=== PATIENT | female | born 1945 | race Caucasian/White ===

== ENCOUNTER 2016-10-02 17:36 | Emergency (ER) | payer MEDICARE, OTHER ==
[~2016-10-02] VITALS: Ht 167.6 cm; Wt 98.6 kg
[~2016-10-02 17:36] MED LIST: ASPI81CH7 CHEW; ATOR20TA15 PO; CALTTAB PO; CHOL100025 CHEW; COQ1200C PO; ISOS30TA3 PO; KRIL300C PO; LEVO75TA3 PO; LOSA100T2 PO; METO25TA6 PO; MULT-120 PO; NEXI20CA PO; VERA120T3 PO; ZOFR4TAB PO
[2016-10-02 17:45] VITALS: BP 145/91; PULSE 118; RESP 20; TEMP 98.3; O2SAT 96
[2016-10-02] MEDS ORDERED: ATOR20TA15 PO (18:20)
[2016-10-02] MEDS ORDERED: [UNRECOGNIZED DRUG - CODE] SL (18:20)
[2016-10-02] MEDS ORDERED: SENN8.6T8 PO (18:20)
[2016-10-02] MEDS ORDERED: ASCO1CHW3 PO (18:20)
[2016-10-02] MEDS ORDERED: CHOL100025 CHEW (18:20)
[2016-10-02] MEDS ORDERED: LACTCAP8 PO (18:20)
[2016-10-02] MEDS ORDERED: LOSA100T2 PO (18:20)
[2016-10-02] MEDS ORDERED: VERA1TAB17 PO (18:20)
[2016-10-02] MEDS ORDERED: TEMA15CA PO (18:20)
[2016-10-02] MEDS ORDERED: ONDA1TAB17 PO (18:20)
[2016-10-02] MEDS ORDERED: NEXI20CA PO (18:20)
[2016-10-02] MEDS ORDERED: HYDR-3516 PO (18:20)
--- NOTE | 2016-10-02 19:09 | PD ---
HPI Chief Complaint: Abdominal Pain Time Seen by Provider: 18:35 Travel History International Travel<30 days: No Contact w/Intl Traveler<30days: No Traveled to known affect area: No History of Present Illness HPI This 71-year-old female is complaining of abdominal pain. She has a history of metastatic breast cancer. She was initially diagnosed in 2008. She had a recurrence in 2012 and recently was found to have metastases to her liver and lung area and she sees Dr. Baptiste and started on chemotherapy recently. She is on about her fourth course of chemotherapy. He needed a blood and platelet transfusion last week. She thought she had some fever earlier but on further questioning it was only 99 8. She has a slight dry cough. She was having abdominal pain earlier the pain was across the epigastric area. She has no history of pancreatitis. PFSH Past Medical History Hx Anticoagulant Therapy: Yes (162MG. BABY ASA DAILY) Arthritis: Yes Asthma: No Autoimmune Disease: No Anxiety: No Depression: No Heart Rhythm Problems: Yes Cancer: Yes (BREAST, LYMPH) Cardiovascular Problems: Yes (HTN, CHOL) High Cholesterol: Yes Chemotherapy: Yes (09/30/16) Chest Pain: Yes Congestive Heart Failure: No COPD: No Cerebrovascular Accident: No Diabetes: Yes (PRE) Patient Takes Glucophage: No Diminished Hearing: Yes ([place] E[place]) Endocrine: Yes Gastrointestinal Disorders: Yes GERD: Yes Genitourinary: Yes Headaches: No Hiatal Hernia: No Heparin Induced Thrombocytopen: No Hypertension: Yes Immune Disorder: No Implanted Vascular Access Dvce: Yes Kidney Stones: No Musculoskeletal: Yes Neurologic: Yes Psychiatric: No Reproductive: No Respiratory: No Migraines: No Radiation Therapy: Yes (4 YEARS AGO) Renal Failure: No Seizures: No Sickle Cell Disease: No Sleep Apnea: Yes (C PAP AT NIGHT) Thyroid Disease: Yes Ulcer: No Tetanus Vaccination: < 5 Years Influenza Vaccination: Yes ?: Not Menopausal: Yes : 4 Para: 4 Tubal Ligation: Yes Past Surgical History Abdominal Surgery: No AICD: No Arteriovenous Shunt: No Cardiac Surgery: No Ear Surgery: No Endocrine Surgery: No Eye Surgery: No Genitourinary Surgery: No Hysterectomy: Yes Insulin Pump: No Joint Replacement: No Neurologic Surgery: No Oral Surgery: Yes (TONSILLECTOMY) Pacemaker: No Thoracic Surgery: No Tonsillectomy: Yes Other Surgery: Yes (Deviated septum repair ) Family History Family Hypercholesterolemia: Yes (BROTHER) Social History Alcohol Use: Yes (Rare) Tobacco Use: No Substance Use: No Allergies-Medications (Allergen,Severity, Reaction): Coded Allergies: Doxazosin (Verified Allergy, Severe, Anaphylaxis, 10/02/16) Doxycycline (Verified Allergy, Severe, Anaphylaxis, 10/02/16) Levaquin (Verified Allergy, Severe, Anaphylaxis, 10/02/16) Phenobarbital (Verified Allergy, Severe, Hives, 10/02/16) Silvadene (Verified Allergy, Severe, Rash, 10/02/16) Sulfa (Verified Allergy, Severe, Rash, 10/02/16) Zometa (Verified Allergy, Unknown, 10/02/16) Reported Meds & Prescriptions Reported Meds & Active Scripts Active Reported Hydrocodone-Acetaminophen 5-325 mg Tab 1 Tab PO Q6H PRN Temazepam 15 Mg Cap 15 Mg PO HS PRN Ondansetron (Ondansetron HCl) 8 Mg Tab 8 Mg PO TID PRN Vitamin C Gummies (Ascorbic Acid) 120 Mg Chew 1 Chew PO HS Nexium (Esomeprazole DR) 20 Mg Capdr 20 Mg PO DAILY Probiotic (Lactobacillus Acidophilus) 1 Cap Cap 1 Cap PO DAILY B-12-Sl (Cyanocobalamin) 1,000 Mcg Subl 5,000 Mcg SL DAILY Vitamin D3 (Cholecalciferol) 1,000 Unit Chew 2,000 Units CHEW DAILY Atorvastatin (Atorvastatin Calcium) 20 Mg Tab 20 Mg PO HS Losartan-Hydrochlorothiazide 100-25 Mg Tab 1 Tab PO DAILY Verapamil ER 24 HR (Verapamil HCl) 240 Mg Tab 120 Mg PO DAILY Krill Oil 300 Mg Cap 350 Mg PO DAILY Coq10 (Coenzyme Q10 (Ubidecarenone)) 200 Mg Cap 1 Cap PO DAILY Caltrate 600+D (Calcium Carbonate-Cholecalciferol) 600-800 Mg-Unit Tab 1 Tab PO DAILY Multivitamin Women (Multiple Vitamins W/ Minerals) 1 Tab Tab 1 Tab PO DAILY Aspirin Children's (Aspirin) 81 Mg Chew 162 Mg CHEW DAILY Metoprolol Succinate ER 24 HR (Metoprolol Succinate) 25 Mg Tab 25 Mg PO DAILY Isosorbide Mononitrate ER (Isosorbide Mononitrate) 30 Mg [place]rey 30 Mg PO DAILY Levothyroxine (Levothyroxine Sodium) 75 Mcg Tab 75 Mcg PO DAILY Review of Systems General / Constitutional: No: Fever, Chills Eyes: No: Diploplia HENT: No: Vertigo Cardiovascular: No: Chest Pain or Discomfort Respiratory: No: Cough, Wheezing Gastrointestinal: Positive: Nausea, Abdominal Pain Genitourinary: No: Frequency Musculoskeletal: No: Myalgias, Arthralgias Skin: No Rash Neurologic: No: Weakness Hematologic/Lymphatic: No: Easy Bruising Physical Exam Narrative GENERAL: Well-developed female SKIN: Warm and dry. HEAD: Atraumatic. Normocephalic. EYES: Pupils equal and round. No scleral icterus. No injection or drainage. ENT: No nasal bleeding or discharge. Mucous membranes pink and moist. NECK: Trachea midline. No JVD. CARDIOVASCULAR: Regular rate and rhythm. No murmur appreciated. RESPIRATORY: No accessory muscle use. Clear to auscultation. Breath sounds equal bilaterally. GASTROINTESTINAL: Abdomen soft, no focal tenderness or guarding nondistended. Hepatic and splenic margins not palpable. MUSCULOSKELETAL: No obvious deformities. No clubbing. No cyanosis. No edema. NEUROLOGICAL: Awake and alert. No obvious cranial nerve deficits. Motor grossly within normal limits. Normal speech. PSYCHIATRIC: Appropriate mood and affect; insight and judgment normal. Data Data Last Documented VS Vital Signs Date Time Temp Pulse Resp B/P Pulse Ox O2 Delivery O2 Flow Rate FiO2 10/02/16 19:15 101 18 160/89 98 Room Air 10/02/16 17:45 98.3 Orders Complete Blood Count With Diff (10/02/16 18:55) Comprehensive Metabolic Panel (10/02/16 18:55) Lipase (10/02/16 18:55) Urinalysis - C+S If Indicated (10/02/16 18:55) Ct Abd/Pel W Iv Contrast(Rout) (10/02/16 20:18) Iohexol 350 Inj (Omnipaque 350 Inj) (10/02/16 21:25) Hydromorphone Pf Inj (Dilaudid Pf Inj) (10/02/16 22:00) Ondansetron Inj (Zofran Inj) (10/02/16 22:00) Labs Laboratory Tests Test 10/02/16 19:42 White Blood Count 5.0 TH/MM3 Red Blood Count 3.79 MIL/MM3 Hemoglobin 10.6 GM/DL Hematocrit 32.5 % Mean Corpuscular Volume 85.8 FL Mean Corpuscular Hemoglobin 27.9 PG Mean Corpuscular Hemoglobin 32.5 % Concent Red Cell Distribution Width 19.0 % Platelet Count 60 TH/MM3 Mean Platelet Volume 7.4 FL Neutrophils (%) (Auto) 92.2 % Lymphocytes (%) (Auto) 5.2 % Monocytes (%) (Auto) 2.3 % Eosinophils (%) (Auto) 0.2 % Basophils (%) (Auto) 0.1 % Neutrophils # (Auto) 4.6 TH/MM3 Lymphocytes # (Auto) 0.3 TH/MM3 Monocytes # (Auto) 0.1 TH/MM3 Eosinophils # (Auto) 0.0 TH/MM3 Basophils # (Auto) 0.0 TH/MM3 CBC Comment AUTO DIFF Differential Comment AUTO DIFF CONFIRMED Platelet Estimate LOW Platelet Morphology Comment NORMAL Ovalocytes 1+ Urine Collection Type CLEAN CATCH Urine Color RICKEY Urine Turbidity CLEAR Urine pH 5.5 Urine Specific [place] 1.020 Urine Protein 30 mg/dL Urine Glucose (UA) NEG mg/dL Urine Ketones NEG mg/dL Urine Occult Blood SMALL Urine Nitrite NEG Urine Bilirubin SMALL Urine Leukocyte Esterase NEG Urine RBC 4-9 /hpf Urine WBC 0-2 /hpf Urine Squamous Epithelial 0-5 /hpf Cells Microscopic Urinalysis Comment CULT NOT INDICATED Sodium Level 138 MEQ/L Potassium Level 4.3 MEQ/L Chloride Level 102 MEQ/L Carbon Dioxide Level 26.7 MEQ/L Anion Gap 9 MEQ/L Blood Urea Nitrogen 33 MG/DL Creatinine 0.96 MG/DL Estimat Glomerular Filtration 57 ML/MIN Rate Random Glucose 109 MG/DL Calcium Level 10.0 MG/DL Total Bilirubin 2.0 MG/DL Aspartate Amino Transf 431 U/L (AST/SGOT) Alanine Aminotransferase 342 U/L (ALT/SGPT) Alkaline Phosphatase 580 U/L Total Protein 6.3 GM/DL Albumin 2.7 GM/DL Lipase 126 U/L [facility] Medical Decision Making Medical Screen Exam Complete: Yes Emergency Medical Condition: Yes Medical Record Reviewed: Yes Differential Diagnosis Differential includes gastritis, progressive cancer, ulcer disease, pancreatitis , adverse medication reaction Narrative Course Patient has elevation of her LFTs compared to previously. A CT scan was ordered which shows fairly extensive disease throughout the liver. Suspect her pain is secondary to progression of her metastatic disease Diagnosis Primary Impression: Metastatic breast cancer Additional Instructions: Take hydrocodone for pain, follow-up with Dr. BLACKMAN Disposition: 01 DISCHARGE HOME Condition: Stable Damon Toth MD Oct 02, 2016 19:09
[2016-10-02 19:15] VITALS: BP 160/89; PULSE 101; RESP 18; O2SAT 98
[2016-10-02 19:50] LABS: BLOOD, URINE SMALL (NEG); GLUCOSE,URINE NEG (NEG); KETONE, URINE NEG (NEG); NITRITE,URINE NEG (NEG); PH, URINE 5.5 (5.0-8.5)
[2016-10-02 19:51] LABS: AUTOMATED NEUTROPHIL # 4.6 TH/MM3 (1.8-7.7); BASOPHIL % 0.1 % (0.0-2.0); EOSINOPHIL % 0.2 % (0.0-4.0); HEMATOCRIT 32.5 % (35.0-46.0); LYMPH % 5.2 % (9.0-44.0); LYMPHOCYTE # 0.3 TH/MM3 (1.0-4.8); MEAN CELL VOLUME 85.8 FL (80.0-100.0); MEAN CORPUSCULAR HEMOGLOBIN 27.9 PG (27.0-34.0); MEAN CORPUSCULAR HGB CONC 32.5 % (32.0-36.0); MONO % 2.3 % (0.0-8.0); NEUT % 92.2 % (16.0-70.0); PLATELET COUNT 60 TH/MM3 (150-450); RED BLOOD COUNT 3.79 MIL/MM3 (4.00-5.30)
[2016-10-02 19:52] LABS: HEMO FLAGS AUTO DIFF
[2016-10-02 19:59] LABS: CHLORIDE 102 MEQ/L (98-107); POTASSIUM 4.3 MEQ/L (3.5-5.1); SODIUM (NA) 138 MEQ/L (136-145)
[2016-10-02 20:03] LABS: ANION GAP 9 MEQ/L (5-15); BICARBONATE 26.7 MEQ/L (21.0-32.0); BLOOD UREA NITROGEN 33 MG/DL (7-18)
[2016-10-02 20:05] LABS: OVALOCYTES 1+ (NORMAL); PLATELET ESTIMATE SMEAR LOW (NORMAL); PLATELET MORPHOLOGY NORMAL (NORMAL); SCAN/DIFF AUTO DIFF CONFIRMED
[2016-10-02 20:06] LABS: ALT (GPT) 342 U/L (10-53); AST (GOT) 431 U/L (15-37); GLOMERULAR FILTRATION RATE 57 ML/MIN (>89)
[2016-10-02 20:08] LABS: ALKALINE PHOSPHATASE 580 U/L (45-117)
[2016-10-02 20:12] LABS: URINE COLOR AMBER (YELLW/STRAW)
[2016-10-02 20:13] LABS: SQUAMOUS EPITHELIAL CELL URINE 0-5 /hpf (0-5); WBC, URINE 0-2 /hpf (0-5)
[2016-10-02 20:15] LABS: COMMENT (UR) CULT NOT INDICATED; CULTURE IF INDICATED CULT NOT INDICATED
[2016-10-02 21:12] LABS: METHOD OF COLLECTION CLEAN CATCH
[2016-10-02] MEDS ORDERED: IOHEXOL 350 MG/ML 10 ML VIAL (for RAD DIAG) IV ONE (21:25)
--- NOTE | 2016-10-02 21:46 | RADHPO ---
EXAM DATE/TIME: 10/02/2016 20:53 [facility] COMPARISON: No previous studies available for comparison. INDICATIONS : Diffuse abdominal pain. IV CONTRAST: 96 cc Omnipaque 350 (iohexol) IV ORAL CONTRAST: No oral contrast ingested. RADIATION DOSE: 19.71 CTDIvol (mGy) MEDICAL HISTORY : Carcinoma, breast. Metastatic, liver. Hypertension. SURGICAL HISTORY : Mastectomy, right. Hysterectomy. ENCOUNTER: Initial ACUITY: 1 day PAIN SCALE: 7/10 LOCATION: Abdomen. TECHNIQUE: Volumetric scanning of the abdomen and pelvis was performed. Using automated exposure control and ad justment of the mA and/or kV according to patient size, radiation dose was kept as low as reasonably achievable to obtain optimal diagnostic quality images. FINDINGS: LOWER LUNGS: There is an enlarged infrahilar lymph node versus perihilar mass in the left lower lobe with some adj acent consolidative parenchymal changes. Soft tissue density measures just over 2 cm. LIVER: Innumerable low density lesions of varying sizes involving both right and left lobes consistent with metastatic disease. No evidence of biliary ductal dilatation. Gallbladder is distended with mild diff use wall thickening. SPLEEN: Slightly greater than 1 cm low density lesion in the inferior aspect of the spleen. PANCREAS: Within normal limits. KIDNEYS: Large cyst arising from the posterior aspect of the right kidney. Smaller cysts in the lower pole reg ion. No hydronephrosis. ADRENAL GLANDS: Prominent nodular enlargement of the right adrenal gland. VASCULAR: There is no aortic aneurysm. BOWEL/MESENTERY: The stomach, small bowel, and colon demonstrate no acute abnormality. There is no free intraperitone al air or fluid. ABDOMINAL WALL: Within normal limits. RETROPERITONEUM: Mildly enlarged lymph nodes in the gastrohepatic ligament and celiac region. BLADDER: No wall thickening or mass. REPRODUCTIVE: Uterus surgically absent. No evidence of pelvic mass or free fluid. INGUINAL: There is no lymphadenopathy or hernia. MUSCULOSKELETAL: Within normal limits for patient age. CONCLUSION: Left infrahilar and medial left lung base process which is to be further evaluated. Recommend standar d contrasted CT of the chest for followup. Multiple liver metastases. Nonspecific distention and wall thickening involving the gallbladder. Nodular enlargement of the right adrenal gland. Haiedr Conley MD on October 02, 2016 at 21:36 Board Certified Radiologist. This report was verified electronically.
[2016-10-02] MEDS ORDERED: ONDANSETRON HCL 4 MG/2 ML VIAL IV PUSH ONE (22:00)
[2016-10-02] MEDS ORDERED: HYDROmorphone HCL PF 1 MG/ML VIAL IV PUSH ONE (22:00)
[2016-10-02 22:33] VITALS: BP 143/83; PULSE 95; RESP 18; O2SAT 95
[2016-10-02 22:38] VITALS: RESP 16
== END 2016-10-02 22:55 | disposition home or self-care (01) ==
LOC: PHED 17:36
DX: C78.7 Secondary malignant neoplasm of liver and intrahepatic bile duct (principal); C78.00 Secondary malignant neoplasm of unspecified lung; Z79.82 Long term (current) use of aspirin; I10 Essential (primary) hypertension; C50.919 Malignant neoplasm of unspecified site of unspecified female breast
CPT/HCPCS: 74177; 80053; 81001; 83690; 85025; 96374; 96375; 99284; J1170; J2405; Q9967

== ENCOUNTER 2016-10-18 21:38 | Emergency (ER) | payer MEDICARE, OTHER ==
[~2016-10-18] VITALS: Ht 167.6 cm; Wt 98.0 kg
[~2016-10-18 21:38] MED LIST changes: +ASCO1CHW3 PO; +HYDR-3516 PO; +LACTCAP8 PO; +ONDA1TAB17 PO; +TEMA15CA PO; -VERA120T3 PO; +VERA1TAB17 PO; -ZOFR4TAB PO; +[UNRECOGNIZED DRUG - CODE] SL
[2016-10-18 21:52] VITALS: BP 140/86; PULSE 110; RESP 18; TEMP 98.7; O2SAT 95
--- NOTE | 2016-10-18 22:14 | PD ---
HPI Chief Complaint: Flank/Kidney Pain Time Seen by Provider: 22:10 Travel History International Travel<30 days: No Contact w/Intl Traveler<30days: No Traveled to known affect area: No History of Present Illness HPI This is a 71-year-old female who has a history of metastatic breast cancer who presents to the emergency department with generalized weakness that's been going on for 2-3 days, constant, moderate severity, described as fatigued, not able to get up from her couch, feeling like she is drained. She does say she had a fever of 101.7 today. She has had a nonproductive cough. She is being seen by Dr. Hays for a gallbladder infection. She says her abdominal pain has been resolving. Her daughter says that her family has noticed that she's been very confused today, not able to tell them what medication she is taking, mixing things up, and trying to turn the TV off with her phone. They say this is unlike her. PFSH Past Medical History Hx Anticoagulant Therapy: Yes (162MG. BABY ASA DAILY) Arthritis: Yes Asthma: No Autoimmune Disease: No Anxiety: No Depression: No Heart Rhythm Problems: Yes Cancer: Yes (BREAST, LYMPH) Cardiovascular Problems: Yes (HTN, CHOL) High Cholesterol: Yes Chemotherapy: Yes (3 weeks ago) Chest Pain: Yes Congestive Heart Failure: No COPD: No Cerebrovascular Accident: No Diabetes: Yes (PRE) Diminished Hearing: Yes ([place] EAR) Endocrine: Yes Gastrointestinal Disorders: Yes GERD: Yes Genitourinary: Yes Headaches: No Hiatal Hernia: No Heparin Induced Thrombocytopen: No Hypertension: Yes Immune Disorder: No Implanted Vascular Access Dvce: Yes Kidney Stones: No Musculoskeletal: Yes Neurologic: Yes Psychiatric: No Reproductive: No Respiratory: No Migraines: No Radiation Therapy: Yes (4 YEARS AGO) Renal Failure: No Seizures: No Sickle Cell Disease: No Sleep Apnea: Yes (C PAP AT NIGHT) Thyroid Disease: Yes Ulcer: No ?: Not Menopausal: Yes : 4 Para: 4 Tubal Ligation: Yes Past Surgical History Abdominal Surgery: No AICD: No Arteriovenous Shunt: No Cardiac Surgery: No Ear Surgery: No Endocrine Surgery: No Eye Surgery: No Genitourinary Surgery: No Hysterectomy: Yes Insulin Pump: No Joint Replacement: No Neurologic Surgery: No Oral Surgery: Yes (TONSILLECTOMY) Pacemaker: No Thoracic Surgery: No Tonsillectomy: Yes Other Surgery: Yes (Deviated septum repair ) Family History Family Hypercholesterolemia: Yes (BROTHER) Social History Alcohol Use: Yes (Rare) Tobacco Use: No Substance Use: No Allergies-Medications (Allergen,Severity, Reaction): Coded Allergies: Doxazosin (Verified Allergy, Severe, Anaphylaxis, 10/02/16) Doxycycline (Verified Allergy, Severe, Anaphylaxis, 10/02/16) Levaquin (Verified Allergy, Severe, Anaphylaxis, 10/02/16) Phenobarbital (Verified Allergy, Severe, Hives, 10/02/16) Silvadene (Verified Allergy, Severe, Rash, 10/02/16) Sulfa (Verified Allergy, Severe, Rash, 10/02/16) Zometa (Verified Allergy, Unknown, 10/02/16) Reported Meds & Prescriptions Reported Meds & Active Scripts Active Reported Hydrocodone-Acetaminophen 5-325 mg Tab 1 Tab PO Q6H PRN Temazepam 15 Mg Cap 15 Mg PO HS PRN Ondansetron (Ondansetron HCl) 8 Mg Tab 8 Mg PO TID PRN Vitamin C Gummies (Ascorbic Acid) 120 Mg Chew 1 Chew PO HS Nexium (Esomeprazole DR) 20 Mg Capdr 20 Mg PO DAILY Probiotic (Lactobacillus Acidophilus) 1 Cap Cap 1 Cap PO DAILY B-12-Sl (Cyanocobalamin) 1,000 Mcg Subl 5,000 Mcg SL DAILY Vitamin D3 (Cholecalciferol) 1,000 Unit Chew 2,000 Units CHEW DAILY Atorvastatin (Atorvastatin Calcium) 20 Mg Tab 20 Mg PO HS Losartan-Hydrochlorothiazide 100-25 Mg Tab 1 Tab PO DAILY Verapamil ER 24 HR (Verapamil HCl) 240 Mg Tab 120 Mg PO DAILY Krill Oil 300 Mg Cap 350 Mg PO DAILY Coq10 (Coenzyme Q10 (Ubidecarenone)) 200 Mg Cap 1 Cap PO DAILY Caltrate 600+D (Calcium Carbonate-Cholecalciferol) 600-800 Mg-Unit Tab 1 Tab PO DAILY Multivitamin Women (Multiple Vitamins W/ Minerals) 1 Tab Tab 1 Tab PO DAILY Aspirin Children's (Aspirin) 81 Mg Chew 162 Mg CHEW DAILY Metoprolol Succinate ER 24 HR (Metoprolol Succinate) 25 Mg Tab 25 Mg PO DAILY Isosorbide Mononitrate ER (Isosorbide Mononitrate) 30 Mg [place] 30 Mg PO DAILY Levothyroxine (Levothyroxine Sodium) 75 Mcg Tab 75 Mcg PO DAILY Review of Systems Except as stated in HPI: all other systems reviewed are Neg Physical Exam Narrative GENERAL: Frail, no acute distress SKIN: Dry with skin tenting HEAD: Atraumatic. Normocephalic. EYES: Pupils equal and round. No injection or drainage. ENT: Dry mucous membranes NECK: Trachea midline. CARDIOVASCULAR: Regular rate and rhythm. No murmur appreciated. RESPIRATORY: Clear to auscultation. Breath sounds equal bilaterally. GASTROINTESTINAL: Abdomen soft, non-tender, nondistended. MUSCULOSKELETAL: No obvious deformities. NEUROLOGICAL: Awake and alert. No obvious cranial nerve deficits. Moving all extremities. PSYCHIATRIC: Appropriate mood and affect; insight and judgment normal. Data Data Last Documented VS Vital Signs Date Time Temp Pulse Resp B/P Pulse Ox O2 Delivery O2 Flow Rate FiO2 10/18/16 21:52 98.7 110 18 140/86 95 Orders Complete Blood Count With Diff (10/18/16 22:10) Comprehensive Metabolic Panel (10/18/16 22:10) ^ Insert Iv (10/18/16 22:10) Ct Brain W Iv Contrast (10/18/16 ) Type And Screen (10/18/16 22:10) Prothrombin Time / Inr (Pt) (10/18/16 22:10) Act Partial Throm Time (Ptt) (10/18/16 22:10) Urinalysis - C+S If Indicated (10/18/16 22:10) Chest, Single Ap (10/18/16 ) Blood Culture (10/18/16 22:10) Lactic Acid (10/18/16 22:10) Sodium Chlor 0.9% 1000 Ml Inj (Ns 1000 M (10/18/16 23:15) Influenzae A/B Antigen (10/18/16 23:03) Sodium Chlor 0.9% 1000 Ml Inj (Ns 1000 M (10/19/16 00:00) Iohexol 350 Inj (Omnipaque 350 Inj) (10/18/16 23:55) Labs Laboratory Tests Test 10/18/16 10/18/16 22:20 23:20 White Blood Count 5.0 TH/MM3 Red Blood Count 3.26 MIL/MM3 Hemoglobin 9.4 GM/DL Hematocrit 28.7 % Mean Corpuscular Volume 88.1 FL Mean Corpuscular Hemoglobin 28.8 PG Mean Corpuscular Hemoglobin 32.7 % Concent Red Cell Distribution Width 23.0 % Platelet Count 92 TH/MM3 Mean Platelet Volume 7.7 FL Neutrophils (%) (Auto) % Lymphocytes (%) (Auto) % Monocytes (%) (Auto) % Eosinophils (%) (Auto) % Basophils (%) (Auto) % Neutrophils # (Auto) TH/MM3 Lymphocytes # (Auto) TH/MM3 Monocytes # (Auto) TH/MM3 Eosinophils # (Auto) TH/MM3 Basophils # (Auto) TH/MM3 CBC Comment AUTO DIFF Differential Total Cells 100 Counted Neutrophils % (Manual) 61 % Lymphocytes % 19 % Monocytes % 19 % Eosinophils % 1 % Neutrophils # (Manual) 3.1 TH/MM3 Differential Comment FINAL DIFF MANUAL Platelet Estimate LOW Platelet Morphology Comment NORMAL Ovalocytes 1+ Prothrombin Time 11.4 SEC Prothromb Time International 1.0 RATIO Ratio Activated Partial 27.6 SEC Thromboplast Time Sodium Level 138 MEQ/L Potassium Level 3.9 MEQ/L Chloride Level 102 MEQ/L Carbon Dioxide Level 24.9 MEQ/L Anion Gap 11 MEQ/L Blood Urea Nitrogen 28 MG/DL Creatinine 1.20 MG/DL Estimat Glomerular Filtration 44 ML/MIN Rate Random Glucose 159 MG/DL Lactic Acid Level 2.3 mmol/L Calcium Level 8.9 MG/DL Total Bilirubin 0.7 MG/DL Aspartate Amino Transf 125 U/L (AST/SGOT) Alanine Aminotransferase 59 U/L (ALT/SGPT) Alkaline Phosphatase 506 U/L Total Protein 6.3 GM/DL Albumin 2.7 GM/DL Blood Type A NEGATIVE Antibody Screen NEGATIVE Urine Color YELLOW Urine Turbidity CLEAR Urine pH 5.5 Urine Specific [place] 1.009 Urine Protein NEG mg/dL Urine Glucose (UA) NEG mg/dL Urine Ketones NEG mg/dL Urine Occult Blood MOD Urine Nitrite NEG Urine Bilirubin NEG Urine Leukocyte Esterase NEG Urine RBC 0-3 /hpf Urine Squamous Epithelial 0-5 /hpf Cells Urine Mucus OCC /lpf Microscopic Urinalysis Comment CULT NOT INDICATED MDM Medical Decision Making Medical Screen Exam Complete: Yes Emergency Medical Condition: Yes Interpretation(s) Afebrile, tachycardic White blood cell count is 5 Hemoglobin is 9.4 Platelet count is 92 19% monocytes Mild renal insufficiency Lactic acid is 2.3 LFTs are improved from September Urinalysis is negative for infection Chest x-ray is negative for pneumonia CT is negative for acute process Differential Diagnosis Pneumonia, urinary tract infection, cholecystitis, dehydration, brain metastases Narrative Course This is a 71-year-old female who presents to the emergency department with 3 days of increasing weakness, fever today, and reports from her family that she has been increasingly confused. She is placed on a monitor and an IV was established. Labs are obtained which demonstrates some dehydration with acute kidney injury and a lactic acid of 2.3. White blood cell count is normal and demonstrates a monocytic shift. She is afebrile here. She is pancytopenic but doesn't require platelets or blood transfusion at this time. Chest x-ray was negative for pneumonia and urinalysis is negative for urinary tract infection. She's had cystitis recently by her biliary labs are improved from prior and she has no tenderness on exam. She is nontoxic appearing. A CT with IV contrast of the brain was obtained due to concerns about the patient's mental status which was reassuring with no evidence of metastatic disease. I think the patient can be discharged home following 2 L of IV fluids and she can follow-up with her outpatient oncologist. I suspect her symptoms are in the setting of dehydration and a viral syndrome. Diagnosis Primary Impression: Viral syndrome Additional Impression: Dehydration Patient Instructions: General Instructions Additional Instructions: If you develop severe or worsening abdominal pain, fever>100.4, persistent vomiting or inability to eat or drink return to the emergency department immediately. Follow up with your primary care physician in 1-2 days for a check-up. Med/Other Pt SpecificInfo: No Change to Meds Disposition: 01 DISCHARGE HOME Condition: Stable Gita Aldana MD Oct 18, 2016 22:14
[2016-10-18 22:48] LABS: HEMATOCRIT 28.7 % (35.0-46.0); MEAN CELL VOLUME 88.1 FL (80.0-100.0); MEAN CORPUSCULAR HEMOGLOBIN 28.8 PG (27.0-34.0); MEAN CORPUSCULAR HGB CONC 32.7 % (32.0-36.0); PLATELET COUNT 92 TH/MM3 (150-450); RED BLOOD COUNT 3.26 MIL/MM3 (4.00-5.30)
[2016-10-18 22:54] LABS: HEMO FLAGS AUTO DIFF
[2016-10-18 22:56] LABS: CHLORIDE 102 MEQ/L (98-107); POTASSIUM 3.9 MEQ/L (3.5-5.1); SODIUM (NA) 138 MEQ/L (136-145)
[2016-10-18 23:00] LABS: ANION GAP 11 MEQ/L (5-15); BICARBONATE 24.9 MEQ/L (21.0-32.0); BLOOD UREA NITROGEN 28 MG/DL (7-18)
[2016-10-18 23:03] LABS: ALT (GPT) 59 U/L (10-53); AST (GOT) 125 U/L (15-37); GLOMERULAR FILTRATION RATE 44 ML/MIN (>89)
[2016-10-18 23:05] LABS: TOTAL BILIRUBIN ADULT 0.7 MG/DL (0.2-1.0)
[2016-10-18 23:06] LABS: ALKALINE PHOSPHATASE 506 U/L (45-117)
--- NOTE | 2016-10-18 23:06 | RADHPO ---
EXAM DATE/TIME: 10/18/2016 22:47 [facility] COMPARISON: CHEST SINGLE AP, June 18, 2016, 14:47. INDICATIONS : Fever. Chemo patient. MEDICAL HISTORY : Carcinoma, lung. Carcinoma, breast. SURGICAL HISTORY : Hysterectomy. Infusaport ENCOUNTER: Initial ACUITY: 2 days PAIN SCORE: 6/10 LOCATION: Bilateral chest FINDINGS: A single view of the chest demonstrates right [id number] in superior vena cava. Minimal basilar at electasis. No effusion. No pneumothorax. Heart size within normal limits. Multiple remote right rib f ractures. CONCLUSION: 1. Minimal basilar atelectasis. No effusion or pneumothorax. Aaron Sewell MD on October 18, 2016 at 23:01 Board Certified Radiologist. This report was verified electronically.
[2016-10-18] MEDS ORDERED: SODIUM CHLOR 0.9% 1000 ML INJ 1,000 ML IV ONE (23:15)
[2016-10-18 23:19] LABS: EOSINOPHILS 1 % (0-4); NEUTROPHIL # MANUAL DIFF 3.1 TH/MM3 (1.8-7.7); POLYS (SEG NEUTROPHILS) 61 % (16-70); WBC DIFF SAMPLE 100
[2016-10-18 23:20] LABS: OVALOCYTES 1+ (NORMAL)
[2016-10-18 23:21] LABS: PLATELET ESTIMATE SMEAR LOW (NORMAL); PLATELET MORPHOLOGY NORMAL (NORMAL); SCAN/DIFF FINAL DIFF MANUAL
[2016-10-18 23:34] LABS: APTT (PATIENT) 27.6 SEC (24.3-30.1); PROTHROMBIN TIME - PATIENT 11.4 SEC (9.8-11.6)
[2016-10-18 23:43] LABS: GLUCOSE,URINE NEG (NEG); KETONE, URINE NEG (NEG); NITRITE,URINE NEG (NEG); PH, URINE 5.5 (5.0-8.5)
[2016-10-18 23:45] VITALS: BP 152/80; PULSE 75; RESP 18; O2SAT 97
[2016-10-18 23:51] LABS: BLOOD, URINE MOD (NEG)
[2016-10-18 23:54] LABS: URINE COLOR YELLOW (YELLW/STRAW)
[2016-10-18 23:55] LABS: MUCUS URINE OCC /lpf (OCC)
[2016-10-18] MEDS ORDERED: IOHEXOL 350 MG/ML 10 ML VIAL (for RAD DIAG) IV ONE (23:55)
[2016-10-18 23:56] LABS: SQUAMOUS EPITHELIAL CELL URINE 0-5 /hpf (0-5)
[2016-10-18 23:57] LABS: COMMENT (UR) CULT NOT INDICATED; CULTURE IF INDICATED CULT NOT INDICATED; RBC, URINE 0-3 /hpf (0-3)
[2016-10-19] MEDS ORDERED: SODIUM CHLOR 0.9% 1000 ML INJ 1,000 ML IV ONE
--- NOTE | 2016-10-19 00:19 | RADHPO ---
EXAM DATE/TIME: 10/18/2016 23:25 [facility] COMPARISON: No previous studies available for comparison. INDICATIONS : Altered mental status. Metastatic disease. IV CONTRAST: 95 cc Omnipaque 350 (iohexol) IV RADIATION DOSE: 56.62 CTDIvol (mGy) MEDICAL HISTORY : Hypertension. Carcinoma, breast. SURGICAL HISTORY : Tonsillectomy. ENCOUNTER: Initial ACUITY: 1 day PAIN SCALE: 0/10 LOCATION: cranial TECHNIQUE: Multiple contiguous axial images were obtained of the head. Using automated exposure control and adj ustment of the mA and/or kV according to patient size, radiation dose was kept as low as reasonably a chievable to obtain optimal diagnostic quality images. FINDINGS: CEREBRUM: The ventricles are normal for age. No evidence of midline shift, cerebral edema or blood products. No extra-axial fluid collections are seen. POSTERIOR FOSSA: The cerebellum and brainstem are intact. The 4th ventricle is midline. The cerebellar pontine angle is unremarkable. EXTRACRANIAL: The visualized portion of the orbits is intact. SKULL: The calvaria is intact. No evidence of skull fracture. CONCLUSION: No acute intracranial abnormality. Charly Ibanez MD on October 19, 2016 at 0:16 Board Certified Radiologist. This report was verified electronically.
[2016-10-19 01:05] VITALS: BP 155/78; PULSE 89; RESP 17; O2SAT 96
[2016-10-19 01:56] VITALS: BP 142/77
== END 2016-10-19 01:55 | disposition home or self-care (01) ==
LOC: PHED 21:38
DX: B34.9 Viral infection, unspecified (principal); E86.0 Dehydration; C50.919 Malignant neoplasm of unspecified site of unspecified female breast; I10 Essential (primary) hypertension
CPT/HCPCS: 70460; 71010; 80053; 81001; 83605; 85007; 85027; 85610; 85730; 86850; 86900; 86901; 87040; 87804; 96360; 99285; J7030; Q9967

== ENCOUNTER 2016-11-06 02:23 | Inpatient (IN) | payer MEDICARE, OTHER ==
[~2016-11-06] VITALS: Ht 167.6 cm; Wt 88.9 kg
[2016-11-06] VITALS (8 sets, daily range): BP systolic 136–172; BP diastolic 78–92; PULSE 82–105; RESP 16–18; TEMP 97.7–98.8; O2SAT 97–99
[2016-11-06] MEDS ORDERED: SODIUM CHLORID 0.9% 500 ML INJ 500 ML IV ONE (02:45)
[2016-11-06 02:54] LABS: AUTOMATED NEUTROPHIL # 2.9 TH/MM3 (1.8-7.7); BASOPHIL % 0.5 % (0.0-2.0); EOSINOPHIL % 0.7 % (0.0-4.0); HEMATOCRIT 30.2 % (35.0-46.0); LYMPH % 18.1 % (9.0-44.0); LYMPHOCYTE # 0.9 TH/MM3 (1.0-4.8); MEAN CELL VOLUME 93.9 FL (80.0-100.0); MEAN CORPUSCULAR HEMOGLOBIN 31.1 PG (27.0-34.0); MEAN CORPUSCULAR HGB CONC 33.1 % (32.0-36.0); MONO % 21.3 % (0.0-8.0); NEUT % 59.4 % (16.0-70.0); PLATELET COUNT 46 TH/MM3 (150-450); RED BLOOD COUNT 3.21 MIL/MM3 (4.00-5.30); WHITE BLOOD COUNT 4.9 TH/MM3 (4.0-11.0)
--- NOTE | 2016-11-06 03:06 | PD ---
HPI Chief Complaint: General Weakness Time Seen by Provider: 02:33 Travel History International Travel<30 days: No Contact w/Intl Traveler<30days: No Traveled to known affect area: No History of Present Illness HPI 71yo F with PMH of metastatic breast CA presents to the ED with c/o progressive generalized weakness in the last week. States she also had 10 pound weight loss in last week. Pt felt like her heart was beating fast and HR was 110 by EVAC. Denies any fever, chest pain, sob, vomiting. Pt has RUQ abdominal pain and was recently evaluated and thought to have cholecystitis. Pt was evaluated by Dr. aHys and recommended observation since liver enzymes were trending down and pt also had low platelets and had platelet transfusion last week. Pt saw Dr. Brownlee on 10/14/16 and said last chemo was right before . PFSH Past Medical History Hx Anticoagulant Therapy: Yes (162MG. BABY ASA DAILY) Arthritis: Yes Asthma: No Autoimmune Disease: No Anxiety: No Depression: No Heart Rhythm Problems: Yes Cancer: Yes (BREAST, LYMPH) Cardiovascular Problems: Yes (HTN, CHOL) High Cholesterol: Yes Chemotherapy: Yes (3 weeks ago) Chest Pain: Yes Congestive Heart Failure: No COPD: No Cerebrovascular Accident: No Diabetes: Yes (PRE) Patient Takes Glucophage: No Diminished Hearing: Yes ([place]) Endocrine: Yes Gastrointestinal Disorders: Yes GERD: Yes Genitourinary: Yes Headaches: No Hiatal Hernia: No Heparin Induced Thrombocytopen: No Hypertension: Yes Immune Disorder: No Implanted Vascular Access Dvce: Yes (port) Kidney Stones: No Musculoskeletal: Yes Neurologic: Yes Psychiatric: No Reproductive: No Respiratory: No Migraines: No Radiation Therapy: Yes (4 YEARS AGO) Renal Failure: No Seizures: No Sickle Cell Disease: No Sleep Apnea: Yes (C PAP AT NIGHT) Thyroid Disease: Yes Ulcer: No Tetanus Vaccination: < 5 Years Influenza Vaccination: Yes Menopausal: Yes : 4 Para: 4 Tubal Ligation: Yes Past Surgical History Abdominal Surgery: No AICD: No Arteriovenous Shunt: No Cardiac Surgery: No Ear Surgery: No Endocrine Surgery: No Eye Surgery: No Genitourinary Surgery: No Hysterectomy: Yes Insulin Pump: No Joint Replacement: No Neurologic Surgery: No Oral Surgery: Yes (TONSILLECTOMY) Pacemaker: No Thoracic Surgery: No Tonsillectomy: Yes Other Surgery: Yes (Deviated septum repair ) Family History Family Hypercholesterolemia: Yes (BROTHER) Social History Alcohol Use: Yes (Rare) Tobacco Use: No Substance Use: No Allergies-Medications (Allergen,Severity, Reaction): Coded Allergies: Doxazosin (Verified Allergy, Severe, Anaphylaxis, 11/06/16) Doxycycline (Verified Allergy, Severe, Anaphylaxis, 11/06/16) Levaquin (Verified Allergy, Severe, Anaphylaxis, 11/06/16) Phenobarbital (Verified Allergy, Severe, Hives, 11/06/16) Silvadene (Verified Allergy, Severe, Rash, 11/06/16) Sulfa (Verified Allergy, Severe, Rash, 11/06/16) Zometa (Verified Allergy, Unknown, 11/06/16) Reported Meds & Prescriptions Reported Meds & Active Scripts Active Reported Hydrocodone-Acetaminophen 5-325 mg Tab 1 Tab PO Q6H PRN Temazepam 15 Mg Cap 15 Mg PO HS PRN Ondansetron (Ondansetron HCl) 8 Mg Tab 8 Mg PO TID PRN Vitamin C Gummies (Ascorbic Acid) 120 Mg Chew 1 Chew PO HS Nexium (Esomeprazole DR) 20 Mg Capdr 20 Mg PO DAILY Probiotic (Lactobacillus Acidophilus) 1 Cap Cap 1 Cap PO DAILY B-12-Sl (Cyanocobalamin) 1,000 Mcg Subl 5,000 Mcg SL DAILY Vitamin D3 (Cholecalciferol) 1,000 Unit Chew 2,000 Units CHEW DAILY Atorvastatin (Atorvastatin Calcium) 20 Mg Tab 20 Mg PO HS Losartan-Hydrochlorothiazide 100-25 Mg Tab 1 Tab PO DAILY Verapamil ER 24 HR (Verapamil HCl) 240 Mg Tab 120 Mg PO DAILY Krill Oil 300 Mg Cap 350 Mg PO DAILY Coq10 (Coenzyme Q10 (Ubidecarenone)) 200 Mg Cap 1 Cap PO DAILY Caltrate 600+D (Calcium Carbonate-Cholecalciferol) 600-800 Mg-Unit Tab 1 Tab PO DAILY Multivitamin Women (Multiple Vitamins W/ Minerals) 1 Tab Tab 1 Tab PO DAILY Aspirin Children's (Aspirin) 81 Mg Chew 162 Mg CHEW DAILY Metoprolol Succinate ER 24 HR (Metoprolol Succinate) 25 Mg Tab 25 Mg PO DAILY Isosorbide Mononitrate ER (Isosorbide Mononitrate) 30 Mg [place] 30 Mg PO DAILY Levothyroxine (Levothyroxine Sodium) 75 Mcg Tab 75 Mcg PO DAILY Review of Systems Except as stated in HPI: all other systems reviewed are Neg Physical Exam Narrative GENERAL: 71yo F in mild distress. SKIN: Focused skin assessment warm/dry. HEAD: Atraumatic. Normocephalic. EYES: Pupils equal and round. No scleral icterus. No injection or drainage. ENT: No nasal bleeding or discharge. Mucous membranes dry. NECK: Trachea midline. No JVD. CARDIOVASCULAR: Mildly tachycardic at 105bpm. No murmur appreciated. RESPIRATORY: No accessory muscle use. Clear to auscultation. Breath sounds equal bilaterally. GASTROINTESTINAL: Abdomen soft, +TTP RUQ. No rebound tenderness or guarding. MUSCULOSKELETAL: No obvious deformities. No clubbing. No cyanosis. No edema. NEUROLOGICAL: Awake and alert. No obvious cranial nerve deficits. Motor grossly within normal limits. Normal speech. PSYCHIATRIC: Appropriate mood and affect; insight and judgment normal. Data Data Last Documented VS Vital Signs Date Time Temp Pulse Resp B/P Pulse Ox O2 Delivery O2 Flow Rate FiO2 11/06/16 02:32 105 18 94 Room Air 11/06/16 02:28 98.8 139/92 Orders Complete Blood Count With Diff (11/06/16 02:33) Basic Metabolic Panel (Bmp) (11/06/16 02:33) Hepatic Functional Panel (11/06/16 02:33) Electrocardiogram (11/06/16 ) Urinalysis - C+S If Indicated (11/06/16 02:33) Ct Abd/Pel W Iv Contrast(Rout) (11/06/16 ) Sodium Chlorid 0.9% 500 Ml Inj (Ns 500 M (11/06/16 02:45) Lactic Acid Sepsis Protocol (11/06/16 02:33) Blood Culture (11/06/16 02:33) Piperacil-Tazo 2.25 Gm Premix (Zosyn 2.2 (11/06/16 04:00) Sodium Chlor 0.9% 1000 Ml Inj (Ns 1000 M (11/06/16 04:00) Iohexol 350 Inj (Omnipaque 350 Inj) (11/06/16 04:20) Morphine Inj (Morphine Inj) (11/06/16 04:45) Labs Laboratory Tests Test 11/06/16 11/06/16 02:37 03:19 White Blood Count 4.9 TH/MM3 Red Blood Count 3.21 MIL/MM3 Hemoglobin 10.0 GM/DL Hematocrit 30.2 % Mean Corpuscular Volume 93.9 FL Mean Corpuscular Hemoglobin 31.1 PG Mean Corpuscular Hemoglobin 33.1 % Concent Red Cell Distribution Width 28.0 % Platelet Count 46 TH/MM3 Mean Platelet Volume 9.8 FL Neutrophils (%) (Auto) 59.4 % Lymphocytes (%) (Auto) 18.1 % Monocytes (%) (Auto) 21.3 % Eosinophils (%) (Auto) 0.7 % Basophils (%) (Auto) 0.5 % Neutrophils # (Auto) 2.9 TH/MM3 Lymphocytes # (Auto) 0.9 TH/MM3 Monocytes # (Auto) 1.0 TH/MM3 Eosinophils # (Auto) 0.0 TH/MM3 Basophils # (Auto) 0.0 TH/MM3 CBC Comment AUTO DIFF Differential Comment AUTO DIFF CONFIRMED Platelet Estimate LOW Platelet Morphology Comment NORMAL Ovalocytes 1+ Sodium Level 134 MEQ/L Potassium Level 4.2 MEQ/L Chloride Level 99 MEQ/L Carbon Dioxide Level 26.5 MEQ/L Anion Gap 9 MEQ/L Blood Urea Nitrogen 32 MG/DL Creatinine 1.01 MG/DL Estimat Glomerular Filtration 54 ML/MIN Rate Random Glucose 120 MG/DL Lactic Acid Level 2.4 mmol/L Calcium Level 11.4 MG/DL Total Bilirubin 3.2 MG/DL Direct Bilirubin 2.4 MG/DL Indirect Bilirubin 0.8 MG/DL Aspartate Amino Transf 264 U/L (AST/SGOT) Alanine Aminotransferase 115 U/L (ALT/SGPT) Alkaline Phosphatase 973 U/L Total Protein 6.3 GM/DL Albumin 2.6 GM/DL Urine Color ORANGE Urine Turbidity HAZY Urine pH 5.5 Urine Specific [place] 1.024 Urine Protein 30 mg/dL Urine Glucose (UA) NEG mg/dL Urine Ketones NEG mg/dL Urine Occult Blood MOD Urine Nitrite NEG Urine Bilirubin NEG Urine Urobilinogen 4.0 MG/DL Urine Leukocyte Esterase NEG Urine RBC 7 /hpf Urine WBC 3 /hpf Urine Squamous Epithelial 6 /hpf Cells Urine Hyaline Casts 13 /lpf Urine Mucus FEW /lpf Microscopic Urinalysis Comment CULT NOT INDICATED MDM Medical Decision Making Medical Screen Exam Complete: Yes Emergency Medical Condition: Yes Interpretation(s) EKG: NSR 98bpm. Normal axis. No ST segment elevation or depression. Differential Diagnosis Tumor lysis syndrome vs. Sepsis vs. chemo induced weakness vs. spread of metastatic disease vs. cholecystitis Narrative Course 71yo F with metastatic breast cancer to liver, femur and lung here with worsening generalized weakness that has been worst this week. Pt given morphine 6mg IV for pain. Said she cant even walk and has not been able to eat or drink much. Labs reviewed, no leukocytosis but pt [place]. [place] [address] but improved from previous. Lactic acid mildly elevated at 2.4. BUN/creatinine elevated at 32/1.01. Calcium elevated at 11.4. AST/ALT/Alk phos markedly elevated from 10/18/16 at 264/115/973. UA showed moderate blood. Culture not indicated. CTa/p showed widespread hepatic metastatic disease. There is small ascites. Pt given 1.5liters of NS IVF so far as well as zosyn. Pt had taken her zofran prior to ED arrival and was not that nauseous. Will admit pt for hypercalcemia, dehydration, and worsening heptatic metastatic disease. Discussed with Dr. [place] and accepted to her service. Diagnosis Primary Impression: Dehydration Additional Impression: Hypercalcemia Admitting Information Admitting Physician Requests: Observation Lucina Nesbitt DO Nov 06, 2016 03:06
[2016-11-06 03:20] LABS: BICARBONATE 26.5 MEQ/L (21.0-32.0); POTASSIUM 4.2 MEQ/L (3.5-5.1)
[2016-11-06 03:22] LABS: INDIRECT BILIRUBIN 0.8 MG/DL (0.0-0.8); TOTAL BILIRUBIN ADULT 3.2 MG/DL (0.2-1.0)
[2016-11-06 03:45] LABS: HEMO FLAGS AUTO DIFF
[2016-11-06 03:46] LABS: OVALOCYTES 1+ (NORMAL); PLATELET ESTIMATE SMEAR LOW (NORMAL); PLATELET MORPHOLOGY NORMAL (NORMAL); SCAN/DIFF AUTO DIFF CONFIRMED
[2016-11-06] MEDS ORDERED: PIPERACIL-TAZO 2.25 GM PREMIX 50 ML IV ONE (04:00)
[2016-11-06] MEDS ORDERED: SODIUM CHLOR 0.9% 1000 ML INJ 1,000 ML IV ONE (04:00)
[2016-11-06 04:03] LABS: BLOOD, URINE MOD (NEG); COMMENT (UR) CULT NOT INDICATED; CULTURE IF INDICATED CULT NOT INDICATED; GLUCOSE,URINE NEG (NEG); HYALINE CAST, URINE 13 /lpf (RARE); KETONE, URINE NEG (NEG); MUCUS URINE FEW /lpf (OCC); NITRITE,URINE NEG (NEG); PH, URINE 5.5 (5.0-8.5); SQUAMOUS EPITHELIAL CELL URINE 6 /hpf (0-5)
[2016-11-06 04:04] LABS: URINE COLOR ORANGE (YELLW/STRAW)
[2016-11-06] MEDS ORDERED: IOHEXOL 350 MG/ML 10 ML VIAL (for RAD DIAG) IV ONE (04:20)
--- NOTE | 2016-11-06 04:44 | RADRPT ---
EXAM DATE/TIME: 11/06/2016 04:05 [facility] COMPARISON: CT ABDOMEN & PELVIS W CONTRAST, October 02, 2016, 20:53. INDICATIONS : Abdomnial pain. General weakness. IV CONTRAST: 95 cc Omnipaque 350 (iohexol) IV ORAL CONTRAST: No oral contrast ingested. RADIATION DOSE: 15.46 CTDIvol (mGy) MEDICAL HISTORY : Metastatic, breast. Hypertension. Gastroesophageal reflux disease. SURGICAL HISTORY : Mastectomy, right. Tonsillectomy.Hysterectomy.Tubal ligation. ENCOUNTER: Initial ACUITY: 1 day PAIN SCALE: 5/10 LOCATION: Right upper quadrant TECHNIQUE: Volumetric scanning of the abdomen and pelvis was performed. Using automated exposure control and ad justment of the mA and/or kV according to patient size, radiation dose was kept as low as reasonably achievable to obtain optimal diagnostic quality images. FINDINGS: LOWER LUNGS: Small right pleural effusion similar to before. Subcarinal and left hilar lymphadenopathy partly incl uded on the study and also not definitively changed. LIVER: Innumerable hepatic metastatic lesions are again noted, measuring up to 5.2 cm in size. I don't see a significant change in the number or size of lesions. No intrahepatic Suarez distention. Overall m ild hepatomegaly, 24.5 cm craniocaudal, minimally worse. There are necrotic appearing lymph nodes in the harpreet hepatis not significantly changed. The CT appearance of the gallbladder within normal limit s. SPLEEN: 2 low density lesions are again seen in the spleen unchanged, the largest 12 mm in size. PANCREAS: Within normal limits. KIDNEYS: Normal in size and shape. There is no at mass, stone or hydronephrosis. Unchanged benign cyst on the right. ADRENAL GLANDS: Heterogeneous mass again seen in the right adrenal gland measuring 17 x 51 mm in size, presumably met astatic. Left adrenal gland is normal. VASCULAR: There is no aortic aneurysm. BOWEL/MESENTERY: No obstruction or acute inflammatory changes are demonstrated. Small ascites has developed, perihepat ic and in the pelvic cavity. ABDOMINAL WALL: Within normal limits. RETROPERITONEUM: Scattered aortocaval lymph nodes measuring up to 1 cm unchanged. BLADDER: No wall thickening or mass. REPRODUCTIVE: Within normal limits. INGUINAL: There is no lymphadenopathy or hernia. MUSCULOSKELETAL: Chronic L5 sclerotic area not significantly changed and probably degenerative. No other focal bone le aftab demonstrated. There are old right lower rib fractures and degenerative changes of the spine. CONCLUSION: 1. Widespread hepatic metastatic disease. The lesions are not significantly changed but the liver is slightly larger in the interim and there is now small ascites. 2. The low density lesions of the spleen are unchanged. 3. The right adrenal lesion is not significantly changed. 4. No obstruction or acute inflammatory changes are seen. 5. Pathologic-appearing harpreet hepatis lymphadenopathy again noted. There are upper limits of normal r etroperitoneal lymph nodes. 6. Unchanged sclerotic area right side of the L5 vertebral body, nonspecific but not significantly ch anged and quite possibly degenerative. No other focal bone lesion is demonstrated. 7. Small effusion and subcarinal as well as left hilar lymphadenopathy partly seen of the lower chest . Haider Topete MD on November 06, 2016 at 4:34 Board Certified Radiologist. This report was verified electronically.
[2016-11-06] MEDS ORDERED: MORPHINE SULFATE 8 MG/ML INJ IV PUSH ONE (04:45)
[2016-11-06 04:47] LABS: LACTIC ACID GHOST NOT REPORTABLE
[2016-11-06] MEDS ORDERED: NALOXONE HCL 0.4 MG/ML AMP IV PRN (05:15)
[2016-11-06] MEDS ORDERED: BISACODYL 10 MG SUPP RECTAL PRN (07:30)
--- NOTE | 2016-11-06 07:42 | EKG ---
Date Performed: 11/06/2016 Time Performed: 02:48:05 PTAGE: 71 years EKG: Sinus rhythm NORMAL ECG COMPARED TO PRIOR ELECTROCARDIOGRAM, Premature ventricular contractions are no longer pre sent. PREVIOUS TRACING : 06/18/2016 13.36 DOCTOR: Emerson Dwyer Interpretating Date/Time 11/06/2016 07:40:50
[2016-11-06] MEDS: SODIUM CHLOR 0.9% 1000 ML INJ 1,000 ML IV SCH ×2 (08:17→18:00)
[2016-11-06] MEDS: METOPROLOL SUCCINATE 25 MG EXTENDED RELEASE TAB PO SCH (08:17)
[2016-11-06] MEDS: ISOSORBIDE MONONITRATE 30 MG TAB PO SCH (08:18)
[2016-11-06] MEDS: LEVOTHYROXINE SODIUM 75 MCG TAB PO SCH (08:18)
[2016-11-06] MEDS: SODIUM CHLORIDE 0.9% FLUSH 10 ML FLUSH IV FLUSH SCH ×2 (08:18→21:00)
[2016-11-06] MEDS: LACTOBACILLUS ACIDOPHILUS TAB PO SCH (08:18)
[2016-11-06] MEDS: PANTOPRAZOLE SOD 20 MG DELAYED RELEASE TAB PO SCH (08:18)
[2016-11-06] MEDS: ASPIRIN 81 MG CHEW TAB CHEW SCH (08:18)
[2016-11-06] MEDS: VERAPAMIL HCL 120 MG SUSTAINED RELEASE TAB PO SCH (08:22)
[2016-11-06] MEDS: ONDANSETRON HCL 4 MG/2 ML VIAL IVP PRN ×2 (08:23→16:55)
--- NOTE | 2016-11-06 09:42 | HHI.HP ---
cc: Brandon Brownlee MD HPI Service [facility] Primary Care Physician Brandon Brownlee MD Admission Diagnosis Hypercalcemia, dehydration Diagnoses: Chief Complaint: weakness, abdominal pain Travel History International Travel<30 Days: No Contact w/Intl Traveler <30 Da: No Traveled to Known Affected Are: No History of Present Illness 71-year-old female with history of metastatic breast cancer on palliative chemotherapy, HTN, HLD, GERD, osteoarthritis, CAD, presents with a one-week history of generalized weakness, weight loss, and abdominal pain. She locates the pain to the RUQ without radiation, described as a constant moderate pain, unchanged over the past month. Denies any nausea/vomiting/diarrhea. Denies fevers or chills. She reports poor appetite and has only been able to eat very small amounts. She reports difficulty swallowing solids and sometimes liquids which she believes is getting worse. She has lost 11lbs over the past week. Family at bedside reports she has been deteriorating over the past week and is very unsteady on her feet even with a walker and they are worried about her falling. She has been seeing her oncologist Dr. Brownlee who was concerned for cholecystitis, referred her to general surgeon Dr. Hays who recommended observation for now with liver enzymes trending down. Review of Systems Except as stated in HPI: all other systems reviewed are Neg Past Family Social History Past Medical History metastatic breast cancer on palliative chemotherapy HTN HLD GERD osteoarthritis CAD hypothyroidism peripheral neuropathy hemorrhoids Past Surgical History Infusaport Colonoscopy 2015 Right knee arthroscopy 2015 Mastectomy 2009 Left rotator cuff repair 2008 Tubal ligation 1980 Hysterectomy 1982 Tonsillectomy 1955 Reported Medications Hydrocodone-Acetaminophen 5-325 mg Tab 1 Tab PO Q6H PRN Temazepam 15 Mg Cap 15 Mg PO HS PRN Ondansetron (Ondansetron HCl) 8 Mg Tab 8 Mg PO TID PRN Vitamin C Gummies (Ascorbic Acid) 120 Mg Chew 1 Chew PO HS Nexium (Esomeprazole DR) 20 Mg Capdr 20 Mg PO DAILY Probiotic (Lactobacillus Acidophilus) 1 Cap Cap 1 Cap PO DAILY B-12-Sl (Cyanocobalamin) 1,000 Mcg Subl 5,000 Mcg SL DAILY Vitamin D3 (Cholecalciferol) 1,000 Unit Chew 2,000 Units CHEW DAILY Atorvastatin (Atorvastatin Calcium) 20 Mg Tab 20 Mg PO HS Losartan-Hydrochlorothiazide 100-25 Mg Tab 1 Tab PO DAILY Verapamil ER 24 HR (Verapamil HCl) 240 Mg Tab 120 Mg PO DAILY Krill Oil 300 Mg Cap 350 Mg PO DAILY Coq10 (Coenzyme Q10 (Ubidecarenone)) 200 Mg Cap 1 Cap PO DAILY Caltrate 600+D (Calcium Carbonate-Cholecalciferol) 600-800 Mg-Unit Tab 1 Tab PO DAILY Multivitamin Women (Multiple Vitamins W/ Minerals) 1 Tab Tab 1 Tab PO DAILY Aspirin Children's (Aspirin) 81 Mg Chew 162 Mg CHEW DAILY Metoprolol Succinate ER 24 HR (Metoprolol Succinate) 25 Mg Tab 25 Mg PO DAILY Isosorbide Mononitrate ER (Isosorbide Mononitrate) 30 Mg [place] 30 Mg PO DAILY Levothyroxine (Levothyroxine Sodium) 75 Mcg Tab 75 Mcg PO DAILY Allergies: Coded Allergies: Doxazosin (Verified Allergy, Severe, Anaphylaxis, 11/06/16) Doxycycline (Verified Allergy, Severe, Anaphylaxis, 11/06/16) Levaquin (Verified Allergy, Severe, Anaphylaxis, 11/06/16) Phenobarbital (Verified Allergy, Severe, Hives, 11/06/16) Silvadene (Verified Allergy, Severe, Rash, 11/06/16) Sulfa (Verified Allergy, Severe, Rash, 11/06/16) Zometa (Verified Allergy, Unknown, 11/06/16) Active Ordered Medications Current Medications Medications (Trade) Dose Ordered Sig/Anrdew Route Start Time Stop Time Status Last Admin (NS Flush) 2 ml UNSCH PRN IV FLUSH 11/06/16 05:15 (NS Flush) 2 ml BID IV FLUSH 11/06/16 09:00 11/06/16 08:18 (Narcan Inj) 0.4 mg UNSCH PRN IV 11/06/16 05:15 (Aspirin Chew) 162 mg DAILY CHEW 11/06/16 09:00 11/06/16 08:18 (Lipitor) 20 mg HS PO 11/06/16 21:00 (Imdur) 30 mg DAILY PO 11/06/16 09:00 11/06/16 08:18 (Lactinex) 1 tab DAILY PO 11/06/16 09:00 11/06/16 08:18 (Synthroid) 75 mcg DAILY@06 PO 11/06/16 09:00 11/06/16 08:18 (Toprol Xl) 25 mg DAILY PO 11/06/16 09:00 11/06/16 08:17 (Restoril) 15 mg HS PRN PO 11/06/16 07:30 (Protonix) 20 mg DAILY PO 11/06/16 09:00 11/06/16 08:18 (Isoptin Sr) 120 mg DAILY PO 11/06/16 09:00 11/06/16 08:22 (Zofran Inj) 4 mg Q6H PRN IVP 11/06/16 07:30 11/06/16 08:23 (Dulcolax Supp) 10 mg DAILY PRN RECTAL 11/06/16 07:30 (Roxicodone) 10 mg Q4H PRN PO 11/06/16 08:00 (Morphine Inj) 4 mg Q3H PRN IV 11/06/16 07:30 Oxycodone HCl 5 mg 5 mg Q4H PRN PO 11/06/16 07:30 (NS 1000 ml Inj) 1,000 ml @ 100 mls/hr Q10H IV 11/06/16 08:00 11/06/16 08:17 Family History Mother with hypertension, dementia, age 90 Father with heart disease, age 56 Social History Denies any tobacco, alcohol, or illicit drug use. Physical Exam Vital Signs Vital Signs Date Time Temp Pulse Resp B/P Pulse Ox O2 Delivery O2 Flow Rate FiO2 11/06/16 08:00 97.8 88 18 158/84 97 Nasal Cannula 2 11/06/16 08:00 84 18 97 Nasal Cannula 2 11/06/16 07:07 16 11/06/16 06:47 98.4 82 18 136/78 97 Nasal Cannula 2 11/06/16 02:32 105 18 94 Room Air 11/06/16 02:28 98.8 105 18 139/92 97 Physical Exam GENERAL: Well-nourished, well-developed elderly female patient in [facility]. SKIN: Warm and dry. No rash. HEAD: Normocephalic. Atraumatic. EYES: Pupils equal and round. No scleral icterus. No injection or drainage. ENT: No nasal bleeding or discharge. Mucous membranes pink and moist. Oropharynx with mild white patchy exudate. NECK: Supple. Trachea midline. CARDIOVASCULAR: Regular rate and rhythm. S1, S2 noted. No murmur appreciated. RESPIRATORY: No accessory muscle use. Clear to auscultation. Breath sounds equal bilaterally. GASTROINTESTINAL: Abdomen soft, nondistended, mild diffuse right sided abdominal tenderness to palpation. Normoactive bowel sounds x4. MUSCULOSKELETAL: No obvious deformities. Extremities without clubbing, cyanosis , or edema. NEUROLOGICAL: Awake and alert. No obvious cranial nerve deficits. Motor grossly within normal limits. 5/5 muscle strength in bilateral upper and lower extremities. Normal speech. PSYCHIATRIC: Appropriate mood and affect; insight and judgment normal. Laboratory Laboratory Tests Test 11/06/16 11/06/16 11/06/16 02:37 03:19 05:28 White Blood Count 4.9 Red Blood Count 3.21 Hemoglobin 10.0 Hematocrit 30.2 Mean Corpuscular Volume 93.9 Mean Corpuscular Hemoglobin 31.1 Mean Corpuscular Hemoglobin 33.1 Concent Red Cell Distribution Width 28.0 Platelet Count 46 Mean Platelet Volume 9.8 Neutrophils (%) (Auto) 59.4 Lymphocytes (%) (Auto) 18.1 Monocytes (%) (Auto) 21.3 Eosinophils (%) (Auto) 0.7 Basophils (%) (Auto) 0.5 Neutrophils # (Auto) 2.9 Lymphocytes # (Auto) 0.9 Monocytes # (Auto) 1.0 Eosinophils # (Auto) 0.0 Basophils # (Auto) 0.0 CBC Comment AUTO DIFF Differential Comment AUTO DIFF CONFIRMED Platelet Estimate LOW Platelet Morphology Comment NORMAL Ovalocytes 1+ Sodium Level 134 Potassium Level 4.2 Chloride Level 99 Carbon Dioxide Level 26.5 Anion Gap 9 Blood Urea Nitrogen 32 Creatinine 1.01 Estimat Glomerular Filtration 54 Rate Random Glucose 120 Lactic Acid Level 2.4 2.1 Calcium Level 11.4 Total Bilirubin 3.2 Direct Bilirubin 2.4 Indirect Bilirubin 0.8 Aspartate Amino Transf 264 (AST/SGOT) Alanine Aminotransferase 115 (ALT/SGPT) Alkaline Phosphatase 973 Total Protein 6.3 Albumin 2.6 Urine Color ORANGE Urine Turbidity HAZY Urine pH 5.5 Urine Specific [place] 1.024 Urine Protein 30 Urine Glucose (UA) NEG Urine Ketones NEG Urine Occult Blood MOD Urine Nitrite NEG Urine Bilirubin NEG Urine Urobilinogen 4.0 Urine Leukocyte Esterase NEG Urine RBC 7 Urine WBC 3 Urine Squamous Epithelial 6 Cells Urine Hyaline Casts 13 Urine Mucus FEW Microscopic Urinalysis Comment CULT NOT INDICATED Date/Time Procedure Status Source Growth 11/06/16 02:37 Aerobic Blood Culture Received Blood Peripheral Pending 11/06/16 02:37 Anaerobic Blood Culture Received Blood Peripheral Pending Result Diagram: 11/06/16 0237 11/06/16 0237 Imaging Last Impressions Abdomen/Pelvis CT 11/06/16 0000 Signed Impressions: Service Date/Time: Sunday, November 06, 2016 04:05 - CONCLUSION: 1. Widespread hepatic metastatic disease. The lesions are not significantly changed but the liver is slightly larger in the interim and there is now small ascites. 2. The low density lesions of the spleen are unchanged. 3. The right adrenal lesion is not significantly changed. 4. No obstruction or acute inflammatory changes are seen. 5. Pathologic-appearing harpreet hepatis lymphadenopathy again noted. There are upper limits of normal retroperitoneal lymph nodes. 6. Unchanged sclerotic area right side of the L5 vertebral body, nonspecific but not significantly changed and quite possibly degenerative. No other focal bone lesion is demonstrated. 7. Small effusion and subcarinal as well as left hilar lymphadenopathy partly seen of the lower chest. Haider Topete MD Assessment and Plan Assessment and Plan 71-year-old female with history of metastatic breast cancer on palliative chemotherapy, HTN, HLD, GERD, osteoarthritis, CAD, presents with a one-week history of generalized weakness, weight loss, and right upper quadrant abdominal pain. Generalized Weakness: suspect multifactorial with metastatic breast cancer, abdominal pain, decreased oral intake. Lactic Acid 2.4. Blood cultures collected. UA negative. S/p IV Zosyn in the ED. -Give IVF. -Monitor labs and blood cultures -Consult PT. Metastatic Breast Cancer: undergoing palliative chemotherapy with oncologist Dr. Brownlee -consult Dr. Brownlee -pain control with oxycodone and IV morphine prn Transaminitis with RUQ Abdominal Pain, Weight Loss, Dysphagia: suspect secondary to hepatic metastatic disease vs subacute cholecystitis. CT Abd/ Pelvis images reviewed, showed widespread hepatic metastatic disease; lesions not significantly changed but the liver is slightly larger in the interim and there is now small ascites; low density lesions of the spleen are unchanged; right adrenal lesion is not significantly changed; No obstruction or acute inflammatory changes are seen; Pathologic-appearing harpreet hepatis lymphadenopathy again noted. Liver enzymes trending up now, T. bili 0.7 --> 3.2 , AST 125 --> 264, ALT 59 --> 115, Alk Phos 506 --> 973 -recently evaluated by surgeon Dr. Hays who recommended observation for now with liver enzymes trending down, however now liver enzymes trending up -supportive treatment with IVF, antiemetics, pain control prn. -consulted oncologist Dr. 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 Suspect secondary to dehydration, decreased oral intake. -given IVF -recheck BMP Hypertension: chronic, stable -continue patient's metoprolol and verapamil -held patient's losartan/HCTZ for now with elevated BUN and recent decreased po intake -monitor BP, adjust antihypertensives as needed Hyperlipidemia: chronic, stable -continue patient's statin Hypothyroidism: chronic, stable -continue patient's levothyroxine CAD: chronic, stable -continue patient's aspirin, imdur, BB DVT Prophylaxis: teds/SCDs Written by Amaya Logan, acting as scribe for Dr. Barney on 11/06/16 at 10:55. This note was transcribed by [email or web address]. I, Dr. Karol Barney personally performed the history, physical exam, and medical decision making; and confirmed the accuracy of the information in the transcribed note. Authenticated by Dr. Karol Barney on 11/06/16 at 10:55. Discussed Condition With Patient, Amaya Seo PA-C Nov 06, 2016 09:42 Karol Barney MD Nov 06, 2016 12:38
[2016-11-06 09:57] LABS: AUTOMATED NEUTROPHIL # 1.8 TH/MM3 (1.8-7.7); BASOPHIL % 0.7 % (0.0-2.0); EOSINOPHIL % 1.1 % (0.0-4.0); HEMATOCRIT 26.1 % (35.0-46.0); HEMO FLAGS AUTO DIFF; LYMPH % 19.4 % (9.0-44.0); LYMPHOCYTE # 0.6 TH/MM3 (1.0-4.8); MEAN CELL VOLUME 94.2 FL (80.0-100.0); MEAN CORPUSCULAR HEMOGLOBIN 32.6 PG (27.0-34.0); MEAN CORPUSCULAR HGB CONC 34.6 % (32.0-36.0); MONO % 22.7 % (0.0-8.0); NEUT % 56.1 % (16.0-70.0); PLATELET COUNT 43 TH/MM3 (150-450); RED BLOOD COUNT 2.77 MIL/MM3 (4.00-5.30); RED CELL DISTRIBUTION WIDTH 27.1 % (11.6-17.2); WHITE BLOOD COUNT 3.1 TH/MM3 (4.0-11.0)
[2016-11-06 10:20] LABS: KERATOCYTES OCC (NORMAL)
[2016-11-06 10:21] LABS: OVALOCYTES 1+ (NORMAL); PLATELET ESTIMATE SMEAR LOW (NORMAL); PLATELET MORPHOLOGY NORMAL (NORMAL); SCAN/DIFF AUTO DIFF CONFIRMED
[2016-11-06 10:24] LABS: ALKALINE PHOSPHATASE 854 U/L (45-117); ALT (GPT) 101 U/L (10-53); ANION GAP 6 MEQ/L (5-15); AST (GOT) 248 U/L (15-37); BICARBONATE 26.7 MEQ/L (21.0-32.0); BLOOD UREA NITROGEN 29 MG/DL (7-18); CHLORIDE 102 MEQ/L (98-107); GLOMERULAR FILTRATION RATE 60 ML/MIN (>89); SODIUM (NA) 135 MEQ/L (136-145); TOTAL BILIRUBIN ADULT 2.6 MG/DL (0.2-1.0)
[2016-11-06 10:29] LABS: POTASSIUM 4.5 MEQ/L (3.5-5.1)
--- NOTE | 2016-11-06 10:53 | PD.CONS ---
HPI History of Present Illness This is a 71 year old female with a history of metastatic breast cancer, on palliative chemotherapy, who presents to the ER with a one week history of generalized weakness, weight loss, and right upper quadrant pain. LFTs elevated with T. Bili 2.6, AST 248, ALT 101, Alk Phosph 854. I went in to see the patient, but she was eating lunch and said "We are going to have to do this later, I haven't head anything to eat since 2am and I am eating lunch." I tried to explain that I was with the GI service and just needed to get some information from her so we could hopefully find out why she is having pain and her LFTs were elevated. She agreed to answer a few questions, but is a poor historian. She states that she gets pain in her right upper quadrant. She reports this is intermittent, but that she is unable to describe it or tell me how long she has had it. She does not believe it is related to food intake. She sometimes has nausea, but could not tell me if she vomits with this or if she has had decreased appetite, lost weight, moving her bowels okay, had any fevers or chills. She then stated again that she does not want to answer any more questions and politely asked me to leave so she could finish her meal. Looking at the records, she has metastatic breast cancer and is on Palliative chemotherapy with carboplatin and Gemzar. Prior to this, she had right mastectomy, taxol and avastin, radiation and abraxane and radiation in 2012 for recurrence to the right neck. She was recently seen in the ER for right upper quadrant pain and this was attributed to cholecystitis. She was referred to Dr. Hays, who recommended observation since her liver enzymes and pain had improved and almost resolved when he saw the patient. She came in for weakness , weight loss and right upper quadrant pain. CT scan of the abdomen and pelvis (11/06/16)----> 1. Widespread hepatic metastatic disease. The lesions are not significantly changed but the liver is slightly larger in the interim and there is now small ascites. 2. The low density lesions of the spleen are unchanged. 3. The right adrenal lesion is not significantly changed. 4. No obstruction or acute inflammatory changes are seen. 5. Pathologic-appearing harpreet hepatis lymphadenopathy again noted. There are upper limits of normal retroperitoneal lymph nodes. 6. Unchanged sclerotic area right side of the L5 vertebral body, nonspecific but not significantly changed and quite possibly degenerative. No other focal bone lesion is demonstrated. 7. Small effusion and subcarinal as well as left hilar lymphadenopathy partly seen of the lower chest. The patient reports she is not aware of any metastatic disease to the liver, but according to records, Dr. Brownlee noted that she had a PET scan (05/22/16) which revealed uptake in multiple pulmonary nodules left lung, left hilum, and mediastinum, and multiple liver masses, extensive bone mets, L2, L4, S1, Sacral ala, left proximal femur. There was also a liver biopsy with revealed adenocarcinoma consistent with breast mets. (Ally Rosario) PFSH Past Medical History Metastatic breast cancer on palliative chemotherapy HTN HLD GERD Osteoarthritis CAD Hypothyroidism Peripheral neuropathy Hemorrhoids Past Surgical History Infusaport Colonoscopy 2014 Right knee arthroscopy 2014 Mastectomy 2008 Left rotator cuff repair 2007 Tubal ligation 1979 Hysterectomy 1981 Tonsillectomy 1955 (Ally Rosario) Coded Allergies: Doxazosin (Verified Allergy, Severe, Anaphylaxis, 11/06/16) Doxycycline (Verified Allergy, Severe, Anaphylaxis, 11/06/16) Levaquin (Verified Allergy, Severe, Anaphylaxis, 11/06/16) Phenobarbital (Verified Allergy, Severe, Hives, 11/06/16) Silvadene (Verified Allergy, Severe, Rash, 11/06/16) Sulfa (Verified Allergy, Severe, Rash, 11/06/16) Zometa (Verified Allergy, Unknown, 11/06/16) Medications Allergies Coded Allergies Type Severity Reaction Last Updated Verified Doxazosin Allergy Severe Anaphylaxis 11/06/16 Yes Doxycycline Allergy Severe Anaphylaxis 11/06/16 Yes Levaquin Allergy Severe Anaphylaxis 11/06/16 Yes Phenobarbital Allergy Severe Hives 11/06/16 Yes Silvadene Allergy Severe Rash 11/06/16 Yes Sulfa Allergy Severe Rash 11/06/16 Yes Zometa Allergy Unknown 11/06/16 Yes Active Scripts Medications Dose Route/Sig Days Date Category Hydrocodone-Acetaminophen 5-325 mg Tab 1 Tab PO Q6H PRN 10/02/16 Reported Temazepam 15 Mg Cap 15 Mg PO HS PRN 10/02/16 Reported Ondansetron (Ondansetron HCl) 8 Mg Tab 8 Mg PO TID PRN 10/02/16 Reported Vitamin C Gummies (Ascorbic Acid) 120 Mg Chew 1 Chew PO HS 10/02/16 Reported Nexium (Esomeprazole DR) 20 Mg Capdr 20 Mg PO DAILY 10/02/16 Reported Probiotic (Lactobacillus Acidophilus) 1 Cap Cap 1 Cap PO DAILY 10/02/16 Reported B-12-Sl (Cyanocobalamin) 1,000 Mcg Subl 5,000 Mcg SL DAILY 10/02/16 Reported Vitamin D3 (Cholecalciferol) 1,000 Unit Chew 2,000 Units CHEW DAILY 10/02/16 Reported Atorvastatin (Atorvastatin Calcium) 20 Mg Tab 20 Mg PO HS 10/02/16 Reported Losartan-Hydrochlorothiazide 100-25 Mg Tab 1 Tab PO DAILY 10/02/16 Reported Verapamil ER 24 HR (Verapamil HCl) 240 Mg Tab 120 Mg PO DAILY 10/02/16 Reported Krill Oil 300 Mg Cap 350 Mg PO DAILY 06/18/16 Reported Coq10 (Coenzyme Q10 (Ubidecarenone)) 200 Mg Cap 1 Cap PO DAILY 06/18/16 Reported Caltrate 600+D (Calcium Carbonate-Cholecalciferol) 600-800 Mg-Unit Tab 1 Tab PO DAILY 06/18/16 Reported Multivitamin Women (Multiple Vitamins W/ Minerals) 1 Tab Tab 1 Tab PO DAILY 06/18/16 Reported Aspirin Children's (Aspirin) 81 Mg Chew 162 Mg CHEW DAILY 06/18/16 Reported Metoprolol Succinate ER 24 HR (Metoprolol Succinate) 25 Mg Tab 25 Mg PO DAILY 06/18/16 Reported Isosorbide Mononitrate ER (Isosorbide Mononitrate) 30 Mg [place] 30 Mg PO DAILY 06/18/16 Reported Levothyroxine (Levothyroxine Sodium) 75 Mcg Tab 75 Mcg PO DAILY 06/18/16 Reported Family History Mother with hypertension, dementia, age 90 Father with heart disease, age 56 Social History Denies any tobacco, alcohol, or illicit drug use. (Ally Rosario) Review of Systems Gastrointestinal: COMPLAINS OF: Abdominal pain ROS Pt not cooperative with review of systems. She does report RUQ pain, but did not want to answer any more questions and stated that she wanted to be left alone. (Ally Rosario) GI Exam Vitals I&O Vital Signs Date Time Temp Pulse Resp B/P Pulse Ox O2 Delivery O2 Flow Rate FiO2 11/06/16 09:56 98.0 84 16 140/83 99 Room Air 11/06/16 08:00 97.8 88 18 158/84 97 Nasal Cannula 2 11/06/16 08:00 84 18 97 Nasal Cannula 2 11/06/16 07:07 16 11/06/16 06:47 98.4 82 18 136/78 97 Nasal Cannula 2 11/06/16 02:32 105 18 94 Room Air 11/06/16 02:28 98.8 105 18 139/92 97 I/O 11/05/16 11/05/16 11/05/16 11/06/16 11/06/16 11/06/16 07:00 15:00 23:00 07:00 15:00 23:00 Intake Total 300 ml Balance 300 ml Intake Oral 300 ml # Bowel Movements 0 Imaging Last Impressions Abdomen/Pelvis CT 11/06/16 0000 Signed Impressions: Service Date/Time: Sunday, November 06, 2016 04:05 - CONCLUSION: 1. Widespread hepatic metastatic disease. The lesions are not significantly changed but the liver is slightly larger in the interim and there is now small ascites. 2. The low density lesions of the spleen are unchanged. 3. The right adrenal lesion is not significantly changed. 4. No obstruction or acute inflammatory changes are seen. 5. Pathologic-appearing harpreet hepatis lymphadenopathy again noted. There are upper limits of normal retroperitoneal lymph nodes. 6. Unchanged sclerotic area right side of the L5 vertebral body, nonspecific but not significantly changed and quite possibly degenerative. No other focal bone lesion is demonstrated. 7. Small effusion and subcarinal as well as left hilar lymphadenopathy partly seen of the lower chest. Haider Topete MD Laboratory Test 11/06/16 11/06/16 11/06/16 11/06/16 02:37 03:19 05:28 09:40 White Blood Count 4.9 TH/MM3 3.1 TH/MM3 Red Blood Count 3.21 MIL/MM3 2.77 MIL/MM3 Hemoglobin 10.0 GM/DL 9.1 GM/DL Hematocrit 30.2 % 26.1 % Mean Corpuscular Volume 93.9 FL 94.2 FL Mean Corpuscular Hemoglobin 31.1 PG 32.6 PG Mean Corpuscular Hemoglobin 33.1 % 34.6 % Concent Red Cell Distribution Width 28.0 % 27.1 % Platelet Count 46 TH/MM3 43 TH/MM3 Mean Platelet Volume 9.8 FL 10.3 FL Neutrophils (%) (Auto) 59.4 % 56.1 % Lymphocytes (%) (Auto) 18.1 % 19.4 % Monocytes (%) (Auto) 21.3 % 22.7 % Eosinophils (%) (Auto) 0.7 % 1.1 % Basophils (%) (Auto) 0.5 % 0.7 % Neutrophils # (Auto) 2.9 TH/MM3 1.8 TH/MM3 Lymphocytes # (Auto) 0.9 TH/MM3 0.6 TH/MM3 Monocytes # (Auto) 1.0 TH/MM3 0.7 TH/MM3 Eosinophils # (Auto) 0.0 TH/MM3 0.0 TH/MM3 Basophils # (Auto) 0.0 TH/MM3 0.0 TH/MM3 CBC Comment AUTO DIFF AUTO DIFF Differential Comment AUTO DIFF AUTO DIFF CONFIRMED CONFIRMED Platelet Estimate LOW LOW Platelet Morphology Comment NORMAL NORMAL Ovalocytes 1+ 1+ Sodium Level 134 MEQ/L 135 MEQ/L Potassium Level 4.2 MEQ/L 4.5 MEQ/L Chloride Level 99 MEQ/L 102 MEQ/L Carbon Dioxide Level 26.5 MEQ/L 26.7 MEQ/L Anion Gap 9 MEQ/L 6 MEQ/L Blood Urea Nitrogen 32 MG/DL 29 MG/DL Creatinine 1.01 MG/DL 0.93 MG/DL Estimat Glomerular Filtration 54 ML/MIN 60 ML/MIN Rate Random Glucose 120 MG/DL 118 MG/DL Lactic Acid Level 2.4 mmol/L 2.1 mmol/L 1.8 mmol/L Calcium Level 11.4 MG/DL 10.2 MG/DL Total Bilirubin 3.2 MG/DL 2.6 MG/DL Direct Bilirubin 2.4 MG/DL Indirect Bilirubin 0.8 MG/DL Aspartate Amino Transf 264 U/L 248 U/L (AST/SGOT) Alanine Aminotransferase 115 U/L 101 U/L (ALT/SGPT) Alkaline Phosphatase 973 U/L 854 U/L Total Protein 6.3 GM/DL 5.7 GM/DL Albumin 2.6 GM/DL 2.2 GM/DL Urine Color ORANGE Urine Turbidity HAZY Urine pH 5.5 Urine Specific [place] 1.024 Urine Protein 30 mg/dL Urine Glucose (UA) NEG mg/dL Urine Ketones NEG mg/dL Urine Occult Blood MOD Urine Nitrite NEG Urine Bilirubin NEG Urine Urobilinogen 4.0 MG/DL Urine Leukocyte Esterase NEG Urine RBC 7 /hpf Urine WBC 3 /hpf Urine Squamous Epithelial 6 /hpf Cells Urine Hyaline Casts 13 /lpf Urine Mucus FEW /lpf Microscopic Urinalysis Comment CULT NOT INDICATED Keratocytes OCC Date/Time Procedure Status Source Growth 11/06/16 02:37 Aerobic Blood Culture Received Blood Peripheral Pending 11/06/16 02:37 Anaerobic Blood Culture Received Blood Peripheral Pending Physical Examination HEENT: Normocephalic; atraumatic; no jaundice. CHEST: CTA, diminished CARDIAC: RRR ABDOMEN: Soft, mild RUQ tenderness, bowel sounds are present in all four quadrants. EXTREMITIES: Mild BLE edema. SKIN: Normal; no rash; no jaundice. CASE WORK AIDE: No focal deficits; Lethargic and oriented times three. (Ally Rosario) Assessment and Plan Plan ASSESSMENT: - Right upper quadrant pain, nausea. CT scan of the abdomen and pelvis (11/06/16 )----> 1. Widespread hepatic metastatic disease. The lesions are not significantly changed but the liver is slightly larger in the interim and there is now small ascites. 2. The low density lesions of the spleen are unchanged. 3. The right adrenal lesion is not significantly changed. 4. No obstruction or acute inflammatory changes are seen. 5. Pathologic-appearing harpreet hepatis lymphadenopathy again noted. There are upper limits of normal retroperitoneal lymph nodes. 6. Unchanged sclerotic area right side of the L5 vertebral body, nonspecific but not significantly changed and quite possibly degenerative. No other focal bone lesion is demonstrated. 7. Small effusion and subcarinal as well as left hilar lymphadenopathy partly seen of the lower chest. LFTs elevated with T. Bili 2.6, AST 248, ALT 101, Alk Phosph 854. She was recently seen in the ER for right upper quadrant pain and this was attributed to cholecystitis based on distended, wall thickening of the GB. She was seen by Dr. Hays, who recommended observation since her liver enzymes and pain had improved and almost resolved when he saw the patient. Of note, her gb appears normal on the most recent ct exam. ? related to metastatic disease. - Elevated LFTs. CT as above. The patient reports she is not aware of any metastatic disease to the liver, but according to records, Dr. Brownlee noted that she had a PET scan (05/22/16) which revealed uptake in multiple pulmonary nodules left lung, left hilum, and mediastinum, and multiple liver masses, extensive bone mets, L2, L4, S1, Sacral ala, left proximal femur. There was also a liver biopsy with revealed adenocarcinoma consistent with breast mets. She has had elevated LFTs since July of this year. ? related to metastatic disease. - Anemia. . - Metastatic breast cancer. On palliative chemotherapy with Dr. Brownlee. Looking at the records, she has metastatic breast cancer and is on Palliative chemotherapy with carboplatin and Gemzar. She cannot tell me when she last had this. Prior to this, she had right mastectomy, taxol and avastin, radiation and abraxane and radiation in 2012 for recurrence to the right neck. PLAN: - ANAIS - PPI - Monitor labs - Avoid hepatotoxic meds - Suspect that her pain and elevated LFTs could be related to metastatic disease to the liver, but will discuss with Dr. Whyte re: further imaging ( Ally Rosario) Physician Comments Patient seen and examined Agree with above Continue with current supportive care Monitor labs Patient also reports dysphagia to solids on occasion therefore will probably pursue endoscopy Wednesday to further evaluate (Favio Whyte MD) Ally Rosario Nov 06, 2016 10:53 Favio Whyte MD Nov 06, 2016 23:18
[2016-11-06] MEDS: NYSTAT/DIPHENHY/LIDO MOUTHWASH (Adult) 120ML SWISH-SWAL SCH ×3 (13:00→21:00)
[2016-11-06] MEDS ORDERED: PAMIDRONATE INJ 90 MG in SODIUM CHLORID 0.9% 500 ML INJ 500 ML IV ONE (13:00)
--- NOTE | 2016-11-06 14:37 | MB ---
cc: REMINGTON JEONG M.D., ABDUL J. M.D. DATE OF CONSULTATION: 11/06/2016. REASON FOR CONSULTATION: Questionable biliary colic. HISTORY OF PRESENT ILLNESS: This is a pleasant unfortunate 71-year-old female who has been seen as an outpatient. She has a widely metastatic breast cancer. She had undergone surgery up [place] and was getting treatment by Dr. Brownlee. She has known multiple liver mets. I saw her as an outpatient about six weeks ago where there was some consideration of an episode of acalculous cholecystitis that was successfully treated with nonoperative therapy and antibiotic therapy. She was a high risk for surgical intervention maximal medical therapy was instituted with the agreement with the patient and her family. She has done quite well from that standpoint. We were able to re-start her chemotherapy but she has become a little bit more weaker and is having some pain in the right lower quadrant. She came into the emergency room. I was asked to see her while she is in the hospital. PAST MEDICAL HISTORY: 1. Hypertension. 2. Hypothyroidism. 3. Peripheral neuropathy. 4. Reflux. 5. Metastatic breast cancer on palliative chemotherapy. PAST SURGICAL HISTORY: 1. Mastectomy back in 2008 when her breast cancer was found. 2. She has had a hysterectomy. 3. Tubal ligation. 4. Knee surgery. 5. Infusaport on the right side. MEDICATIONS: Obtained within the chart and will not be repeated. REVIEW OF SYSTEMS: Her main complaint is some nausea, feeling ill, weak. She has some mild soreness in the right upper quadrant. PHYSICAL EXAMINATION: GENERAL: On physical exam, she has lost all her hair. NECK: The neck is supple. CHEST: Fairly clear. ABDOMEN: Slightly obese. She has some mild soreness in the right upper quadrant. No rebound or guarding. EXTREMITIES: Mild edema. NEUROLOGIC: She is alert and somewhat sedate otherwise alert and remembers me. She has lost her hair. LABORATORY DATA: Her white count is 3.1, hemoglobin of 9 and hematocrit 26. Liver function tests slightly elevated with an AST of 248, ALT is 101, alkaline phosphatase is 854. Pre-albumin is 7. Lactic acid is 1.8. She had a platelet count down to 12,000 earlier this month; presently it is 43 today. IMAGING STUDIES: She had a CT scan of her abdomen which showed swelling in the gallbladder and thickening in the gallbladder wall which resolved. She has is this widely metastatic disease that has not really shown a significant change from her previous scan that was done late last month. At that scan, she had a little bit of thickening in the gallbladder but again no stones. She has known liver metastasis that had been biopsied at the end of last year. ASSESSMENT A 71-year-old female with known widely metastatic breast cancer on palliative chemotherapy with some nausea and mild abdominal discomfort. She has an elevation of her liver enzymes. The radiology report has an enlarged lymph node near the harpreet hepatis. I do not know if this is causing some external compression of the common duct; it does not appear that way on the CT scan. The imaging of her gallbladder looks better than it did a month ago. PLAN: She is a high surgical risk. Will await GI evaluation, may benefit from evaluation of her common duct or this may be her disease process of metastatic disease causing these elevated liver enzymes. I will be following her along during the hospitalization. MD POOJA Oneill/SANCHO /2:16 PM /2:25 PM
--- NOTE | 2016-11-06 16:55 | MB ---
cc: TOSHIA LEON M.D. DATE OF CONSULTATION: 11/06/2016. REASON FOR CONSULTATION: Consult requested by the [facility] hospitalist for evaluation of metastatic breast cancer. HISTORY OF PRESENT ILLNESS: This is a 71-year-old very pleasant white female. She has a history of triple- negative right breast cancer in 2008. At the time of presentation, she had a stage IV disease with metastasis to infraclavicular lymph node. She had a T1 N3 M1 . Stage IV. There were thirteen axillary lymph nodes that were positive for metastatic disease. She underwent a right mastectomy followed by Taxol and Avastin through April of 2009. The Taxol was stopped and she was continued on Avastin through November of 2009. She also had received radiation therapy to right mastectomy site in June of 2009. In 2011, the patient was found to have recurrent breast cancer in the right neck area. She was treated with Abraxane for eight months completed in December of 2012. At that time she also had received radiation therapy to the neck area. The patient subsequently moved to [place] in May of 2015 and she was referred to me for further evaluation. The patient was kept on observation. However, in May of 2016 she was found to have new multiple pulmonary nodules, new mediastinal lymphadenopathy and new liver metastasis. This was confirmed with a PET scan. She had a liver biopsy which showed adenocarcinoma consistent with breast cancer, ER 10% positive, VT 0% positive HER2/soy antigen negative. She was treated with Abraxane times four cycles but she did not have any response. She had progressive disease. She was started on carboplatin and Gemzar in August of this year. The patient recently had a restaging CT scan which showed that her tumor is either stable or getting slightly better. The patient about four weeks ago developed right-sided abdominal pain. Her liver enzymes were found to be elevated. Acalculous cholecystitis was suspected and the patient was treated conservatively with antibiotics. I had referred the patient to Dr. Hays who recommended no surgery as she was a high surgical risk. Subsequently her liver enzymes have improved and her bilirubin came back completely normal. Chemotherapy was resumed recently. For the last ten days or so, the patient is not feeling well. She has been weak, tired and fatigued. No energy. Anorexia. Weight loss of around 10 pounds. She came to the emergency room with these symptoms. She underwent CT scan of the abdomen and pelvis which showed no significant change in liver metastasis. However, her liver enzymes are quite elevated. The patient is now admitted to the hospital and I have been asked to see her for further evaluation. The patient appears to be a little bit confused. Her calcium is high. She is complaining of weakness, tiredness, fatigue and she is complaining of some nausea. She is unable to eat for the last several days. She has a low grade fever. The rest of the review of systems is negative. PAST MEDICAL HISTORY: 1. Metastatic breast cancer diagnosed in 2008, stage IV. 2. Gastroesophageal reflux disease (GERD). 3. Hypercholesterolemia. 4. Hypothyroidism. 5. Irregular heart beat. 6. Osteoarthritis. 7. Peripheral neuropathy. 8. Coronary artery disease. 9. Diverticulosis. PAST SURGICAL HISTORY: 1. [id number] placement. 2. Colonoscopy. 3. Knee surgery. 4. Right mastectomy 2008. 5. Left rotator cuff surgery. 6. Hysterectomy. 7. Tubal ligation. 8. Tonsillectomy. ALLERGIES: 1. DOXAZOSIN. 2. LEVAQUIN. 3. PHENOBARBITAL. 4. SULFA. 5. DYAZIDE. MEDICATIONS: For medications, please see the electronic medical record. FAMILY HISTORY: The mother at the age. She had a history of hypertension and she from dementia. Her father from heart disease at age 56. She has one brother, no sisters and no sons. She has four daughters, all alive and well. SOCIAL HISTORY: The patient is . She never smoked cigarettes. Occasionally drinks alcohol. 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 PHYSICAL EXAMINATION:: GENERAL: On physical examination, she is a well-developed chronically ill-appearing white female who appears to be somewhat confused. VITAL SIGNS: Temperature 98.1, heart rate is 82, blood pressure of 153/84. HEAD, EYES, EARS, NOSE, THROAT: PERRLA, EOMI, anicteric. No oral lesions are noted. NECK: Neck is supple. LYMPHATIC: There is no cervical, supraclavicular or axillary lymphadenopathy noted. LUNGS: Lungs are clear. No wheezing, rhonchi or rales. HEART: Heart is regular rate and rhythm. ABDOMEN: Abdomen is soft. Tenderness noted in the right upper quadrant. EXTREMITIES: No pedal edema. NEUROLOGIC: Awake, alert, oriented times three. SKIN: No significant lesions are noted. NEUROLOGIC: Neurology awake, alert, oriented x2. ASSESSMENT: 1. Stage IV metastatic breast cancer triple-negative initially diagnosed in 2008 as stage IV. The patient has had multiple courses of treatment. Most recently she was on carboplatin and Gemzar about two weeks ago. 2. Pancytopenia due to recent chemotherapy. 3. Marked elevation of liver enzymes. I suspect that she has either acalculous cholecystitis or some bile duct etiology. Her liver enzymes shows an obstructive picture. 4. Extensive liver metastasis unchanged from the CT scan about a month ago. 5. Hypercalcemia most likely either from dehydration or known bone metastasis. PLAN: I have reviewed her available records and I have discussed with the patient regarding her condition. About a month ago, liver enzymes were found to be elevated with a bilirubin of 2.0. With the antibiotics her bilirubin came down to normal. Now her bilirubin has gone up to 3.2 and other liver enzymes also have gotten worse. The CT of the abdomen showed that she has stable liver metastasis. I suspect that either she has acalculous cholecystitis or some bile duct pathology. I will consult Dr. Hays for further evaluation. I have discussed the case with him over the phone and he agreed to see the patient later today. We also discussed that we will ask gastroenterology to see her for possible ERCP and stent placement given that she has obstructive jaundice. The patient is getting antibiotics for possible cholecystitis. Her calcium is elevated at 11.4. Three weeks ago the calcium was normal. She has mild confusion which I believe is due to the hypercalcemia. I will give her Aredia 90 mg IV. I will continue the hydration. The patient still has anorexia. She has an aversion to food which I suspect is most likely due to liver pathology. Further recommendations will be based on her hospital stay. Thank you for asking my opinion. MD BHAVANA Askew/SANCHO /4:01 PM /4:23 PM [place]
[2016-11-06] MEDS: MORPHINE SULFATE 4 MG/ML INJ IV PRN (18:45)
[2016-11-06] MEDS ORDERED: ATORVASTATIN 20 MG TAB PO SCH (21:00)
[2016-11-07] VITALS (9 sets, daily range): BP systolic 103–204; BP diastolic 64–102; PULSE 86–100; RESP 17–22; TEMP 95–97.6; O2SAT 94–98
[2016-11-07] MEDS ORDERED: cloNIDine HCL 0.1 MG TAB PO ONE (00:15)
[2016-11-07] MEDS: MORPHINE SULFATE 4 MG/ML INJ IV PRN (00:23)
[2016-11-07] MEDS: LEVOTHYROXINE SODIUM 75 MCG TAB PO SCH (05:50)
[2016-11-07] MEDS: ENALAPRILAT 1.25 MG/ML VIAL IV PUSH PRN (06:00)
[2016-11-07 07:29] LABS: AUTOMATED NEUTROPHIL # 1.6 TH/MM3 (1.8-7.7); BASOPHIL % 0.6 % (0.0-2.0); EOSINOPHIL % 1.2 % (0.0-4.0); HEMATOCRIT 26.4 % (35.0-46.0); LYMPH % 22.6 % (9.0-44.0); LYMPHOCYTE # 0.7 TH/MM3 (1.0-4.8); MEAN CELL VOLUME 96.1 FL (80.0-100.0); MEAN CORPUSCULAR HEMOGLOBIN 32.3 PG (27.0-34.0); MEAN CORPUSCULAR HGB CONC 33.6 % (32.0-36.0); MONO % 22.1 % (0.0-8.0); NEUT % 53.5 % (16.0-70.0); PLATELET COUNT 41 TH/MM3 (150-450); RED BLOOD COUNT 2.75 MIL/MM3 (4.00-5.30); RED CELL DISTRIBUTION WIDTH 28.1 % (11.6-17.2); WHITE BLOOD COUNT 3.1 TH/MM3 (4.0-11.0)
[2016-11-07 07:34] LABS: HEMO FLAGS AUTO DIFF
[2016-11-07 07:42] LABS: ALT (GPT) 109 U/L (10-53); ANION GAP 9 MEQ/L (5-15); AST (GOT) 269 U/L (15-37); BLOOD UREA NITROGEN 25 MG/DL (7-18); CHLORIDE 103 MEQ/L (98-107); GLOMERULAR FILTRATION RATE 66 ML/MIN (>89); SODIUM (NA) 136 MEQ/L (136-145)
[2016-11-07 07:54] LABS: ALKALINE PHOSPHATASE 905 U/L (45-117); TOTAL BILIRUBIN ADULT 5.3 MG/DL (0.2-1.0)
[2016-11-07] MEDS: SODIUM CHLORIDE 0.9% FLUSH 10 ML FLUSH IV FLUSH SCH ×2 (09:00→20:03)
[2016-11-07] MEDS: NYSTAT/DIPHENHY/LIDO MOUTHWASH (Adult) 120ML SWISH-SWAL SCH (09:00)
[2016-11-07] MEDS: VERAPAMIL HCL 120 MG SUSTAINED RELEASE TAB PO SCH (09:00)
--- NOTE | 2016-11-07 09:27 | RADRPT ---
EXAM DATE/TIME: 11/07/2016 08:43 [facility] COMPARISON: CT ABDOMEN & PELVIS W CONTRAST, November 06, 2016, 4:05. INDICATIONS : Abdominal pain. Right upper quadrant pain, distended gallbladder MEDICAL HISTORY : Metastatic, liver. Carcinoma, breast. SURGICAL HISTORY : Mastectomy, bilateral. Hysterectomy. ENCOUNTER: Initial ACUITY: 1 week PAIN SCORE: 4/10 LOCATION: Right upper quadrant TECHNIQUE: Multiplanar, multisequence magnetic resonance imaging of the abdomen was performed. High-resolution 3D dataset was utilized to reconstruct maximum-intensity projection (MIP) images. FINDINGS: Innumerable heterogeneous, T2 hyperintense masses are seen throughout the liver consistent with the h istory of metastatic disease. There is no intrahepatic or extrahepatic biliary ductal dilatation. Duenas creatic duct is normal in caliber. There is harpreet hepatic lymphadenopathy. Right renal cysts are pres ent as noted previously measuring up to 5.8 cm at the lower pole. There is mild splenomegaly at 14.3 cm in cephalocaudal tension. There is mild peripancreatic edema identified and the possibility of a p ancreatitis is not excluded. Small amount of perihepatic and perisplenic free fluid. There is a T2 hy perintense lesion within the spleen on image 18, nonspecific. Enlarged right adrenal gland again note d. CONCLUSION: Widespread liver metastases and indeterminate splenic lesion are noted. Right renal cysts. Peripancreatic edema is noted and the possibility of pancreatitis is not excluded. No evidence for biliary obstruction. Note is also made of bilateral pleural effusions and basilar ai rspace disease. Donell Estrella MD on November 07, 2016 at 9:22 Board Certified Radiologist. This report was verified electronically.
[2016-11-07] MEDS: PANTOPRAZOLE SOD 20 MG DELAYED RELEASE TAB PO SCH (09:33)
[2016-11-07] MEDS: METOPROLOL SUCCINATE 25 MG EXTENDED RELEASE TAB PO SCH (09:33)
[2016-11-07] MEDS: ISOSORBIDE MONONITRATE 30 MG TAB PO SCH (09:33)
[2016-11-07] MEDS: LACTOBACILLUS ACIDOPHILUS TAB PO SCH (09:33)
[2016-11-07] MEDS: ASPIRIN 81 MG CHEW TAB CHEW SCH (09:33)
--- NOTE | 2016-11-07 10:02 | PD.ONC.PN ---
Subjective Subjective Remarks Afebrile overnight. Patient confused. multiple family members at bedside. Per daughter she was moaning in pain this morning before the nurse gave her her pain medication. She wants to know if we can schedule her pain medications. Objective Data Date Time Temp Pulse Resp B/P Pulse Ox O2 Delivery O2 Flow Rate FiO2 11/07/16 05:00 97.1 100 22 138/81 96 11/07/16 01:51 19 11/07/16 01:17 171/84 Manual Cuff/Auscultation 11/07/16 00:01 204/102 Automatic Cuff 11/06/16 23:00 19 11/06/16 20:00 98.1 93 18 172/84 98 11/06/16 16:00 97.7 89 16 170/84 97 11/06/16 11:48 98.1 82 16 153/84 98 11/06/16 11:25 84 16 138/81 99 Nasal Cannula 2 11/06/16 09:56 98.0 84 16 140/83 99 Room Air Result Diagram: 11/07/16 0555 11/07/16 0555 Laboratory Results Laboratory Tests Test 11/06/16 11/07/16 09:40 05:55 White Blood Count 3.1 TH/MM3 3.1 TH/MM3 Red Blood Count 2.77 MIL/MM3 2.75 MIL/MM3 Hemoglobin 9.1 GM/DL 8.9 GM/DL Hematocrit 26.1 % 26.4 % Mean Corpuscular Volume 94.2 FL 96.1 FL Mean Corpuscular Hemoglobin 32.6 PG 32.3 PG Mean Corpuscular Hemoglobin 34.6 % 33.6 % Concent Red Cell Distribution Width 27.1 % 28.1 % Platelet Count 43 TH/MM3 41 TH/MM3 Mean Platelet Volume 10.3 FL 9.4 FL Neutrophils (%) (Auto) 56.1 % 53.5 % Lymphocytes (%) (Auto) 19.4 % 22.6 % Monocytes (%) (Auto) 22.7 % 22.1 % Eosinophils (%) (Auto) 1.1 % 1.2 % Basophils (%) (Auto) 0.7 % 0.6 % Neutrophils # (Auto) 1.8 TH/MM3 1.6 TH/MM3 Lymphocytes # (Auto) 0.6 TH/MM3 0.7 TH/MM3 Monocytes # (Auto) 0.7 TH/MM3 0.7 TH/MM3 Eosinophils # (Auto) 0.0 TH/MM3 0.0 TH/MM3 Basophils # (Auto) 0.0 TH/MM3 0.0 TH/MM3 CBC Comment AUTO DIFF AUTO DIFF Differential Comment AUTO DIFF CONFIRMED Platelet Estimate LOW Platelet Morphology Comment NORMAL Ovalocytes 1+ Keratocytes OCC Sodium Level 135 MEQ/L 136 MEQ/L Potassium Level 4.5 MEQ/L 4.0 MEQ/L Chloride Level 102 MEQ/L 103 MEQ/L Carbon Dioxide Level 26.7 MEQ/L 24.0 MEQ/L Anion Gap 6 MEQ/L 9 MEQ/L Blood Urea Nitrogen 29 MG/DL 25 MG/DL Creatinine 0.93 MG/DL 0.85 MG/DL Estimat Glomerular Filtration 60 ML/MIN 66 ML/MIN Rate Random Glucose 118 MG/DL 81 MG/DL Lactic Acid Level 1.8 mmol/L Calcium Level 10.2 MG/DL 10.1 MG/DL Total Bilirubin 2.6 MG/DL 5.3 MG/DL Aspartate Amino Transf 248 U/L 269 U/L (AST/SGOT) Alanine Aminotransferase 101 U/L 109 U/L (ALT/SGPT) Alkaline Phosphatase 854 U/L 905 U/L Total Protein 5.7 GM/DL 5.6 GM/DL Albumin 2.2 GM/DL 2.1 GM/DL Prealbumin 7 MG/DL Culture Results Microbiology Date/Time Procedure Status Source Growth 11/06/16 02:32 Aerobic Blood Culture Received Blood Peripheral Pending 11/06/16 02:32 Anaerobic Blood Culture Received Blood Peripheral Pending 11/06/16 02:37 Aerobic Blood Culture Received Blood Peripheral Pending 11/06/16 02:37 Anaerobic Blood Culture Received Blood Peripheral Pending Imaging Studies Last 24 hours Impressions Cholangiopancreatography MRI 11/07/16 0000 Signed Impressions: Service Date/Time: Monday, November 07, 2016 08:43 - CONCLUSION: Widespread liver metastases and indeterminate splenic lesion are noted. Right renal cysts. Peripancreatic edema is noted and the possibility of pancreatitis is not excluded. No evidence for biliary obstruction. Note is also made of bilateral pleural effusions and basilar airspace disease. Donell Estrella MD Administered Medications Medications (Trade) Dose Ordered Sig/Andrew Route PRN Reason Start Time Stop Time Status Last Admin Dose Admin Sodium Chloride (NS Flush) 2 ml BID IV FLUSH 11/06/16 09:00 11/06/16 08:18 Aspirin (Aspirin Chew) 162 mg DAILY CHEW 11/06/16 09:00 11/06/16 08:18 Atorvastatin Calcium (Lipitor) 20 mg HS PO 11/06/16 21:00 11/06/16 20:23 Isosorbide Mononitrate (Imdur) 30 mg DAILY PO 11/06/16 09:00 11/06/16 08:18 Lactobacillus Acidophilus (Lactinex) 1 tab DAILY PO 11/06/16 09:00 11/06/16 08:18 Levothyroxine Sodium (Synthroid) 75 mcg DAILY@06 PO 11/06/16 09:00 11/07/16 05:50 Metoprolol Succinate (Toprol Xl) 25 mg DAILY PO 11/06/16 09:00 11/06/16 08:17 Pantoprazole Sodium (Protonix) 20 mg DAILY PO 11/06/16 09:00 11/06/16 08:18 Verapamil HCl (Isoptin Sr) 120 mg DAILY PO 11/06/16 09:00 11/06/16 08:22 Ondansetron HCl (Zofran Inj) 4 mg Q6H PRN IVP NAUSEA OR VOMITING 11/06/16 07:30 11/06/16 16:55 Oxycodone HCl (Roxicodone) 10 mg Q4H PRN PO PAIN SCALE 6 TO 10 11/06/16 08:00 11/07/16 06:08 Morphine Sulfate (Morphine Inj) 4 mg Q3H PRN IV BREAKTHROUGH PAIN 11/06/16 07:30 11/07/16 00:23 Oxycodone HCl 5 mg 5 mg Q4H PRN PO PAIN SCALE 3 TO 5 11/06/16 07:30 11/06/16 21:33 Sodium Chloride (NS 1000 ml Inj) 1,000 ml @ 100 mls/hr Q10H IV 11/06/16 08:00 11/06/16 18:00 Multi-Ingredient Mouthwash/Gargle (Magic Mouthwash Adult Liq) 5 ml QID SWISH-SWAL 11/06/16 13:00 11/06/16 17:01 Enalaprilat (Vasotec Inj) 1.25 mg Q6H PRN IV PUSH SBP>180, DBP>95 11/07/16 00:15 11/07/16 06:00 Objective Remarks GENERAL: Elderly female, lethargic, lying in bed SKIN: Warm and dry. HEAD: Normocephalic. EYES: No injection or drainage. NECK: Supple, trachea midline. CARDIOVASCULAR: Regular rate and rhythm RESPIRATORY: Breath sounds equal bilaterally. No accessory muscle use. GASTROINTESTINAL: Abdomen soft, non-tender, nondistended. EXTREMITIES: No cyanosis NEUROLOGICAL: awake but lethargic. oriented to place, does not answer when I ask her name or the date and quickly falls back asleep. Assessment/Plan Problem List: (1) Metastatic breast cancer Status: Acute Plan: --last chemo was with Carboplatin and Gemzar 4 weeks ago. History: --2008: diagnosed with triple-negative right breast cancer. At the time of presentation, she had a stage IV disease with metastasis to infraclavicular lymph node. She had a T1 N3 M1 . Stage IV. There were thirteen axillary lymph nodes that were positive for metastatic disease. She underwent a right mastectomy followed by Taxol and Avastin through April of 2009. The Taxol was stopped and she was continued on Avastin through November of 2009. She also had received radiation therapy to right mastectomy site in June of 2009. --2011, found to have recurrent breast cancer in the right neck area. treated with Abraxane for eight months completed in December of 2012. At that time she also had received radiation therapy to the neck area. moved to [place] in May of 2015 and she was referred to Dr. Brownlee for further evaluation. The patient was kept on observation. --May of 2016--was found to have new multiple pulmonary nodules, new mediastinal lymphadenopathy and new liver metastasis. This was confirmed with a PET scan. She had a liver biopsy which showed adenocarcinoma consistent with breast cancer, ER 10% positive, W[place] 0% positive HER2/soy antigen negative. She was treated with Abraxane times four cycles but she did not have any response. She had progressive disease. --August 2015-- started on Carboplatin and Gemzar. The patient recently had a restaging CT scan which showed that her tumor is either stable or getting slightly better. --Four weeks ago-- developed right-sided abdominal pain. Her liver enzymes were found to be elevated. Acalculous cholecystitis was suspected and the patient was treated conservatively with antibiotics. I had referred the patient to Dr. Hays who recommended no surgery as she was a high surgical risk. Subsequently her liver enzymes have improved and her bilirubin came back completely normal. Chemotherapy was resumed recently. --Ten days ago-- the patient is not feeling well. She has been weak, tired and fatigued. No energy. Anorexia. Weight loss of around 10 pounds. She came to the emergency room with these symptoms. She underwent CT scan of the abdomen and pelvis which showed no significant change in liver metastasis. However, her liver enzymes are quite elevated. (2) Pancytopenia Status: Acute Plan: --due to recent chemotherapy. --transfuse as needed (3) Hypercalcemia Status: Acute Plan: --most likely either from dehydration or known bone metastasis. --s/p Aredia 90 mg IV, on 11/06/16 (4) Elevated LFTs Status: Acute Plan: --suspect that she has either acalculous cholecystitis or some bile duct etiology. Her liver enzymes shows an obstructive picture. --s/p MRCP this morning--shows no evidence of biliary obstruction. --GI following --Extensive liver metastasis unchanged from the CT scan about a month ago. --surgery following, but patient is a poor surgical candidate (5) Dehydration Status: Acute Plan: --on IVF --needs swallow evaluation --no vomiting, but not really eating either. --aversion to food-->?d/t liver pathology (6) Altered mental status Status: Acute Plan: --obtain MRI brain, ammonia level Assessment 71y/o female with metastatic breast cancer. h/o GERD, Hypercholesterolemia. Hypothyroidism. Irregular heart beat. Osteoarthritis. Peripheral neuropathy. Coronary artery disease. Diverticulosis. Attending Statement more confuse then yesterday severe pain RUQ last night. had morphine MRCP = no bile duct dilatation MRI brain = solitary brain mets. start Decadron. d/w pt and two daughters. Other two daughters are coming tomorrow. get CT chest and Bone scan, if shows progression then consult hospice for BSC. will follow. Diane Velarde Nov 07, 2016 10:02 Brandon Brownlee MD Nov 07, 2016 17:29
[2016-11-07 11:44] LABS: OVALOCYTES 1+ (NORMAL)
[2016-11-07 11:45] LABS: KERATOCYTES OCC (NORMAL); PLATELET ESTIMATE SMEAR LOW (NORMAL); PLATELET MORPHOLOGY NORMAL (NORMAL); SCAN/DIFF AUTO DIFF CONFIRMED
[2016-11-07] MEDS ORDERED: GADODIAMIDE PF 287 MG/ML 20 ML VIAL (for RAD MRI) IV ONE (12:54)
--- NOTE | 2016-11-07 13:22 | RADRPT ---
EXAM DATE/TIME: 11/07/2016 12:36 [facility] COMPARISON: CT BRAIN W CONTRAST, October 18, 2016, 23:25. INDICATIONS : Metastatic disease. CONTRAST: 20 cc Omniscan (gadodiamide) IV MEDICAL HISTORY : Carcinoma, breast. Metastatic, liver. SURGICAL HISTORY : Mastectomy, bilateral. Hysterectomy. ENCOUNTER: Initial ACUITY: 1 day PAIN SCORE: 0/10 LOCATION: cranial TECHNIQUE: Multiplanar, multisequence MRI of the brain was performed both prior to and following the administrat ion of paramagnetic contrast. FINDINGS: Diffusion weighted images demonstrate no evidence for acute infarction. Ventricles and cisterns are o f normal size and configuration. There scattered foci of increased flair signal in the cortical/subco rtical regions of the bilateral parietal, and occipital lobes. There is vasogenic edema in the right cerebellar hemisphere noted. Following administration of intravenous contrast, there is a solitary en hancing lesion in the right cerebellar hemisphere a 9.6 mm. No additional areas of abnormal enhanceme nt are identified. CONCLUSION: 1. Solitary enhancing mass right cerebellar hemisphere with a small amount of surrounding vasogenic e kristan characteristic of metastatic disease to the brain. 2. No definite additional foci of abnormal enhancement are seen, however there is abnormal increased flair and T2 signal involving the bilateral occipital and parietal cortical/subcortical regions. This is nonspecific but can be seen with posterior reversible encephalopathy syndrome. Donell Estrella MD on November 07, 2016 at 13:16 Board Certified Radiologist. This report was verified electronically.
[2016-11-07] MEDS: LACTULOSE SYRUP 20 GM/30 ML CUP PO SCH ×3 (14:03→21:33)
--- NOTE | 2016-11-07 16:49 | HHI.PR ---
Subjective Remarks Patient seen this morning around 10:30. Somnolent, wakes up for exam. Daughters at bedside. They report that mother has been confused , has not changed since last night. Daughter is concerned that mother is in pain, has been requesting pain meds due to moaning, however daughters agree that patient does groan sometimes even if she is not in pain. He stated she typically will deny pain even if she isn' t pain, and they want her to be comfortable what her to wake up as well.. Per discussion with both daughters, We will try to limit pain meds administer only if patient asks or indicates that she has pain. later discussed with oncology, who agree with the plan. Discussed MRI results which show metastatic brain cancer. They will discuss further with family this afternoon. Objective Vital Signs Date Time Temp Pulse Resp B/P Pulse Ox O2 Delivery O2 Flow Rate FiO2 11/07/16 13:57 95.0 88 20 103/64 98 11/07/16 10:00 97.6 95 20 126/68 96 11/07/16 05:00 97.1 100 22 138/81 96 11/07/16 01:51 19 11/07/16 01:17 171/84 Manual Cuff/Auscultation 11/07/16 00:01 204/102 Automatic Cuff 11/06/16 23:00 19 11/06/16 20:00 98.1 93 18 172/84 98 I/O 11/06/16 11/06/16 11/06/16 11/07/16 11/07/16 11/07/16 07:00 15:00 23:00 07:00 15:00 23:00 Intake Total 540 ml 687 ml 827 ml Balance 540 ml 687 ml 827 ml Intake Oral 540 ml IV Total 687 ml 827 ml # Voids 3 1 # Bowel Movements 0 Result Diagram: 11/07/16 0555 11/07/16 0555 Objective Remarks GENERAL: patient sitting up in bed. Appears somewhat, wakes up briefly, appears to deny pain. Moves all extremities SKIN: Warm and dry. HEAD: Normocephalic. EYES: No scleral icterus. No injection or drainage. NECK: Supple, trachea midline. No JVD CARDIOVASCULAR: Regular rate and rhythm without murmurs, gallops, or rubs. RESPIRATORY: Breath sounds equal bilaterally. No accessory muscle use. GASTROINTESTINAL: Abdomen soft, non-tender, nondistended. MUSCULOSKELETAL: No cyanosis, or edema. BACK: Nontender without obvious deformity. No CVA tenderness. A/P Assessment and Plan 71-year-old female with history of metastatic breast cancer on palliative chemotherapy, HTN, HLD, GERD, osteoarthritis, CAD, presents with a one-week history of generalized weakness, weight loss, and right upper quadrant abdominal pain. //Generalized Weakness: suspect multifactorial with metastatic breast cancer, abdominal pain, decreased oral intake. Lactic Acid 2.4. Blood cultures collected. UA negative. S/p IV Zosyn in the ED. -Give IVF. -Monitor labs and blood cultures -Consult PT. //Metastatic Breast Cancer: undergoing palliative chemotherapy with oncologist Dr. Brownlee -MRI 11/07 with brain metastasis as above. Multiple liver metastases on MRCP -Appreciate hematology assistance. -Careful with pain medications due to somnolence/confusion. Discussed with family. //pancytopenia. -secondary to cancer/chemotherapy. no signs of acute bleeding. No fevers. Plan as per hematology/oncology. //Encephalopathy. Multifactorial. Pain medications, metastatic breast cancer based on MRI this admission. Also with transaminitis, elevated bilirubin. Ammonia only mildly elevated. Per discussion with both daughters, will limit pain medications at this time. //Transaminitis with RUQ Abdominal Pain, Weight Loss, Dysphagia: suspect secondary to hepatic metastatic disease vs subacute cholecystitis. CT Abd/ Pelvis images reviewed, showed widespread hepatic metastatic disease; lesions not significantly changed but the liver is slightly larger in the interim and there is now small ascites; low density lesions of the spleen are unchanged; right adrenal lesion is not significantly changed; No obstruction or acute inflammatory changes are seen; Pathologic-appearing harpreet hepatis lymphadenopathy again noted. Liver enzymes trending up now, T. bili 0.7 --> 3.2 , AST 125 --> 264, ALT 59 --> 115, Alk Phos 506 --> 973 -recently evaluated by surgeon Dr. Hays who recommended observation for now with liver enzymes trending down, however now liver enzymes trending up -supportive treatment with IVF, antiemetics, pain control prn. -Oncology and GI following MRCP with multiple liver metastases. Splenic lesion as well. No obvious biliary obstruction indicated. -Continue supportive care. Discussed with hematology on 11/07. Hematology will discuss with patient's family //Oropharyngeal Candidiasis: patient with some white oropharyngeal patches on exam, suspect contributing to dysphagia -Continue on Magic Mouthwash qid. Avoid systemic therapy due to liver disease. //Hypercalcemia: Calcium 11.4 on admission, increased from 8.9 on 10/18/16. Suspect secondary to dehydration, decreased oral intake. -Improved with IV fluid. Continue IV fluids. //Hypertension: chronic, stable -continue patient's metoprolol and verapamil -held patient's losartan/HCTZ for now with elevated BUN and recent decreased po intake -monitor BP, adjust antihypertensives as needed //Hyperlipidemia: chronic, stable -continue patient's statin //Hypothyroidism: chronic, stable -continue patient's levothyroxine //CAD: chronic, stable -continue patient's aspirin, imdur, BB DVT Prophylaxis: teds/SCDs Discharge Planning metastatic breast cancer to brain and lung. Oncology will discuss palliative care. Malcom Berger MD Nov 07, 2016 16:49
[2016-11-07] MEDS: DEXAMETHASONE SOD PHOS 4 MG/ML VIAL IV PUSH SCH ×2 (17:54→23:45)
[2016-11-07] MEDS ORDERED: DEXAMETHASONE SOD PHOS 4 MG/ML VIAL IV PUSH SCH (21:00)
[2016-11-07] MEDS: TEMAZEPAM 15 MG CAP PO PRN (21:40)
--- NOTE | 2016-11-07 23:26 | HHI.GIFU ---
Subjective Remarks Confused and somewhat restless in bed but does not appear to be in any acute distress daughter at bedside Objective Vitals I&O Vital Signs Date Time Temp Pulse Resp B/P Pulse Ox O2 Delivery O2 Flow Rate FiO2 11/07/16 20:00 97.1 89 17 143/83 94 11/07/16 16:00 96.8 86 18 121/91 98 11/07/16 13:57 95.0 88 20 103/64 98 11/07/16 10:00 97.6 95 20 126/68 96 11/07/16 05:00 97.1 100 22 138/81 96 11/07/16 01:51 19 11/07/16 01:17 171/84 Manual Cuff/Auscultation 11/07/16 00:01 204/102 Automatic Cuff I/O 11/06/16 11/06/16 11/06/16 11/07/16 11/07/16 11/07/16 07:00 15:00 23:00 07:00 15:00 23:00 Intake Total 540 ml 687 ml 827 ml 240 ml Balance 540 ml 687 ml 827 ml 240 ml Intake Oral 540 ml 240 ml IV Total 687 ml 827 ml # Voids 3 1 3 1 # Bowel Movements 0 1 Laboratory Laboratory Tests Test 11/07/16 11/07/16 05:55 14:30 White Blood Count 3.1 Red Blood Count 2.75 Hemoglobin 8.9 Hematocrit 26.4 Mean Corpuscular Volume 96.1 Mean Corpuscular Hemoglobin 32.3 Mean Corpuscular Hemoglobin 33.6 Concent Red Cell Distribution Width 28.1 Platelet Count 41 Mean Platelet Volume 9.4 Neutrophils (%) (Auto) 53.5 Lymphocytes (%) (Auto) 22.6 Monocytes (%) (Auto) 22.1 Eosinophils (%) (Auto) 1.2 Basophils (%) (Auto) 0.6 Neutrophils # (Auto) 1.6 Lymphocytes # (Auto) 0.7 Monocytes # (Auto) 0.7 Eosinophils # (Auto) 0.0 Basophils # (Auto) 0.0 CBC Comment AUTO DIFF Differential Comment AUTO DIFF CONFIRMED Platelet Estimate LOW Platelet Morphology Comment NORMAL Ovalocytes 1+ Keratocytes OCC Sodium Level 136 Potassium Level 4.0 Chloride Level 103 Carbon Dioxide Level 24.0 Anion Gap 9 Blood Urea Nitrogen 25 Creatinine 0.85 Estimat Glomerular Filtration 66 Rate Random Glucose 81 Calcium Level 10.1 Total Bilirubin 5.3 Aspartate Amino Transf 269 (AST/SGOT) Alanine Aminotransferase 109 (ALT/SGPT) Alkaline Phosphatase 905 Total Protein 5.6 Albumin 2.1 Ammonia 35 Date/Time Procedure Status Source Growth 11/06/16 02:37 Aerobic Blood Culture - Preliminary Resulted Blood Peripheral NO GROWTH IN 1 DAY 11/06/16 02:37 Anaerobic Blood Culture - Preliminary Resulted Blood Peripheral NO GROWTH IN 1 DAY Imaging Last 48 hours Impressions Cholangiopancreatography MRI 11/07/16 0000 Signed Impressions: Service Date/Time: Monday, November 07, 2016 08:43 - CONCLUSION: Widespread liver metastases and indeterminate splenic lesion are noted. Right renal cysts. Peripancreatic edema is noted and the possibility of pancreatitis is not excluded. No evidence for biliary obstruction. Note is also made of bilateral pleural effusions and basilar airspace disease. Donell Estrella MD Brain MRI 11/07/16 0000 Signed Impressions: Service Date/Time: Monday, November 07, 2016 12:36 - CONCLUSION: 1. Solitary enhancing mass right cerebellar hemisphere with a small amount of surrounding vasogenic edema characteristic of metastatic disease to the brain. 2. No definite additional foci of abnormal enhancement are seen, however there is abnormal increased flair and T2 signal involving the bilateral occipital and parietal cortical/subcortical regions. This is nonspecific but can be seen with posterior reversible encephalopathy syndrome. Donell Estrella MD Abdomen/Pelvis CT 11/06/16 0000 Signed Impressions: Service Date/Time: Sunday, November 06, 2016 04:05 - CONCLUSION: 1. Widespread hepatic metastatic disease. The lesions are not significantly changed but the liver is slightly larger in the interim and there is now small ascites. 2. The low density lesions of the spleen are unchanged. 3. The right adrenal lesion is not significantly changed. 4. No obstruction or acute inflammatory changes are seen. 5. Pathologic-appearing harpreet hepatis lymphadenopathy again noted. There are upper limits of normal retroperitoneal lymph nodes. 6. Unchanged sclerotic area right side of the L5 vertebral body, nonspecific but not significantly changed and quite possibly degenerative. No other focal bone lesion is demonstrated. 7. Small effusion and subcarinal as well as left hilar lymphadenopathy partly seen of the lower chest. Haider Topete MD Physical Exam HEENT: normocephalic; jaundice. Throat is clear. NECK: Neck is supple. CHEST: Chest is clear to auscultation and percussion. CARDIAC: Regular rate and rhythm with no murmur gallop or rubs. ABDOMEN: Soft, nondistended, nontender; no hepatosplenomegaly; bowel sounds are present in all four quadrants. EXTREMITIES: No clubbing, cyanosis, or edema. SKIN: Normal; no rash; jaundice. RN CLINICAL DOCUMENTATION SPECIALIST: Confused. Assessment and Plan Plan ASSESSMENT: - Right upper quadrant pain, nausea. CT scan of the abdomen and pelvis (11/06/16 )----> 1. Widespread hepatic metastatic disease. The lesions are not significantly changed but the liver is slightly larger in the interim and there is now small ascites. 2. The low density lesions of the spleen are unchanged. 3. The right adrenal lesion is not significantly changed. 4. No obstruction or acute inflammatory changes are seen. 5. Pathologic-appearing harpreet hepatis lymphadenopathy again noted. There are upper limits of normal retroperitoneal lymph nodes. 6. Unchanged sclerotic area right side of the L5 vertebral body, nonspecific but not significantly changed and quite possibly degenerative. No other focal bone lesion is demonstrated. 7. Small effusion and subcarinal as well as left hilar lymphadenopathy partly seen of the lower chest. LFTs elevated with T. Bili 2.6, AST 248, ALT 101, Alk Phosph 854. She was recently seen in the ER for right upper quadrant pain and this was attributed to cholecystitis based on distended, wall thickening of the GB. She was seen by Dr. Hays, who recommended observation since her liver enzymes and pain had improved and almost resolved when he saw the patient. Of note, her gb appears normal on the most recent ct exam. ? related to metastatic disease. - Elevated LFTs. CT as above. The patient reports she is not aware of any metastatic disease to the liver, but according to records, Dr. Brownlee noted that she had a PET scan (05/22/16) which revealed uptake in multiple pulmonary nodules left lung, left hilum, and mediastinum, and multiple liver masses, extensive bone mets, L2, L4, S1, Sacral ala, left proximal femur. There was also a liver biopsy with revealed adenocarcinoma consistent with breast mets. She has had elevated LFTs since July of this year. ? related to metastatic disease. - Anemia. 9.08/06.1. - Metastatic breast cancer. On palliative chemotherapy with Dr. Brownlee. Looking at the records, she has metastatic breast cancer and is on Palliative chemotherapy with carboplatin and Gemzar. She cannot tell me when she last had this. Prior to this, she had right mastectomy, taxol and avastin, radiation and abraxane and radiation in 2012 for recurrence to the right neck. PLAN: -Bilirubin appears to be arising etiology unclear possibly secondary to metastases to the liver but certainly obstruction is something that we can still consider -Repeat labs tomorrow and based on that make a decision regarding possible ERCP -Case discussed with Dr. Brownlee tomorrow we'll reevaluate tumor burden in the chest if it shows excessive burden then patient will be going to hospice otherwise we may still consider pursuing further interventions such as the EGD and ERCP as seen fit or necessary - Avoid hepatotoxic meds - Suspect that her pain and elevated LFTs are related to metastatic disease to the liver, Favio Whyte MD Nov 07, 2016 23:26
[2016-11-07] MEDS: SODIUM CHLOR 0.9% 1000 ML INJ 1,000 ML IV SCH (23:45)
[2016-11-08] VITALS: BP 150/73; PULSE 84; RESP 16; TEMP 96.3; O2SAT 93
[2016-11-08] MEDS: traMADol HCL 50 MG TAB PO PRN ×2 (02:06→23:57)
[2016-11-08 06:00] VITALS: BP 169/84; PULSE 94; RESP 18; TEMP 97.7; O2SAT 95
[2016-11-08] MEDS: DEXAMETHASONE SOD PHOS 4 MG/ML VIAL IV PUSH SCH ×4 (06:22→23:56)
[2016-11-08] MEDS: LEVOTHYROXINE SODIUM 75 MCG TAB PO SCH (06:22)
[2016-11-08 08:14] LABS: AUTOMATED NEUTROPHIL # 1.6 TH/MM3 (1.8-7.7); BASOPHIL % 0.1 % (0.0-2.0); EOSINOPHIL % 0.1 % (0.0-4.0); HEMATOCRIT 25.8 % (35.0-46.0); LYMPH % 15.2 % (9.0-44.0); LYMPHOCYTE # 0.3 TH/MM3 (1.0-4.8); MEAN CELL VOLUME 97.2 FL (80.0-100.0); MEAN CORPUSCULAR HEMOGLOBIN 31.4 PG (27.0-34.0); MEAN CORPUSCULAR HGB CONC 32.3 % (32.0-36.0); MONO % 12.8 % (0.0-8.0); NEUT % 71.8 % (16.0-70.0); PLATELET COUNT 48 TH/MM3 (150-450); RED BLOOD COUNT 2.66 MIL/MM3 (4.00-5.30); RED CELL DISTRIBUTION WIDTH 27.5 % (11.6-17.2); WHITE BLOOD COUNT 2.2 TH/MM3 (4.0-11.0)
[2016-11-08 08:21] LABS: INTERNATIONAL NORMALIZED RATIO 1.2 RATIO; PROTHROMBIN TIME - PATIENT 13.5 SEC (9.8-11.6)
[2016-11-08 08:42] LABS: HEMO FLAGS AUTO DIFF
[2016-11-08] MEDS ORDERED: IOHEXOL 350 MG/ML 10 ML VIAL (for RAD DIAG) IV ONE (08:45)
[2016-11-08 09:00] VITALS: BP 178/85; PULSE 87; RESP 18; TEMP 95.9; O2SAT 95
[2016-11-08] MEDS: LACTOBACILLUS ACIDOPHILUS TAB PO SCH (09:00)
[2016-11-08] MEDS: LACTULOSE SYRUP 20 GM/30 ML CUP PO SCH (09:00)
[2016-11-08] MEDS: PANTOPRAZOLE SOD 20 MG DELAYED RELEASE TAB PO SCH (09:00)
--- NOTE | 2016-11-08 09:09 | RADRPT ---
EXAM DATE/TIME: 11/08/2016 08:41 [facility] COMPARISON: [place] Imageing chest CT 10/13/2016 INDICATIONS : Evaluate lung metastatic lesions. IV CONTRAST: 60 cc Omnipaque 350 (iohexol) IV RADIATION DOSE: 13.10 CTDIvol (mGy) MEDICAL HISTORY : Carcinoma, breast. SURGICAL HISTORY : Mastectomy, right. ENCOUNTER: Initial ACUITY: 1 day PAIN SCALE: 4/10 LOCATION: Bilateral chest TECHNIQUE: Volumetric scanning of the chest was performed. Using automated exposure control and adjustment of t he mA and/or kV according to patient size, radiation dose was kept as low as reasonably achievable to obtain optimal diagnostic quality images. FINDINGS: LUNGS: Atelectasis of the lung bases left greater than right, increased from the prior outside study of [place] imaging of 10/13/2016. 6 mm nodular density in the left lower lung on image #42 is unchanged. O void density seen on the prior study in the posterior medial inferior left lower lobe is no longer di scretely seen. There is more prominent atelectasis in this region. PLEURA: Very small bilateral pleural effusions, new. MEDIASTINUM: Subcarinal lymph node measures 1.5 x 3.1 cm, unchanged. Left hilar lymph node unchanged measuring 1.8 x 1.5 cm. No new enlarged lymph nodes identified. AXILLAE: Within normal limits. No lymphadenopathy. SKELETAL: Within normal limits for patient age. MISCELLANEOUS: Multiple masses are again identified in the liver. Index lesion in the central liver on image #49 is unchanged measuring 5.0 cm CONCLUSION: 1. Increased atelectasis at the medial left lung base. Atelectasis is in the region of previously yg ntified nodular density. The nodular density in this region is no longer identified. 2. 6 mm nodular density more centrally in the left lower lobe is unchanged. 3. New very small bilateral pleural effusions. 4. Subcarinal and left hilar enlarged lymph nodes unchanged. 5. Multiple hepatic masses unchanged. Kenji Mendoza MD on November 08, 2016 at 8:53 Board Certified Radiologist. This report was verified electronically.
[2016-11-08 09:22] LABS: BICARBONATE 20.5 MEQ/L (21.0-32.0); INDIRECT BILIRUBIN 1.1 MG/DL (0.0-0.8); MAGNESIUM 1.6 MG/DL (1.5-2.5); POTASSIUM 3.9 MEQ/L (3.5-5.1); TOTAL BILIRUBIN ADULT 6.3 MG/DL (0.2-1.0)
[2016-11-08] MEDS: METOPROLOL SUCCINATE 25 MG EXTENDED RELEASE TAB PO SCH (09:29)
[2016-11-08] MEDS: VERAPAMIL HCL 120 MG SUSTAINED RELEASE TAB PO SCH (09:29)
[2016-11-08] MEDS: ASPIRIN 81 MG CHEW TAB CHEW SCH (09:29)
[2016-11-08] MEDS: ISOSORBIDE MONONITRATE 30 MG TAB PO SCH (09:30)
[2016-11-08] MEDS: SODIUM CHLORIDE 0.9% FLUSH 10 ML FLUSH IV FLUSH SCH ×2 (09:31→19:41)
[2016-11-08] MEDS: SODIUM CHLOR 0.9% 1000 ML INJ 1,000 ML IV SCH ×2 (10:44→19:40)
--- NOTE | 2016-11-08 12:19 | PD.ONC.PN ---
Subjective Subjective Remarks Afebrile overnight. patient more alert today, but remains confused. 3 daughters at bedside. She denies pain anywhere. Objective Data Date Time Temp Pulse Resp B/P Pulse Ox O2 Delivery O2 Flow Rate FiO2 11/08/16 09:00 95.9 87 18 178/85 95 11/08/16 06:00 97.7 94 18 169/84 95 11/08/16 03:00 19 11/08/16 00:00 96.3 84 16 150/73 93 11/07/16 23:15 95 21 11/07/16 20:00 97.1 89 17 143/83 94 11/07/16 16:00 96.8 86 18 121/91 98 11/07/16 13:57 95.0 88 20 103/64 98 Result Diagram: 11/08/1628 11/08/16627 Laboratory Results Laboratory Tests Test 11/07/16 11/08/16 14:30 06:28 Ammonia 35 MCMOL/L White Blood Count 2.2 TH/MM3 Red Blood Count 2.66 MIL/MM3 Hemoglobin 8.3 GM/DL Hematocrit 25.8 % Mean Corpuscular Volume 97.2 FL Mean Corpuscular Hemoglobin 31.4 PG Mean Corpuscular Hemoglobin 32.3 % Concent Red Cell Distribution Width 27.5 % Platelet Count 48 TH/MM3 Mean Platelet Volume 10.3 FL Neutrophils (%) (Auto) 71.8 % Lymphocytes (%) (Auto) 15.2 % Monocytes (%) (Auto) 12.8 % Eosinophils (%) (Auto) 0.1 % Basophils (%) (Auto) 0.1 % Neutrophils # (Auto) 1.6 TH/MM3 Lymphocytes # (Auto) 0.3 TH/MM3 Monocytes # (Auto) 0.3 TH/MM3 Eosinophils # (Auto) 0.0 TH/MM3 Basophils # (Auto) 0.0 TH/MM3 CBC Comment AUTO DIFF Prothrombin Time 13.5 SEC Prothromb Time International 1.2 RATIO Ratio Sodium Level 134 MEQ/L Potassium Level 3.9 MEQ/L Chloride Level 103 MEQ/L Carbon Dioxide Level 20.5 MEQ/L Anion Gap 11 MEQ/L Blood Urea Nitrogen 32 MG/DL Creatinine 1.01 MG/DL Estimat Glomerular Filtration 54 ML/MIN Rate Random Glucose 113 MG/DL Calcium Level 9.1 MG/DL Phosphorus Level 3.4 MG/DL Magnesium Level 1.6 MG/DL Total Bilirubin 6.3 MG/DL Direct Bilirubin 5.2 MG/DL Indirect Bilirubin 1.1 MG/DL Aspartate Amino Transf 236 U/L (AST/SGOT) Alanine Aminotransferase 102 U/L (ALT/SGPT) Alkaline Phosphatase 924 U/L Total Protein 5.5 GM/DL Albumin 2.1 GM/DL Culture Results Microbiology Date/Time Procedure Status Source Growth 11/06/16 02:32 Aerobic Blood Culture - Preliminary Resulted Blood Peripheral NO GROWTH IN 2 DAYS 11/06/16 02:32 Anaerobic Blood Culture - Preliminary Resulted Blood Peripheral NO GROWTH IN 2 DAYS 11/06/16 02:37 Aerobic Blood Culture - Preliminary Resulted Blood Peripheral NO GROWTH IN 2 DAYS 11/06/16 02:37 Anaerobic Blood Culture - Preliminary Resulted Blood Peripheral NO GROWTH IN 2 DAYS Administered Medications Medications (Trade) Dose Ordered Sig/Andrew Route PRN Reason Start Time Stop Time Status Last Admin Dose Admin Sodium Chloride (NS Flush) 2 ml BID IV FLUSH 11/06/16 09:00 11/08/16 09:31 Aspirin (Aspirin Chew) 162 mg DAILY CHEW 11/06/16 09:00 11/08/16 09:29 Isosorbide Mononitrate (Imdur) 30 mg DAILY PO 11/06/16 09:00 11/08/16 09:30 Lactobacillus Acidophilus (Lactinex) 1 tab DAILY PO 11/06/16 09:00 11/08/16 09:00 Levothyroxine Sodium (Synthroid) 75 mcg DAILY@06 PO 11/06/16 09:00 11/08/16 06:22 Metoprolol Succinate (Toprol Xl) 25 mg DAILY PO 11/06/16 09:00 11/08/16 09:29 Temazepam (Restoril) 15 mg HS PRN PO INSOMNIA 11/06/16 07:30 11/07/16 21:40 Pantoprazole Sodium (Protonix) 20 mg DAILY PO 11/06/16 09:00 11/07/16 09:33 Verapamil HCl (Isoptin Sr) 120 mg DAILY PO 11/06/16 09:00 11/08/16 09:29 Ondansetron HCl (Zofran Inj) 4 mg Q6H PRN IVP NAUSEA OR VOMITING 11/06/16 07:30 11/06/16 16:55 Morphine Sulfate 4 mg 4 mg Q3H PRN IV BREAKTHROUGH PAIN 11/06/16 07:30 11/07/16 00:23 Sodium Chloride (NS 1000 ml Inj) 1,000 ml @ 100 mls/hr Q10H IV 11/06/16 08:00 11/08/16 10:44 Multi-Ingredient Mouthwash/Gargle (Magic Mouthwash Adult Liq) 5 ml QID SWISH-SWAL 11/06/16 13:00 Hold 11/07/16 09:00 Enalaprilat (Vasotec Inj) 1.25 mg Q6H PRN IV PUSH SBP>180, DBP>95 11/07/16 00:15 11/07/16 06:00 Lactulose (Lactulose Liq) 30 ml QID PO 11/07/16 13:00 11/07/16 21:33 Tramadol HCl (Ultram) 50 mg Q8H PRN PO PAIN SCALE 1 TO 10 11/07/16 17:00 11/08/16 02:06 Dexamethasone Sodium Phosphate (Decadron Inj) 4 mg Q6HR IV PUSH 11/07/16 18:00 11/08/16 10:46 Objective Remarks GENERAL: Elderly female, sitting up in bed SKIN: Warm and dry. HEAD: Normocephalic. EYES: No injection or drainage. NECK: Supple, trachea midline. CARDIOVASCULAR: Regular rate and rhythm RESPIRATORY: Breath sounds equal bilaterally. No accessory muscle use. GASTROINTESTINAL: Abdomen soft, non-tender, nondistended. EXTREMITIES: No cyanosis NEUROLOGICAL: awake. normal speech. moving all extremities. confused. delayed speech. Assessment/Plan Problem List: (1) Metastatic breast cancer Status: Acute Plan: 11/08: CT thorax shows unchanged 6mm nodular density and atelectasis. bone scan pending. d/w daughters results of CT thorax at bedside. discussed GI possibly attempting ERCP. questions answered. emotional support provided --last chemo was with Carboplatin and Gemzar 4 weeks ago. History: --2008: diagnosed with triple-negative right breast cancer. At the time of presentation, she had a stage IV disease with metastasis to infraclavicular lymph node. She had a T1 N3 M1 . Stage IV. There were thirteen axillary lymph nodes that were positive for metastatic disease. She underwent a right mastectomy followed by Taxol and Avastin through April of 2009. The Taxol was stopped and she was continued on Avastin through November of 2009. She also had received radiation therapy to right mastectomy site in June of 2009. --2011, found to have recurrent breast cancer in the right neck area. treated with Abraxane for eight months completed in December of 2012. At that time she also had received radiation therapy to the neck area. moved to [place] in May of 2015 and she was referred to Dr. Brownlee for further evaluation. The patient was kept on observation. --May of 2016--was found to have new multiple pulmonary nodules, new mediastinal lymphadenopathy and new liver metastasis. This was confirmed with a PET scan. She had a liver biopsy which showed adenocarcinoma consistent with breast cancer, ER 10% positive, NC 0% positive HER2/soy antigen negative. She was treated with Abraxane times four cycles but she did not have any response. She had progressive disease. --August 2015-- started on Carboplatin and Gemzar. The patient recently had a restaging CT scan which showed that her tumor is either stable or getting slightly better. --Four weeks ago-- developed right-sided abdominal pain. Her liver enzymes were found to be elevated. Acalculous cholecystitis was suspected and the patient was treated conservatively with antibiotics. I had referred the patient to Dr. Hays who recommended no surgery as she was a high surgical risk. Subsequently her liver enzymes have improved and her bilirubin came back completely normal. Chemotherapy was resumed recently. --Ten days ago-- the patient is not feeling well. She has been weak, tired and fatigued. No energy. Anorexia. Weight loss of around 10 pounds. She came to the emergency room with these symptoms. She underwent CT scan of the abdomen and pelvis which showed no significant change in liver metastasis. However, her liver enzymes are quite elevated. (2) Pancytopenia Status: Acute Plan: --due to recent chemotherapy. --transfuse as needed (3) Hypercalcemia Status: Acute Plan: --most likely either from dehydration or known bone metastasis. --s/p Aredia 90 mg IV, on 11/06/16 (4) Elevated LFTs Status: Acute Plan: --suspect that she has either acalculous cholecystitis or some bile duct etiology. Her liver enzymes shows an obstructive picture. --s/p MRCP--shows no evidence of biliary obstruction. --GI following--may do ERCP Wednesday --Extensive liver metastasis unchanged from the CT scan about a month ago. --surgery following, but patient is a poor surgical candidate (5) Dehydration Status: Acute Plan: --on IVF --no vomiting, but not really eating either. --aversion to food-->?d/t liver pathology (6) Altered mental status Status: Acute Plan: --11/08: improved today --likely multifactorial d/t brain mets, hepatorenal failure, elevated ammonia, anorexia MRI brain showed brain met. --Ammonia elevated, on lactulose (7) Renal insufficiency Status: Acute Plan: --?hepatorenal syndrome Assessment 71y/o female with metastatic breast cancer. h/o GERD, Hypercholesterolemia. Hypothyroidism. Irregular heart beat. Osteoarthritis. Peripheral neuropathy. Coronary artery disease. Diverticulosis. Attending Statement More awake and alert. C/o dark urine and light colored stool All 4 daughters at bedside. C/O pain RUQ , had tramadol last night only. CT chest = no Progression. Bone scan tomorrow. D/W pt and family about ERCP. DR Thakkar walks in . We both have discuss the risks and benefits of ERCP with possible stent. They have agreed. The exam, history, and the medical decision-making described in the above note were completed with the assistance of the mid-level provider. I reviewed and agree with the findings presented. I attest that I had a [id number] encounter with the patient on the same day, and personally performed and documented my assessment and findings in the medical record. Diane Velarde Nov 08, 2016 12:19 Brandon Brownlee MD Nov 08, 2016 22:49
--- NOTE | 2016-11-08 13:06 | HHI.GIFU ---
Subjective Remarks 71 yo female resting in bed in no apparent distress. Daughters at bedside. Patient requesting to stop lactulose or decrease frequency. (Dunia Orr) Objective Vitals I&O Vital Signs Date Time Temp Pulse Resp B/P Pulse Ox O2 Delivery O2 Flow Rate FiO2 11/08/16 09:00 95.9 87 18 178/85 95 11/08/16 06:00 97.7 94 18 169/84 95 11/08/16 03:00 19 11/08/16 00:00 96.3 84 16 150/73 93 11/07/16 23:15 95 21 11/07/16 20:00 97.1 89 17 143/83 94 11/07/16 16:00 96.8 86 18 121/91 98 11/07/16 13:57 95.0 88 20 103/64 98 I/O 11/07/16 11/07/16 11/07/16 11/08/16 11/08/16 11/08/16 07:00 15:00 23:00 07:00 15:00 23:00 Intake Total 827 ml 240 ml 2367 ml Balance 827 ml 240 ml 2367 ml Intake Oral 240 ml 480 ml IV Total 827 ml 1887 ml # Voids 1 3 1 3 # Bowel Movements 1 5 Laboratory Laboratory Tests Test 11/07/16 11/08/16 14:30 06:28 Ammonia 35 White Blood Count 2.2 Red Blood Count 2.66 Hemoglobin 8.3 Hematocrit 25.8 Mean Corpuscular Volume 97.2 Mean Corpuscular Hemoglobin 31.4 Mean Corpuscular Hemoglobin 32.3 Concent Red Cell Distribution Width 27.5 Platelet Count 48 Mean Platelet Volume 10.3 Neutrophils (%) (Auto) 71.8 Lymphocytes (%) (Auto) 15.2 Monocytes (%) (Auto) 12.8 Eosinophils (%) (Auto) 0.1 Basophils (%) (Auto) 0.1 Neutrophils # (Auto) 1.6 Lymphocytes # (Auto) 0.3 Monocytes # (Auto) 0.3 Eosinophils # (Auto) 0.0 Basophils # (Auto) 0.0 CBC Comment AUTO DIFF Prothrombin Time 13.5 Prothromb Time International 1.2 Ratio Sodium Level 134 Potassium Level 3.9 Chloride Level 103 Carbon Dioxide Level 20.5 Anion Gap 11 Blood Urea Nitrogen 32 Creatinine 1.01 Estimat Glomerular Filtration 54 Rate Random Glucose 113 Calcium Level 9.1 Phosphorus Level 3.4 Magnesium Level 1.6 Total Bilirubin 6.3 Direct Bilirubin 5.2 Indirect Bilirubin 1.1 Aspartate Amino Transf 236 (AST/SGOT) Alanine Aminotransferase 102 (ALT/SGPT) Alkaline Phosphatase 924 Total Protein 5.5 Albumin 2.1 Date/Time Procedure Status Source Growth 11/06/16 02:37 Aerobic Blood Culture - Preliminary Resulted Blood Peripheral NO GROWTH IN 2 DAYS 11/06/16 02:37 Anaerobic Blood Culture - Preliminary Resulted Blood Peripheral NO GROWTH IN 2 DAYS Imaging Last Impressions Cholangiopancreatography MRI 11/07/16 0000 Signed Impressions: Service Date/Time: Monday, November 07, 2016 08:43 - CONCLUSION: Widespread liver metastases and indeterminate splenic lesion are noted. Right renal cysts. Peripancreatic edema is noted and the possibility of pancreatitis is not excluded. No evidence for biliary obstruction. Note is also made of bilateral pleural effusions and basilar airspace disease. Donell Estrella MD Chest CT 11/07/16 0000 Signed Impressions: Service Date/Time: Tuesday, November 08, 2016 08:41 - CONCLUSION: 1. Increased atelectasis at the medial left lung base. Atelectasis is in the region of previously identified nodular density. The nodular density in this region is no longer identified. 2. 6 mm nodular density more centrally in the left lower lobe is unchanged. 3. New very small bilateral pleural effusions. 4. Subcarinal and left hilar enlarged lymph nodes unchanged. 5. Multiple hepatic masses unchanged. Kenji Mendoza MD Brain MRI 11/07/16 0000 Signed Impressions: Service Date/Time: Monday, November 07, 2016 12:36 - CONCLUSION: 1. Solitary enhancing mass right cerebellar hemisphere with a small amount of surrounding vasogenic edema characteristic of metastatic disease to the brain. 2. No definite additional foci of abnormal enhancement are seen, however there is abnormal increased flair and T2 signal involving the bilateral occipital and parietal cortical/subcortical regions. This is nonspecific but can be seen with posterior reversible encephalopathy syndrome. Donell Estrella MD Abdomen/Pelvis CT 11/06/16 0000 Signed Impressions: Service Date/Time: Sunday, November 06, 2016 04:05 - CONCLUSION: 1. Widespread hepatic metastatic disease. The lesions are not significantly changed but the liver is slightly larger in the interim and there is now small ascites. 2. The low density lesions of the spleen are unchanged. 3. The right adrenal lesion is not significantly changed. 4. No obstruction or acute inflammatory changes are seen. 5. Pathologic-appearing harpreet hepatis lymphadenopathy again noted. There are upper limits of normal retroperitoneal lymph nodes. 6. Unchanged sclerotic area right side of the L5 vertebral body, nonspecific but not significantly changed and quite possibly degenerative. No other focal bone lesion is demonstrated. 7. Small effusion and subcarinal as well as left hilar lymphadenopathy partly seen of the lower chest. Haider Topete MD Physical Exam HEENT: PERRLA. normocephalic; jaundice. Throat is clear. NECK: Neck is supple. CHEST: CTA CARDIAC: RRR ABDOMEN: Obese,soft, nondistended, nontender; no hepatosplenomegaly; bowel sounds are present x 4. EXTREMITIES: No clubbing, cyanosis, or edema. SKIN: Normal; no rash; jaundice. [employer]: Alert today, responding to questions. (Dunia Orr) Assessment and Plan Plan ASSESSMENT: - Right upper quadrant pain, nausea. CT scan of the abdomen and pelvis (11/06/16 )----> 1. Widespread hepatic metastatic disease. The lesions are not significantly changed but the liver is slightly larger in the interim and there is now small ascites. 2. The low density lesions of the spleen are unchanged. 3. The right adrenal lesion is not significantly changed. 4. No obstruction or acute inflammatory changes are seen. 5. Pathologic-appearing harpreet hepatis lymphadenopathy again noted. There are upper limits of normal retroperitoneal lymph nodes. 6. Unchanged sclerotic area right side of the L5 vertebral body, nonspecific but not significantly changed and quite possibly degenerative. No other focal bone lesion is demonstrated. 7. Small effusion and subcarinal as well as left hilar lymphadenopathy partly seen of the lower chest. Chest CT 11/07/16--1. Increased atelectasis at the medial left lung base. Atelectasis is in the region of previously identified nodular density. The nodular density in this region is no longer identified. 2. 6 mm nodular density more centrally in the left lower lobe is unchanged. 3. New very small bilateral pleural effusions. 4. Subcarinal and left hilar enlarged lymph nodes unchanged. 5. Multiple hepatic masses unchanged. Cholangiopancreatography MRI 11/07/16--Widespread liver metastases and indeterminate splenic lesion are noted. Right renal cysts. Peripancreatic edema is noted and the possibility of pancreatitis is not excluded. No evidence for biliary obstruction. Note is also made of bilateral pleural effusions and basilar airspace disease LFTs elevated. Today T. Bili 6.3, AST 236, ALT 102, Alk Phosph 924. She was recently seen in the ER for right upper quadrant pain and this was attributed to cholecystitis based on distended, wall thickening of the GB. She was seen by Dr. Hays, who recommended observation since her liver enzymes and pain had improved and almost resolved when he saw the patient. Of note, her gb appears normal on the most recent ct exam. ? related to metastatic disease. - Elevated LFTs. CT as above. The patient reports she is not aware of any metastatic disease to the liver, but according to records, Dr. Brownlee noted that she had a PET scan (05/22/16) which revealed uptake in multiple pulmonary nodules left lung, left hilum, and mediastinum, and multiple liver masses, extensive bone mets, L2, L4, S1, Sacral ala, left proximal femur. There was also a liver biopsy with revealed adenocarcinoma consistent with breast mets. She has had elevated LFTs since July of this year. ? related to metastatic disease. - Anemia. . - Metastatic breast cancer. On palliative chemotherapy with Dr. Brownlee. Looking at the records, she has metastatic breast cancer and is on Palliative chemotherapy with carboplatin and Gemzar. She cannot tell me when she last had this. Prior to this, she had right mastectomy, taxol and avastin, radiation and abraxane and radiation in 2012 for recurrence to the right neck. PLAN: - Bilirubin continues to increase, etiology unclear, secondary to metastases to liver? obstruction? Consider possible ERCP - Case discussed with Dr. Brownlee, going to check tumor burden of chest - Hospice consult considered - Avoid hepatotoxic meds - Pain and elevated LFTs are most likely related to metastatic disease to the liver - Further recommendations to follow based on results of above Patient seen and examined by Dr. Whyte and myself and this note is written on his behalf. (Dunia Orr) Physician Comments Patient seen and examined Agree with above Continue with current supportive care Monitor labs Based on our discussion with Dr. Brownlee yesterday if the chest CT did not show any extra tumor burden we would probably continue with current treatment and at this point in time the tumor burden in the chest appears to be stable and as such I would recommend pursuing an EGD and an ERCP to rule out the possibility of obstruction as a potential cause for rising bilirubin (Favio Whyte MD) Dunia Orr Nov 08, 2016 13:06 Favio Whyte MD Nov 08, 2016 14:36
--- NOTE | 2016-11-08 13:25 | HHI.PR ---
Subjective Subjective Notes Patient sleepy, daughters in room She had many medical questions that I deferred to Dr. Brownlee Objective Vitals/I&O Vital Signs Date Time Temp Pulse Resp B/P Pulse Ox O2 Delivery O2 Flow Rate FiO2 11/08/16 09:00 95.9 87 18 178/85 95 11/07/16 23:15 21 11/06/16 11:25 Nasal Cannula 2 Labs Laboratory Tests Test 11/07/16 11/08/16 14:30 06:28 Ammonia 35 White Blood Count 2.2 Red Blood Count 2.66 Hemoglobin 8.3 Hematocrit 25.8 Mean Corpuscular Volume 97.2 Mean Corpuscular Hemoglobin 31.4 Mean Corpuscular Hemoglobin 32.3 Concent Red Cell Distribution Width 27.5 Platelet Count 48 Mean Platelet Volume 10.3 Neutrophils (%) (Auto) 71.8 Lymphocytes (%) (Auto) 15.2 Monocytes (%) (Auto) 12.8 Eosinophils (%) (Auto) 0.1 Basophils (%) (Auto) 0.1 Neutrophils # (Auto) 1.6 Lymphocytes # (Auto) 0.3 Monocytes # (Auto) 0.3 Eosinophils # (Auto) 0.0 Basophils # (Auto) 0.0 CBC Comment AUTO DIFF Prothrombin Time 13.5 Prothromb Time International 1.2 Ratio Sodium Level 134 Potassium Level 3.9 Chloride Level 103 Carbon Dioxide Level 20.5 Anion Gap 11 Blood Urea Nitrogen 32 Creatinine 1.01 Estimat Glomerular Filtration 54 Rate Random Glucose 113 Calcium Level 9.1 Phosphorus Level 3.4 Magnesium Level 1.6 Total Bilirubin 6.3 Direct Bilirubin 5.2 Indirect Bilirubin 1.1 Aspartate Amino Transf 236 (AST/SGOT) Alanine Aminotransferase 102 (ALT/SGPT) Alkaline Phosphatase 924 Total Protein 5.5 Albumin 2.1 Date/Time Procedure Status Source Growth 11/06/16 02:37 Aerobic Blood Culture - Preliminary Resulted Blood Peripheral NO GROWTH IN 2 DAYS 11/06/16 02:37 Anaerobic Blood Culture - Preliminary Resulted Blood Peripheral NO GROWTH IN 2 DAYS Lungs: Clear Abdomen: Other (Less tender, according to patient) A/P Assessment and Plan Breast cancer, with mets to liver. Discussed with patient and daughter; goal is comfort measures. No surgery indicated at this time. Will see as needed. Kiko Bueno MD Nov 08, 2016 13:25
[2016-11-08 14:42] LABS: ACANTHOCYTES OCC (NORMAL); OVALOCYTES 1+ (NORMAL)
[2016-11-08 14:43] LABS: PLATELET ESTIMATE SMEAR LOW (NORMAL); PLATELET MORPHOLOGY NORMAL (NORMAL); SCAN/DIFF AUTO DIFF CONFIRMED
[2016-11-08] MEDS: ONDANSETRON HCL 4 MG/2 ML VIAL IVP PRN (15:55)
[2016-11-08 17:12] VITALS: O2SAT 96
[2016-11-08 18:11] VITALS: BP 118/72; PULSE 86; RESP 18; TEMP 96.7; O2SAT 96
[2016-11-08 20:00] VITALS: BP 143/85; PULSE 86; RESP 19; TEMP 96; O2SAT 96
[2016-11-08] MEDS: TEMAZEPAM 15 MG CAP PO PRN (21:46)
--- NOTE | 2016-11-08 23:46 | HHI.PR ---
Subjective Remarks patient seen this morning around 11 AM. She is much more alert today. She denies any pain. Daughters at bedside. Awaiting imaging studies Objective Vital Signs Date Time Temp Pulse Resp B/P Pulse Ox O2 Delivery O2 Flow Rate FiO2 11/08/16 20:00 96.0 86 19 143/85 96 11/08/16 18:11 96.7 86 18 118/72 96 11/08/16 17:12 21.0 11/08/16 09:00 95.9 87 18 178/85 95 11/08/16 06:00 97.7 94 18 169/84 95 11/08/16 03:00 19 11/08/16 00:00 96.3 84 16 150/73 93 I/O 11/07/16 11/07/16 11/07/16 11/08/16 11/08/16 11/08/16 07:00 15:00 23:00 07:00 15:00 23:00 Intake Total 827 ml 240 ml 2367 ml 240 ml 1170 ml Balance 827 ml 240 ml 2367 ml 240 ml 1170 ml Intake Oral 240 ml 480 ml 240 ml IV Total 827 ml 1887 ml 1170 ml # Voids 1 3 1 3 4 2 # Bowel Movements 1 5 1 Result Diagram: 11/08/1662711/08/16627 Objective Remarks GENERAL: patient sitting up in bed. sitting up in bed. Appears comfortable. talking more today. SKIN: Warm and dry. HEAD: Normocephalic. EYES: No scleral icterus. No injection or drainage. NECK: Supple, trachea midline. No JVD CARDIOVASCULAR: Regular rate and rhythm without murmurs, gallops, or rubs. RESPIRATORY: Breath sounds equal bilaterally. No accessory muscle use. GASTROINTESTINAL: Abdomen soft, non-tender, nondistended. MUSCULOSKELETAL: No cyanosis, or edema. BACK: Nontender without obvious deformity. No CVA tenderness. A/P Assessment and Plan 71-year-old female with history of metastatic breast cancer on palliative chemotherapy, HTN, HLD, GERD, osteoarthritis, CAD, presents with a one-week history of generalized weakness, weight loss, and right upper quadrant abdominal pain. //Generalized Weakness: suspect multifactorial with metastatic breast cancer, abdominal pain, decreased oral intake. Lactic Acid 2.4. Blood cultures collected. UA negative. S/p IV Zosyn in the ED. -Give IVF. -Monitor labs and blood cultures -appreciatePT. //Metastatic Breast Cancer: undergoing palliative chemotherapy with oncologist Dr. Brownlee -MRI 11/07 with brain metastasis as above. Multiple liver metastases on MRCP for -Appreciate hematology assistance. -Careful with pain medications due to somnolence/confusion. Discussed with family. -further workup and possible treatment per oncology. Appreciate assistance. //pancytopenia. -secondary to cancer/chemotherapy. no signs of acute bleeding. No fevers. Plan as per hematology/oncology. //Encephalopathy. Multifactorial. Pain medications, metastatic breast cancer based on MRI this admission. Also with transaminitis, elevated bilirubin. Ammonia only mildly elevated. Per discussion with both daughters, will limit pain medications at this time. //Transaminitis with RUQ Abdominal Pain, Weight Loss, Dysphagia: suspect secondary to hepatic metastatic disease vs subacute cholecystitis. CT Abd/ Pelvis images reviewed, showed widespread hepatic metastatic disease; lesions not significantly changed but the liver is slightly larger in the interim and there is now small ascites; low density lesions of the spleen are unchanged; right adrenal lesion is not significantly changed; No obstruction or acute inflammatory changes are seen; Pathologic-appearing harpreet hepatis lymphadenopathy again noted. Liver enzymes trending up now, T. bili 0.7 --> 3.2 , AST 125 --> 264, ALT 59 --> 115, Alk Phos 506 --> 973 -recently evaluated by surgeon Dr. Hays who recommended observation for now with liver enzymes trending down, however now liver enzymes trending up -supportive treatment with IVF, antiemetics, pain control prn. -Oncology and GI following MRCP with multiple liver metastases. Splenic lesion as well. No obvious biliary obstruction indicated. -further imaging planned per oncology. Appreciate assistance. //Oropharyngeal Candidiasis: patient with some white oropharyngeal patches on exam, suspect contributing to dysphagia -Continue on Magic Mouthwash qid. Avoid systemic therapy due to liver disease. //Hypercalcemia: Calcium 11.4 on admission, increased from 8.9 on 10/18/16. Suspect secondary to dehydration, decreased oral intake. -Improved with IV fluid. Continue IV fluids. //Hypertension: chronic, stable -continue patient's metoprolol and verapamil -held patient's losartan/HCTZ for now with elevated BUN and recent decreased po intake -monitor BP, adjust antihypertensives as needed //Hyperlipidemia: chronic, stable -continue patient's statin //Hypothyroidism: chronic, stable -continue patient's levothyroxine //CAD: chronic, stable -continue patient's aspirin, imdur, BB DVT Prophylaxis: teds/SCDs Discharge Planning metastatic breast cancer to brain and lung. further workup per oncology. Malcom Berger MD Nov 08, 2016 23:46 Malcom Berger MD Nov 08, 2016 23:46
[2016-11-08] MEDS: SODIUM CHLORIDE 0.9% FLUSH 10 ML FLUSH IV FLUSH PRN (23:59)
[2016-11-09] VITALS (7 sets, daily range): BP systolic 124–191; BP diastolic 80–99; PULSE 88–92; RESP 17–18; TEMP 96–96.9; O2SAT 94–98
[2016-11-09] MEDS: SODIUM CHLORIDE 0.9% FLUSH 10 ML FLUSH IV FLUSH PRN (04:10)
[2016-11-09] MEDS: SODIUM CHLOR 0.9% 1000 ML INJ 1,000 ML IV SCH ×3 (05:35→22:45)
[2016-11-09] MEDS: LEVOTHYROXINE SODIUM 75 MCG TAB PO SCH (05:35)
[2016-11-09] MEDS: DEXAMETHASONE SOD PHOS 4 MG/ML VIAL IV PUSH SCH ×3 (05:38→18:37)
[2016-11-09 05:58] LABS: BASOPHIL % 0.2 % (0.0-2.0); HEMATOCRIT 24.8 % (35.0-46.0); LYMPHOCYTE # 0.4 TH/MM3 (1.0-4.8); MEAN CELL VOLUME 96.2 FL (80.0-100.0); MEAN CORPUSCULAR HEMOGLOBIN 32.4 PG (27.0-34.0); MEAN CORPUSCULAR HGB CONC 33.7 % (32.0-36.0); MONO % 14.4 % (0.0-8.0); NEUT % 72.4 % (16.0-70.0); PLATELET COUNT 55 TH/MM3 (150-450); RED BLOOD COUNT 2.58 MIL/MM3 (4.00-5.30); RED CELL DISTRIBUTION WIDTH 28.1 % (11.6-17.2); WHITE BLOOD COUNT 2.8 TH/MM3 (4.0-11.0)
[2016-11-09 06:02] LABS: HEMO FLAGS AUTO DIFF
[2016-11-09 06:22] LABS: BICARBONATE 21.9 MEQ/L (21.0-32.0); MAGNESIUM 1.7 MG/DL (1.5-2.5)
[2016-11-09 07:07] LABS: ACANTHOCYTES OCC (NORMAL); PLATELET ESTIMATE SMEAR LOW (NORMAL)
[2016-11-09 07:08] LABS: PLATELET MORPHOLOGY NORMAL (NORMAL); SCAN/DIFF AUTO DIFF CONFIRMED
[2016-11-09 08:35] LABS: INDIRECT BILIRUBIN 1.1 MG/DL (0.0-0.8); TOTAL BILIRUBIN ADULT 5.9 MG/DL (0.2-1.0)
[2016-11-09] MEDS: ISOSORBIDE MONONITRATE 30 MG TAB PO SCH (08:49)
[2016-11-09] MEDS: METOPROLOL SUCCINATE 25 MG EXTENDED RELEASE TAB PO SCH (08:49)
[2016-11-09] MEDS: SODIUM CHLORIDE 0.9% FLUSH 10 ML FLUSH IV FLUSH SCH ×2 (08:51→20:21)
[2016-11-09] MEDS: ASPIRIN 81 MG CHEW TAB CHEW SCH (09:00)
[2016-11-09] MEDS: ONDANSETRON HCL 4 MG/2 ML VIAL IVP PRN (10:51)
--- NOTE | 2016-11-09 11:44 | PD.ONC.PN ---
Subjective Subjective Remarks Afebrile overnight. Patient much more alert today. All four of her daughters are at the bedside. She had some abdominal pain last night, which improved after she took a tramadol. She is going for ERCP today as well as bone scan. Objective Data Date Time Temp Pulse Resp B/P Pulse Ox O2 Delivery O2 Flow Rate FiO2 11/09/16 08:27 96.1 91 18 127/80 96 11/09/16 08:19 96 21 11/09/16 05:00 96.3 92 17 164/91 95 11/09/16 00:10 96.0 89 18 166/86 96 11/08/16 20:00 96.0 86 19 143/85 96 11/08/16 18:11 96.7 86 18 118/72 96 11/08/16 17:12 21.0 Result Diagram: 11/09/16 0410 11/09/16 0410 Laboratory Results Laboratory Tests Test 11/09/16 04:10 White Blood Count 2.8 TH/MM3 Red Blood Count 2.58 MIL/MM3 Hemoglobin 8.4 GM/DL Hematocrit 24.8 % Mean Corpuscular Volume 96.2 FL Mean Corpuscular Hemoglobin 32.4 PG Mean Corpuscular Hemoglobin 33.7 % Concent Red Cell Distribution Width 28.1 % Platelet Count 55 TH/MM3 Mean Platelet Volume 9.6 FL Neutrophils (%) (Auto) 72.4 % Lymphocytes (%) (Auto) 13.0 % Monocytes (%) (Auto) 14.4 % Eosinophils (%) (Auto) 0.0 % Basophils (%) (Auto) 0.2 % Neutrophils # (Auto) 2.0 TH/MM3 Lymphocytes # (Auto) 0.4 TH/MM3 Monocytes # (Auto) 0.4 TH/MM3 Eosinophils # (Auto) 0.0 TH/MM3 Basophils # (Auto) 0.0 TH/MM3 CBC Comment AUTO DIFF Differential Comment AUTO DIFF CONFIRMED Platelet Estimate LOW Platelet Morphology Comment NORMAL Acanthocytes OCC Sodium Level 138 MEQ/L Potassium Level 4.0 MEQ/L Chloride Level 106 MEQ/L Carbon Dioxide Level 21.9 MEQ/L Anion Gap 10 MEQ/L Blood Urea Nitrogen 33 MG/DL Creatinine 0.97 MG/DL Estimat Glomerular Filtration 57 ML/MIN Rate Random Glucose 148 MG/DL Calcium Level 8.8 MG/DL Phosphorus Level 2.7 MG/DL Magnesium Level 1.7 MG/DL Total Bilirubin 5.9 MG/DL Direct Bilirubin 4.8 MG/DL Indirect Bilirubin 1.1 MG/DL Aspartate Amino Transf 225 U/L (AST/SGOT) Alanine Aminotransferase 103 U/L (ALT/SGPT) Alkaline Phosphatase 871 U/L Total Protein 5.0 GM/DL Albumin 2.0 GM/DL Administered Medications Medications (Trade) Dose Ordered Sig/Andrew Route PRN Reason Start Time Stop Time Status Last Admin Dose Admin Sodium Chloride (NS Flush) 2 ml UNSCH PRN IV FLUSH FLUSH AFTER USING IV ACCESS 11/06/16 05:15 11/09/16 04:10 Sodium Chloride (NS Flush) 2 ml BID IV FLUSH 11/06/16 09:00 11/08/16 09:31 Aspirin (Aspirin Chew) 162 mg DAILY CHEW 11/06/16 09:00 11/08/16 09:29 Isosorbide Mononitrate (Imdur) 30 mg DAILY PO 11/06/16 09:00 11/09/16 08:49 Lactobacillus Acidophilus (Lactinex) 1 tab DAILY PO 11/06/16 09:00 11/08/16 09:00 Levothyroxine Sodium (Synthroid) 75 mcg DAILY@06 PO 11/06/16 09:00 11/09/16 05:35 Metoprolol Succinate (Toprol Xl) 25 mg DAILY PO 11/06/16 09:00 11/09/16 08:49 Temazepam (Restoril) 15 mg HS PRN PO INSOMNIA 11/06/16 07:30 11/08/16 21:46 Pantoprazole Sodium (Protonix) 20 mg DAILY PO 11/06/16 09:00 11/07/16 09:33 Verapamil HCl (Isoptin Sr) 120 mg DAILY PO 11/06/16 09:00 11/08/16 09:29 Ondansetron HCl (Zofran Inj) 4 mg Q6H PRN IVP NAUSEA OR VOMITING 11/06/16 07:30 11/09/16 10:51 Morphine Sulfate 4 mg 4 mg Q3H PRN IV BREAKTHROUGH PAIN 11/06/16 07:30 11/07/16 00:23 Sodium Chloride (NS 1000 ml Inj) 1,000 ml @ 100 mls/hr Q10H IV 11/06/16 08:00 11/09/16 05:35 Multi-Ingredient Mouthwash/Gargle (Magic Mouthwash Adult Liq) 5 ml QID SWISH-SWAL 11/06/16 13:00 Hold 11/07/16 09:00 Enalaprilat (Vasotec Inj) 1.25 mg Q6H PRN IV PUSH SBP>180, DBP>95 11/07/16 00:15 11/07/16 06:00 Lactulose (Lactulose Liq) 30 ml QID PO 11/07/16 13:00 Hold 11/07/16 21:33 Tramadol HCl (Ultram) 50 mg Q8H PRN PO PAIN SCALE 1 TO 10 11/07/16 17:00 11/08/16 23:57 Dexamethasone Sodium Phosphate (Decadron Inj) 4 mg Q6HR IV PUSH 11/07/16 18:00 11/09/16 11:00 Objective Remarks GENERAL: Elderly female, sitting up in chair, surrounded by family. jovial atmosphere in room. SKIN: Warm and dry. HEAD: Normocephalic. EYES: No injection or drainage. NECK: Supple, trachea midline. CARDIOVASCULAR: Regular rate and rhythm RESPIRATORY: Breath sounds equal bilaterally. No accessory muscle use. GASTROINTESTINAL: Abdomen soft, non-tender, nondistended. EXTREMITIES: No cyanosis NEUROLOGICAL: awake and alert, normal speech. moving extremities. Assessment/Plan Problem List: (1) Metastatic breast cancer Status: Acute Plan: 11/09: ERCP and bone scan today. If they are able to place stent and reduce her bilirubin, we may be able to give additional chemotherapy. this was discussed with daughters and patient. --last chemo was with Carboplatin and Gemzar 4 weeks ago. History: --2008: diagnosed with triple-negative right breast cancer. At the time of presentation, she had a stage IV disease with metastasis to infraclavicular lymph node. She had a T1 N3 M1 . Stage IV. There were thirteen axillary lymph nodes that were positive for metastatic disease. She underwent a right mastectomy followed by Taxol and Avastin through April of 2009. The Taxol was stopped and she was continued on Avastin through November of 2009. She also had received radiation therapy to right mastectomy site in June of 2009. --2011, found to have recurrent breast cancer in the right neck area. treated with Abraxane for eight months completed in December of 2012. At that time she also had received radiation therapy to the neck area. moved to [place] in May of 2015 and she was referred to Dr. Brownlee for further evaluation. The patient was kept on observation. --May of 2016--was found to have new multiple pulmonary nodules, new mediastinal lymphadenopathy and new liver metastasis. This was confirmed with a PET scan. She had a liver biopsy which showed adenocarcinoma consistent with breast cancer, ER 10% positive, CO 0% positive HER2/soy antigen negative. She was treated with Abraxane times four cycles but she did not have any response. She had progressive disease. --August 2015-- started on Carboplatin and Gemzar. The patient recently had a restaging CT scan which showed that her tumor is either stable or getting slightly better. --Four weeks ago-- developed right-sided abdominal pain. Her liver enzymes were found to be elevated. Acalculous cholecystitis was suspected and the patient was treated conservatively with antibiotics. I had referred the patient to Dr. Hays who recommended no surgery as she was a high surgical risk. Subsequently her liver enzymes have improved and her bilirubin came back completely normal. Chemotherapy was resumed recently. --Ten days ago-- the patient is not feeling well. She has been weak, tired and fatigued. No energy. Anorexia. Weight loss of around 10 pounds. She came to the emergency room with these symptoms. She underwent CT scan of the abdomen and pelvis which showed no significant change in liver metastasis. However, her liver enzymes are quite elevated. (2) Pancytopenia Status: Acute Plan: --due to recent chemotherapy. --transfuse as needed (3) Elevated LFTs Status: Acute Plan: --suspect that she has either acalculous cholecystitis or some bile duct etiology. Her liver enzymes shows an obstructive picture. --s/p MRCP--shows no evidence of biliary obstruction. --GI following--may do ERCP Wednesday --Extensive liver metastasis unchanged from the CT scan about a month ago. --surgery following, but patient is a poor surgical candidate (4) Dehydration Status: Acute Plan: --on IVF --no vomiting, but not really eating either. --aversion to food-->?d/t liver pathology (5) Altered mental status Status: Acute Plan: --likely multifactorial d/t brain mets, hepatorenal failure, elevated ammonia, anorexia MRI brain showed brain met. --Ammonia elevated, on lactulose Assessment 71y/o female with metastatic breast cancer. h/o GERD, Hypercholesterolemia. Hypothyroidism. Irregular heart beat. Osteoarthritis. Peripheral neuropathy. Coronary artery disease. Diverticulosis. Attending Statement just came back from ERCP. d/w DR Amador ERCP findings. s/p stent. Monitor LFTs. If no improvement then consult hospice. Bone scan shows no progression. D/W family. The exam, history, and the medical decision-making described in the above note were completed with the assistance of the mid-level provider. I reviewed and agree with the findings presented. I attest that I had a [id number] encounter with the patient on the same day, and personally performed and documented my assessment and findings in the medical record. Diane Velarde November 09, 2016 11:44 Brandon Brownlee MD November 09, 2016 19:27
[2016-11-09] MEDS ORDERED: PHYTONADIONE 5 MG TAB PO ONE (12:00)
[2016-11-09] MEDS ORDERED: ONDANSETRON HCL 4 MG/2 ML VIAL IV PUSH ONE (12:00)
[2016-11-09] MEDS ORDERED: SINCALIDE 5 MCG/5 ML VIAL IV ONE ×2 (12:00→16:10)
[2016-11-09] MEDS: ENALAPRILAT 1.25 MG/ML VIAL IV PUSH PRN (12:15)
[2016-11-09] MEDS ORDERED: PROPOFOL 200 MG/20 ML AMP IV ONE (15:48)
[2016-11-09] MEDS ORDERED: IOHEXOL 350 MG/ML 100 ML BTL (for RAD DIAG) OTHER ONE (16:05)
--- NOTE | 2016-11-09 16:27 | RADRPT ---
EXAM DATE/TIME: 11/09/2016 12:31 [facility] COMPARISON: CT ABDOMEN & PELVIS W CONTRAST, November 06, 2016, 4:05. PRIOR BONE SCANS: No correlative bone scan available for comparison. INDICATIONS : Metastatic disease. DOSE: 30.1 mCi Tc99m MDP IV MEDICAL HISTORY : Metastatic, breast. Metastatic, liver. Hypertension. SURGICAL HISTORY : Tubal ligation. Mastectomy, right. ENCOUNTER: Initial ACUITY: 2 days PAIN SCALE: 4/10 LOCATION: Bilateral anterior Abdomen TECHNIQUE: Three hours post intravenous administration of radiotracer, whole body bone scan imaging was performe d. FINDINGS: There are areas of focally increased radiotracer uptake involving the right L4 vertebral body and the right S1 level correlating with mixed density primarily sclerotic target lesions noted on CT examina tion. The foci are worrisome for metastatic disease. There is additionally a focus of asymmetric incr eased uptake in the midshaft region of the right tibia also worrisome for metastatic disease. Moderat e uptake in the knees is felt probably degenerative. CONCLUSION: Concerning areas of increased tracer uptake corresponding to suspicious bony lesions in L4 vertebral body and the sacrum. Uptake in the midshaft of the right tibia also concerning. Haider Conley MD on November 09, 2016 at 16:11 Board Certified Radiologist. This report was verified electronically.
--- NOTE | 2016-11-09 16:41 | GIPROC ---
[facility] [address] [facility]. [facility], [address] ERCP PROCEDURE REPORT EXAM DATE: 11/09/2016 PATIENT NAME: Tuyet Amin MR #: [id number] BIRTHDATE: 1945 ATTENDING: Cody Amador MD ORDER #: [id number] [employer] APPARATUS INSPECTOR: Hugo Holcomb and Gypsy Matias STATUS: inpatient INDICATIONS: The patient is a 71 yr old female here for an ERCP due to abdominal pain of suspected biliary origin, abnormal abdominal CT, and abnormal liver function test PROCEDURE PERFORMED: ERCP with stent placement MEDICATIONS: Per Anesthesia and None. CONSENT: The patient understands the risks and benefits of the procedure and understands that these risks include, but are not limited to: sedation, allergic reaction, infection, perforation and/or bleeding. Alternative means of evaluation and treatment include, among others: physical exam, x-rays, and/or surgical intervention. The patient elects to proceed with this endoscopic procedure. medical equipment was checked for proper function. Hand hygiene and appropriate measures for infection prevention was taken. After the risks, benefits and alternatives of the procedure were thoroughly explained, Informed was verified, confirmed and timeout was successfully executed by the treatment team. With the patient in left semi-prone position, medications were administered intravenously.The Pentax [id number] was passed from the mouth into the esophagus and further advanced from the esophagus into the stomach. From stomach scope was directed to the second portion of the duodenum. Major papilla was aligned with the duodenoscope. The scope position was confirmed fluoroscopically. Rest of the findings/therapeutics are given below. The scope was then completely withdrawn from the patient and the procedure completed. The pulse, BP, and O2 saturation were monitored and documented by the physician and the nursing staff throughout the entire procedure. The patient was cared for as planned according to standard protocol. The patient was then discharged to recovery in stable condition and with appropriate post procedure care. There was a large periampullary diverticulum. The biliary tree appeared normal with no evidence of stones or filling defects. No ductal dilation, CBD normal in caliber. CBD normal in caliber, no ductal dilation. 8 x 9 cm stent placed in the CBD. ADVERSE EVENT: There were no complications. IMPRESSIONS: 1. Large periampullary diverticulum 2. No ductal dilation, CBD normal in caliber 3. CBD normal in caliber, no ductal dilation. 8 x 9 cm stent placed in the CBD RECOMMENDATIONS: Liver enzymes REPEAT EXAM: Return 4 months ERCP Cody Amador MD eSigned: Cody Amador MD 11/09/2016 4:40 PM cc:
[2016-11-09] MEDS ORDERED: *RESP: ALBUTEROL 2.5 MG/3 ML NEB (PRN) PERIprocedural Use ONLY NEB ONE (16:55)
[2016-11-09] MEDS ORDERED: *morphine SULFATE 8 MG/ML PERIprocedure ONLY ONE (17:10)
[2016-11-09] MEDS ORDERED: DO NOT ADM ANY ANTICOAGULANT DRUGS PRN (17:15)
--- NOTE | 2016-11-09 17:48 | RADRPT ---
EXAM DATE/TIME: 11/09/2016 15:59 [facility] COMPARISON: No previous studies available for comparison. INDICATIONS : Obstruction FLUORO TIME: 1.8 minutes IMAGE COUNT: 4 CONTRAST: Instilled by Ordering Physician MEDICAL HISTORY : Hypertension. Gastroesophageal reflux disease. Metastatic, breast SURGICAL HISTORY : Mastectomy, right. Tonsillectomy. Hysterectomy. Tubal ligation ENCOUNTER: Initial ACUITY: 1 day PAIN SCORE: Non-responsive. LOCATION: Abdomen FINDINGS: An ERCP was performed by the ordering physician. The images demonstrate satisfactory filling of the common duct with no definite filling defects ident ified. Contrast extends into the gallbladder and pancreatic duct. On the final film, a stent is prese nt with satisfactory positioning and good drainage of contrast. CONCLUSION: ERCP as above. Haider Conley MD on November 09, 2016 at 17:45 Board Certified Radiologist. This report was verified electronically.
--- NOTE | 2016-11-09 17:59 | HHI.PR ---
Subjective Remarks patient seen this morning around 11 AM. in sitting up in chair. All 4 daughters in room. Patient reports pain is under control. Denies any shortness of breath. She does report some very short-lived twinge of chest pain this morning which went away in under minute Objective Vital Signs Date Time Temp Pulse Resp B/P Pulse Ox O2 Delivery O2 Flow Rate FiO2 11/09/16 12:00 96.9 91 18 191/99 98 11/09/16 08:27 96.1 91 18 127/80 96 11/09/16 08:19 96 21 11/09/16 05:00 96.3 92 17 164/91 95 11/09/16 00:10 96.0 89 18 166/86 96 11/08/16 20:00 96.0 86 19 143/85 96 11/08/16 18:11 96.7 86 18 118/72 96 I/O 11/08/16 11/08/16 11/08/16 11/09/16 11/09/16 11/09/16 07:00 15:00 23:00 07:00 15:00 23:00 Intake Total 2367 ml 240 ml 1650 ml 895 ml 645 ml Balance 2367 ml 240 ml 1650 ml 895 ml 645 ml Intake Oral 480 ml 240 ml 480 ml 0 ml IV Total 1887 ml 1170 ml 895 ml 645 ml # Voids 3 4 3 2 # Bowel Movements 5 1 0 Result Diagram: 11/09/16 0410 11/09/16 041 Objective Remarks GENERAL: patient sitting up in chair. Appears comfortable. alert to place, situation SKIN: Warm and dry. HEAD: Normocephalic. EYES: No scleral icterus. No injection or drainage. NECK: Supple, trachea midline. No JVD CARDIOVASCULAR: Regular rate and rhythm without murmurs, gallops, or rubs. RESPIRATORY: Breath sounds equal bilaterally. No accessory muscle use. GASTROINTESTINAL: Abdomen soft, non-tender, nondistended. MUSCULOSKELETAL: No cyanosis, or edema. BACK: Nontender without obvious deformity. No CVA tenderness. A/P Assessment and Plan 71-year-old female with history of metastatic breast cancer on palliative chemotherapy, HTN, HLD, GERD, osteoarthritis, CAD, presents with a one-week history of generalized weakness, weight loss, and right upper quadrant abdominal pain. //Generalized Weakness: suspect multifactorial with metastatic breast cancer, abdominal pain, decreased oral intake. Lactic Acid 2.4. Blood cultures collected. UA negative. S/p IV Zosyn in the ED. -Give IVF. -Monitor labs and blood cultures -appreciatePT. //Metastatic Breast Cancer: undergoing palliative chemotherapy with oncologist Dr. Brownlee -MRI 11/07 with brain metastasis as above. Multiple liver metastases on MRCP -Appreciate hematology assistance. -Careful with pain medications due to somnolence/confusion. Discussed with family. -further workup and possible treatment per oncology. Appreciate assistance. //pancytopenia. -secondary to cancer/chemotherapy. no signs of acute bleeding. No fevers. Plan as per hematology/oncology. //Encephalopathy. Multifactorial. Pain medications, metastatic breast cancer based on MRI this admission. Also with transaminitis, elevated bilirubin. Ammonia only mildly elevated. Per discussion with both daughters, will limit pain medications at this time. //Transaminitis with RUQ Abdominal Pain, Weight Loss, Dysphagia: suspect secondary to hepatic metastatic disease vs subacute cholecystitis. CT Abd/ Pelvis images reviewed, showed widespread hepatic metastatic disease; lesions not significantly changed but the liver is slightly larger in the interim and there is now small ascites; low density lesions of the spleen are unchanged; right adrenal lesion is not significantly changed; No obstruction or acute inflammatory changes are seen; Pathologic-appearing harpreet hepatis lymphadenopathy again noted. Liver enzymes trending up now, T. bili 0.7 --> 3.2 , AST 125 --> 264, ALT 59 --> 115, Alk Phos 506 --> 973 -recently evaluated by surgeon Dr. Hays who recommended observation for now with liver enzymes trending down, however now liver enzymes trending up -supportive treatment with IVF, antiemetics, pain control prn. -Oncology and GI following MRCP with multiple liver metastases. Splenic lesion as well. No obvious biliary obstruction indicated. -further imaging planned per oncologyand surgery. ERCP planned.. Appreciate assistance. //Oropharyngeal Candidiasis: patient with some white oropharyngeal patches on exam, suspect contributing to dysphagia -improved.Continue on Magic Mouthwash qid. Avoid systemic therapy due to liver disease. //Hypercalcemia: Calcium 11.4 on admission, increased from 8.9 on 10/18/16. Suspect secondary to dehydration, decreased oral intake. -Improved with IV fluid. Continue IV fluids. //Hypertension: chronic, stable -continue patient's metoprolol and verapamil -held patient's losartan/HCTZ for now with elevated BUN and recent decreased po intake -monitor BP, adjust antihypertensives as needed //Hyperlipidemia: chronic, stable -continue patient's statin //Hypothyroidism: chronic, stable -continue patient's levothyroxine //CAD: chronic, stable -continue patient's aspirin, imdur, BB DVT Prophylaxis: teds/SCDs Discharge Planning metastatic breast cancer to brain and lung. further workup per oncology. Malcom Berger MD November 09, 2016 17:59
[2016-11-09] MEDS ORDERED: MIDAZOLAM HCL 2 MG/2 ML VIAL ONE (18:19)
[2016-11-09] MEDS: PANTOPRAZOLE SOD 20 MG DELAYED RELEASE TAB PO SCH (18:35)
[2016-11-09] MEDS: LACTOBACILLUS ACIDOPHILUS TAB PO SCH (18:35)
[2016-11-09] MEDS: VERAPAMIL HCL 120 MG SUSTAINED RELEASE TAB PO SCH ×2 (18:41→19:16)
[2016-11-09] MEDS: traMADol HCL 50 MG TAB PO PRN (19:15)
[2016-11-09] MEDS: MORPHINE SULFATE 4 MG/ML INJ IV PRN (20:20)
[2016-11-10] MEDS: DEXAMETHASONE SOD PHOS 4 MG/ML VIAL IV PUSH SCH ×3 (00:55→10:59)
[2016-11-10] MEDS: SODIUM CHLORIDE 0.9% FLUSH 10 ML FLUSH IV FLUSH PRN ×2 (01:03→03:39)
[2016-11-10 01:04] VITALS: BP 147/70; PULSE 88; RESP 16; TEMP 96.7; O2SAT 96
[2016-11-10] MEDS: traMADol HCL 50 MG TAB PO PRN ×2 (02:05→11:00)
[2016-11-10] MEDS: MORPHINE SULFATE 4 MG/ML INJ IV PRN ×3 (03:40→13:28)
[2016-11-10 04:00] VITALS: BP 138/77; PULSE 82; RESP 16; O2SAT 93
[2016-11-10] MEDS: LEVOTHYROXINE SODIUM 75 MCG TAB PO SCH (06:19)
[2016-11-10] MEDS: SODIUM CHLOR 0.9% 1000 ML INJ 1,000 ML IV SCH (06:33)
[2016-11-10 06:51] LABS: AUTOMATED NEUTROPHIL # 3.4 TH/MM3 (1.8-7.7); BASOPHIL % 0.3 % (0.0-2.0); HEMATOCRIT 29.8 % (35.0-46.0); LYMPH % 6.7 % (9.0-44.0); LYMPHOCYTE # 0.3 TH/MM3 (1.0-4.8); MEAN CELL VOLUME 96.7 FL (80.0-100.0); MEAN CORPUSCULAR HGB CONC 34.2 % (32.0-36.0); MONO % 12.7 % (0.0-8.0); NEUT % 80.3 % (16.0-70.0); PLATELET COUNT 68 TH/MM3 (150-450); RED BLOOD COUNT 3.08 MIL/MM3 (4.00-5.30); RED CELL DISTRIBUTION WIDTH 28.7 % (11.6-17.2); WHITE BLOOD COUNT 4.2 TH/MM3 (4.0-11.0)
[2016-11-10 06:59] LABS: HEMO FLAGS AUTO DIFF
[2016-11-10 07:35] LABS: ALKALINE PHOSPHATASE 973 U/L (45-117); ALT (GPT) 123 U/L (10-53); ANION GAP 10 MEQ/L (5-15); AST (GOT) 256 U/L (15-37); BICARBONATE 21.7 MEQ/L (21.0-32.0); BLOOD UREA NITROGEN 37 MG/DL (7-18); CHLORIDE 106 MEQ/L (98-107); GLOMERULAR FILTRATION RATE 61 ML/MIN (>89); POTASSIUM 3.8 MEQ/L (3.5-5.1); SODIUM (NA) 138 MEQ/L (136-145); TOTAL BILIRUBIN ADULT 8.5 MG/DL (0.2-1.0)
[2016-11-10 08:00] VITALS: BP 146/87; PULSE 84; RESP 21; TEMP 97.1; O2SAT 93
[2016-11-10] MEDS: ISOSORBIDE MONONITRATE 30 MG TAB PO SCH (08:17)
[2016-11-10] MEDS: LACTOBACILLUS ACIDOPHILUS TAB PO SCH (08:17)
[2016-11-10] MEDS: ASPIRIN 81 MG CHEW TAB CHEW SCH (08:17)
[2016-11-10] MEDS: PANTOPRAZOLE SOD 20 MG DELAYED RELEASE TAB PO SCH (08:18)
[2016-11-10] MEDS: METOPROLOL SUCCINATE 25 MG EXTENDED RELEASE TAB PO SCH (08:18)
[2016-11-10 08:19] LABS: ACANTHOCYTES OCC (NORMAL)
[2016-11-10] MEDS: VERAPAMIL HCL 120 MG SUSTAINED RELEASE TAB PO SCH (08:19)
[2016-11-10 08:20] LABS: HELMET CELLS OCC (NORMAL); PLATELET ESTIMATE SMEAR LOW (NORMAL); PLATELET MORPHOLOGY NORMAL (NORMAL); SCAN/DIFF AUTO DIFF CONFIRMED
[2016-11-10] MEDS: SODIUM CHLORIDE 0.9% FLUSH 10 ML FLUSH IV FLUSH SCH (09:00)
[2016-11-10 10:48] VITALS: BP 123/77; PULSE 74; RESP 20; O2SAT 94
[2016-11-10] MEDS: ONDANSETRON HCL 4 MG/2 ML VIAL IVP PRN (10:59)
[2016-11-10 12:00] VITALS: BP 123/77; PULSE 74; RESP 20; TEMP 98.6; O2SAT 94
--- NOTE | 2016-11-10 12:11 | HHI.GIFU ---
Subjective Remarks Pt resting in bed, visiting with multiple family members. She denies n/v, pain but per RN she is having RUQ pain and it is unchanged; and he is currently medicating her for nausea. (Dee Nair) Objective Vitals I&O Vital Signs Date Time Temp Pulse Resp B/P Pulse Ox O2 Delivery O2 Flow Rate FiO2 11/10/16 10:48 74 20 123/77 94 11/10/16 08:00 97.1 84 21 146/87 93 11/10/16 04:00 82 16 138/77 93 11/10/16 01:04 96.7 88 16 147/70 96 11/09/16 22:57 94 21 11/09/16 20:00 96.9 88 18 124/85 94 11/09/16 17:45 97.7 101 20 134/76 96 Room Air 11/09/16 17:30 101 26 134/76 96 Nasal Cannula 2 11/09/16 17:15 104 28 168/91 97 Aerosol Mask 11/09/16 17:00 101 30 167/98 99 Aerosol Mask 11/09/16 16:45 97.5 93 32 157/86 97 Simple Mask 8 I/O 11/09/16 11/09/16 11/09/16 11/10/16 11/10/16 11/10/16 07:00 15:00 23:00 07:00 15:00 23:00 Intake Total 895 ml 645 ml 1380 ml 1495 ml Output Total 150 ml Balance 895 ml 645 ml 1380 ml 1345 ml Intake Oral 0 ml 480 ml 720 ml IV Total 895 ml 645 ml 400 ml 775 ml Other 500 ml Output Urine Total 150 ml # Voids 2 1 5 # Bowel Movements 0 Laboratory Laboratory Tests Test 11/10/16 03:45 White Blood Count 4.2 Red Blood Count 3.08 Hemoglobin 10.2 Hematocrit 29.8 Mean Corpuscular Volume 96.7 Mean Corpuscular Hemoglobin 33.0 Mean Corpuscular Hemoglobin 34.2 Concent Red Cell Distribution Width 28.7 Platelet Count 68 Mean Platelet Volume 9.2 Neutrophils (%) (Auto) 80.3 Lymphocytes (%) (Auto) 6.7 Monocytes (%) (Auto) 12.7 Eosinophils (%) (Auto) 0.0 Basophils (%) (Auto) 0.3 Neutrophils # (Auto) 3.4 Lymphocytes # (Auto) 0.3 Monocytes # (Auto) 0.5 Eosinophils # (Auto) 0.0 Basophils # (Auto) 0.0 CBC Comment AUTO DIFF Differential Comment AUTO DIFF CONFIRMED Platelet Estimate LOW Platelet Morphology Comment NORMAL Helmet Cells OCC Acanthocytes OCC Sodium Level 138 Potassium Level 3.8 Chloride Level 106 Carbon Dioxide Level 21.7 Anion Gap 10 Blood Urea Nitrogen 37 Creatinine 0.91 Estimat Glomerular Filtration 61 Rate Random Glucose 103 Calcium Level 8.5 Total Bilirubin 8.5 Direct Bilirubin 7.1 Aspartate Amino Transf 256 (AST/SGOT) Alanine Aminotransferase 123 (ALT/SGPT) Alkaline Phosphatase 973 Total Protein 5.1 Albumin 2.0 Date/Time Procedure Status Source Growth 11/06/16 02:37 Aerobic Blood Culture - Preliminary Resulted Blood Peripheral NO GROWTH IN 4 DAYS 11/06/16 02:37 Anaerobic Blood Culture - Preliminary Resulted Blood Peripheral NO GROWTH IN 4 DAYS Imaging Last Impressions GI Procedure 11/09/16 0000 Signed Impressions: Service Date/Time: Wednesday, November 09, 2016 15:59 - CONCLUSION: ERCP as above. Haider Conley MD Bone Scan Nuclear Medicine 11/09/16 0000 Signed Impressions: Service Date/Time: Wednesday, November 09, 2016 12:31 - CONCLUSION: Concerning areas of increased tracer uptake corresponding to suspicious bony lesions in L4 vertebral body and the sacrum. Uptake in the midshaft of the right tibia also concerning. Haider Conley MD Cholangiopancreatography MRI 11/07/16 0000 Signed Impressions: Service Date/Time: Monday, November 07, 2016 08:43 - CONCLUSION: Widespread liver metastases and indeterminate splenic lesion are noted. Right renal cysts. Peripancreatic edema is noted and the possibility of pancreatitis is not excluded. No evidence for biliary obstruction. Note is also made of bilateral pleural effusions and basilar airspace disease. Donell Estrella MD Chest CT 11/07/16 0000 Signed Impressions: Service Date/Time: Tuesday, November 08, 2016 08:41 - CONCLUSION: 1. Increased atelectasis at the medial left lung base. Atelectasis is in the region of previously identified nodular density. The nodular density in this region is no longer identified. 2. 6 mm nodular density more centrally in the left lower lobe is unchanged. 3. New very small bilateral pleural effusions. 4. Subcarinal and left hilar enlarged lymph nodes unchanged. 5. Multiple hepatic masses unchanged. Kenji Mendoza MD Brain MRI 11/07/16 0000 Signed Impressions: Service Date/Time: Monday, November 07, 2016 12:36 - CONCLUSION: 1. Solitary enhancing mass right cerebellar hemisphere with a small amount of surrounding vasogenic edema characteristic of metastatic disease to the brain. 2. No definite additional foci of abnormal enhancement are seen, however there is abnormal increased flair and T2 signal involving the bilateral occipital and parietal cortical/subcortical regions. This is nonspecific but can be seen with posterior reversible encephalopathy syndrome. Donell Estrella MD Abdomen/Pelvis CT 11/06/16 0000 Signed Impressions: Service Date/Time: Sunday, November 06, 2016 04:05 - CONCLUSION: 1. Widespread hepatic metastatic disease. The lesions are not significantly changed but the liver is slightly larger in the interim and there is now small ascites. 2. The low density lesions of the spleen are unchanged. 3. The right adrenal lesion is not significantly changed. 4. No obstruction or acute inflammatory changes are seen. 5. Pathologic-appearing harpreet hepatis lymphadenopathy again noted. There are upper limits of normal retroperitoneal lymph nodes. 6. Unchanged sclerotic area right side of the L5 vertebral body, nonspecific but not significantly changed and quite possibly degenerative. No other focal bone lesion is demonstrated. 7. Small effusion and subcarinal as well as left hilar lymphadenopathy partly seen of the lower chest. Haider Topete MD Physical Exam HEENT: EOMI. normocephalic; jaundice. NECK: Neck is supple. CHEST: CTA CARDIAC: RRR ABDOMEN: Obese,soft, nondistended, RUQ TTP; bowel sounds are present x 4. EXTREMITIES: No clubbing, cyanosis, or edema. SKIN: generalized pallor, jaundice. COMMUNITY ARTIST: lethargic. (Dee Nair CORPORATE TAX MANAGER) Assessment and Plan Plan ASSESSMENT: - Right upper quadrant pain, nausea. s/p ERCP with stent placement 11/09/16 ---> large periampullary diverticulum, no ducatal dilatation, CBD normal. CT scan of the abdomen and pelvis (11/06/16)----> 1. Widespread hepatic metastatic disease. The lesions are not significantly changed but the liver is slightly larger in the interim and there is now small ascites. 2. The low density lesions of the spleen are unchanged. 3. The right adrenal lesion is not significantly changed. 4. No obstruction or acute inflammatory changes are seen. 5. Pathologic-appearing harpreet hepatis lymphadenopathy again noted. There are upper limits of normal retroperitoneal lymph nodes. 6. Unchanged sclerotic area right side of the L5 vertebral body, nonspecific but not significantly changed and quite possibly degenerative. No other focal bone lesion is demonstrated. 7. Small effusion and subcarinal as well as left hilar lymphadenopathy partly seen of the lower chest. Chest CT 11/07/16--1. Increased atelectasis at the medial left lung base. Atelectasis is in the region of previously identified nodular density. The nodular density in this region is no longer identified. 2. 6 mm nodular density more centrally in the left lower lobe is unchanged. 3. New very small bilateral pleural effusions. 4. Subcarinal and left hilar enlarged lymph nodes unchanged. 5. Multiple hepatic masses unchanged. Cholangiopancreatography MRI 11/07/16--Widespread liver metastases and indeterminate splenic lesion are noted. Right renal cysts. Peripancreatic edema is noted and the possibility of pancreatitis is not excluded. No evidence for biliary obstruction. Note is also made of bilateral pleural effusions and basilar airspace disease LFTs elevated. Today T. Bili 8.5, AST 256, ALT 123, Alk Phosph 973. She was recently seen in the ER for right upper quadrant pain and this was attributed to cholecystitis based on distended, wall thickening of the GB. She was seen by Dr. Hays, who recommended observation since her liver enzymes and pain had improved and almost resolved when he saw the patient. Of note, her gb appears normal on the most recent ct exam. ? related to metastatic disease. - Elevated LFTs. Increasing. CT as above. The patient reports she is not aware of any metastatic disease to the liver, but according to records, Dr. Brownlee noted that she had a PET scan (05/22/16) which revealed uptake in multiple pulmonary nodules left lung, left hilum, and mediastinum, and multiple liver masses, extensive bone mets, L2, L4, S1, Sacral ala, left proximal femur. There was also a liver biopsy with revealed adenocarcinoma consistent with breast mets. She has had elevated LFTs since July of this year. ? related to metastatic disease. - Anemia. 10.2, 29.8. - Metastatic breast cancer. On palliative chemotherapy with Dr. Brownlee. Looking at the records, she has metastatic breast cancer and is on Palliative chemotherapy with carboplatin and Gemzar. She cannot tell me when she last had this. Prior to this, she had right mastectomy, taxol and avastin, radiation and abraxane and radiation in 2012 for recurrence to the right neck. PLAN: - Case discussed with Dr. Brownlee, going to check tumor burden of chest - Hospice consult considered - Avoid hepatotoxic meds - Pain and elevated LFTs are most likely related to metastatic disease to the liver - supportive care Patient seen and examined by Dr. Amador and myself and this note is written on his behalf. (Dee Nair) Physician Comments Seen and examined with CORPORATE TAX MANAGER, LFTs worsening, s/p ercp/stent. Hospice with comfort care being considered. GI will sign off, reconsult as needed. Thank you (Cody Amador MD) Dee Nair November 10, 2016 12:11 Cody Amador MD November 10, 2016 14:38
--- NOTE | 2016-11-10 14:40 | HHI.PR ---
Subjective Remarks pt somnolent after moprphine this am. had been reporting abd pain earlier. dw hospice and daughhters at bedside. pt and family have opted for home with hospice. Objective Vital Signs Date Time Temp Pulse Resp B/P Pulse Ox O2 Delivery O2 Flow Rate FiO2 11/10/16 12:10 16 11/10/16 12:00 98.6 74 20 123/77 94 11/10/16 10:48 74 20 123/77 94 11/10/16 08:00 97.1 84 21 146/87 93 11/10/16 04:00 82 16 138/77 93 11/10/16 01:04 96.7 88 16 147/70 96 11/09/16 22:57 94 21 11/09/16 20:00 96.9 88 18 124/85 94 11/09/16 17:45 97.7 101 20 134/76 96 Room Air 11/09/16 17:30 101 26 134/76 96 Nasal Cannula 2 11/09/16 17:15 104 28 168/91 97 Aerosol Mask 11/09/16 17:00 101 30 167/98 99 Aerosol Mask 11/09/16 16:45 97.5 93 32 157/86 97 Simple Mask 8 I/O 11/09/16 11/09/16 11/09/16 11/10/16 11/10/16 11/10/16 07:00 15:00 23:00 07:00 15:00 23:00 Intake Total 895 ml 645 ml 1380 ml 1495 ml Output Total 150 ml Balance 895 ml 645 ml 1380 ml 1345 ml Intake Oral 0 ml 480 ml 720 ml IV Total 895 ml 645 ml 400 ml 775 ml Other 500 ml Output Urine Total 150 ml # Voids 2 1 5 # Bowel Movements 0 Result Diagram: 11/10/16 0345 11/10/16 0345 Objective Remarks GENERAL: lying in bed. somnolent. responds with moaning. SKIN: Warm and dry. HEAD: Normocephalic. EYES: No scleral icterus. No injection or drainage. NECK: Supple, trachea midline. No JVD CARDIOVASCULAR: Regular rate and rhythm without murmurs, gallops, or rubs. RESPIRATORY: Breath sounds equal bilaterally. No accessory muscle use. GASTROINTESTINAL: Abdomen soft, non-tender, nondistended. MUSCULOSKELETAL: No cyanosis, or edema. BACK: Nontender without obvious deformity. No CVA tenderness. A/P Assessment and Plan 71-year-old female with history of metastatic breast cancer on palliative chemotherapy, HTN, HLD, GERD, osteoarthritis, CAD, presents with a one-week history of generalized weakness, weight loss, and right upper quadrant abdominal pain. //Generalized Weakness: suspect multifactorial with metastatic breast cancer, abdominal pain, decreased oral intake. Lactic Acid 2.4. Blood cultures collected. UA negative. S/p IV Zosyn in the ED. -Give IVF. -Monitor labs and blood cultures -appreciatePT. //Metastatic Breast Cancer: undergoing palliative chemotherapy with oncologist Dr. Brownlee -MRI 11/07 with brain metastasis as above. Multiple liver metastases on MRCP -Appreciate hematology assistance. -Careful with pain medications due to somnolence/confusion. Discussed with family. -further workup and possible treatment per oncology. Appreciate assistance. =11/10 s/p ERCp negative with stent placement however. mets on imaging. hospice per family. //pancytopenia. -secondary to cancer/chemotherapy. no signs of acute bleeding. No fevers. Plan as per hematology/oncology. //Encephalopathy. Multifactorial. Pain medications, metastatic breast cancer based on MRI this admission. Also with transaminitis, elevated bilirubin. Ammonia only mildly elevated. Per discussion with both daughters, will limit pain medications at this time. //Transaminitis with RUQ Abdominal Pain, Weight Loss, Dysphagia: suspect secondary to hepatic metastatic disease vs subacute cholecystitis. CT Abd/ Pelvis images reviewed, showed widespread hepatic metastatic disease; lesions not significantly changed but the liver is slightly larger in the interim and there is now small ascites; low density lesions of the spleen are unchanged; right adrenal lesion is not significantly changed; No obstruction or acute inflammatory changes are seen; Pathologic-appearing harpreet hepatis lymphadenopathy again noted. Liver enzymes trending up now, T. bili 0.7 --> 3.2 , AST 125 --> 264, ALT 59 --> 115, Alk Phos 506 --> 973 -recently evaluated by surgeon Dr. Hays who recommended observation for now with liver enzymes trending down, however now liver enzymes trending up -supportive treatment with IVF, antiemetics, pain control prn. -Oncology and GI following MRCP for/29 with multiple liver metastases. Splenic lesion as well. No obvious biliary obstruction indicated. -ERCP negative. Stent placed however. Bilirubin slightly increased. Likely secondary to malignancy. -Patient likely discharged hospice. //Oropharyngeal Candidiasis: patient with some white oropharyngeal patches on exam, suspect contributing to dysphagia -improved.Continue on Magic Mouthwash qid. Avoid systemic therapy due to liver disease. //Hypercalcemia: Calcium 11.4 on admission, increased from 8.9 on 10/18/16. Suspect secondary to dehydration, decreased oral intake. -Improved with IV fluid. Continue IV fluids. //Hypertension: chronic, stable -continue patient's metoprolol and verapamil -held patient's losartan/HCTZ for now with elevated BUN and recent decreased po intake -monitor BP, adjust antihypertensives as needed //Hyperlipidemia: chronic, stable -continue patient's statin //Hypothyroidism: chronic, stable -continue patient's levothyroxine //CAD: chronic, stable -continue patient's aspirin, imdur, BB DVT Prophylaxis: teds/SCDs Discharge Planning metastatic breast cancer to brain and lung. -Discharged to hospice. Malcom Berger MD November 10, 2016 14:40
--- NOTE | 2016-11-10 14:43 | HHI.DS ---
Discharge Summary Admission Date Nov 07, 2016 at 16:50 Discharge Date: November 10, 2016 Admitting Diagnosis Hypercalcemia, dehydration (1) Metastatic breast cancer ICD Code: C50.919 (2) Liver masses ICD Code: R16.0 (3) Brain metastases ICD Code: C79.31 Procedures ERCP. Brief History - From Admission 71-year-old female with history of metastatic breast cancer on palliative chemotherapy, HTN, HLD, GERD, osteoarthritis, CAD, presents with a one-week history of generalized weakness, weight loss, and abdominal pain. She locates the pain to the RUQ without radiation, described as a constant moderate pain, unchanged over the past month. Denies any nausea/vomiting/diarrhea. Denies fevers or chills. She reports poor appetite and has only been able to eat very small amounts. She reports difficulty swallowing solids and sometimes liquids which she believes is getting worse. She has lost 11lbs over the past week. Family at bedside reports she has been deteriorating over the past week and is very unsteady on her feet even with a walker and they are worried about her falling. She has been seeing her oncologist Dr. Brownlee who was concerned for cholecystitis, referred her to general surgeon Dr. Hays who recommended observation for now with liver enzymes trending down. CBC/BMP: 11/10/16 0345 11/10/16 0345 Significant Findings Laboratory Tests Test 11/08/16 11/09/16 11/10/16 11/10/16 06:28 04:10 03:45 12:30 White Blood Count 2.2 TH/MM3 2.8 TH/MM3 (4.0-11.0) (4.0-11.0) Red Blood Count 2.66 MIL/MM3 2.58 MIL/MM3 3.08 MIL/MM3 (4.00-5.30) (4.00-5.30) (4.00-5.30) Hemoglobin 8.3 GM/DL 8.4 GM/DL 10.2 GM/DL (11.6-15.3) (11.6-15.3) (11.6-15.3) Hematocrit 25.8 % 24.8 % 29.8 % (35.0-46.0) (35.0-46.0) (35.0-46.0) Red Cell Distribution Width 27.5 % 28.1 % 28.7 % (11.6-17.2) (11.6-17.2) (11.6-17.2) Platelet Count 48 TH/MM3 55 TH/MM3 68 TH/MM3 (150-450) (150-450) (150-450) Neutrophils (%) (Auto) 71.8 % 72.4 % 80.3 % (16.0-70.0) (16.0-70.0) (16.0-70.0) Monocytes (%) (Auto) 12.8 % 14.4 % 12.7 % (0.0-8.0) (0.0-8.0) (0.0-8.0) Neutrophils # (Auto) 1.6 TH/MM3 (1.8-7.7) Lymphocytes # (Auto) 0.3 TH/MM3 0.4 TH/MM3 0.3 TH/MM3 (1.0-4.8) (1.0-4.8) (1.0-4.8) Platelet Estimate LOW (NORMAL) LOW (NORMAL) LOW (NORMAL) Ovalocytes 1+ (NORMAL) Acanthocytes OCC (NORMAL) OCC (NORMAL) OCC (NORMAL) Prothrombin Time 13.5 SEC (9.8-11.6) Sodium Level 134 MEQ/L (136-145) Carbon Dioxide Level 20.5 MEQ/L (21.0-32.0) Blood Urea Nitrogen 32 MG/DL (7-18) 33 MG/DL (7-18) 37 MG/DL (7-18) Creatinine 1.01 MG/DL (0.50-1.00) Estimat Glomerular Filtration 54 ML/MIN (>89) 57 ML/MIN (>89) 61 ML/MIN (>89) Rate Random Glucose 113 MG/DL 148 MG/DL (74-106) (74-106) Total Bilirubin 6.3 MG/DL 5.9 MG/DL 8.5 MG/DL (0.2-1.0) (0.2-1.0) (0.2-1.0) Direct Bilirubin 5.2 MG/DL 4.8 MG/DL 7.1 MG/DL (0.0-0.2) (0.0-0.2) (0.0-0.2) Indirect Bilirubin 1.1 MG/DL 1.1 MG/DL (0.0-0.8) (0.0-0.8) Aspartate Amino Transf 236 U/L (15-37) 225 U/L (15-37) 256 U/L (15-37) (AST/SGOT) Alanine Aminotransferase 102 U/L (10-53) 103 U/L (10-53) 123 U/L (10-53) (ALT/SGPT) Alkaline Phosphatase 924 U/L 871 U/L 973 U/L (45-117) (45-117) (45-117) Total Protein 5.5 GM/DL 5.0 GM/DL 5.1 GM/DL (6.4-8.2) (6.4-8.2) (6.4-8.2) Albumin 2.1 GM/DL 2.0 GM/DL 2.0 GM/DL (3.4-5.0) (3.4-5.0) (3.4-5.0) Lymphocytes (%) (Auto) 6.7 % (9.0-44.0) Ammonia 55 MCMOL/L (11-32) Imaging Last Impressions GI Procedure 11/09/16 0000 Signed Impressions: Service Date/Time: Wednesday, November 09, 2016 15:59 - CONCLUSION: ERCP as above. Haider Conley MD Bone Scan Nuclear Medicine 11/09/16 0000 Signed Impressions: Service Date/Time: Wednesday, November 09, 2016 12:31 - CONCLUSION: Concerning areas of increased tracer uptake corresponding to suspicious bony lesions in L4 vertebral body and the sacrum. Uptake in the midshaft of the right tibia also concerning. Haider Conley MD Cholangiopancreatography MRI 11/07/16 0000 Signed Impressions: Service Date/Time: Monday, November 07, 2016 08:43 - CONCLUSION: Widespread liver metastases and indeterminate splenic lesion are noted. Right renal cysts. Peripancreatic edema is noted and the possibility of pancreatitis is not excluded. No evidence for biliary obstruction. Note is also made of bilateral pleural effusions and basilar airspace disease. Donell Estrella MD Chest CT 11/07/16 0000 Signed Impressions: Service Date/Time: Tuesday, November 08, 2016 08:41 - CONCLUSION: 1. Increased atelectasis at the medial left lung base. Atelectasis is in the region of previously identified nodular density. The nodular density in this region is no longer identified. 2. 6 mm nodular density more centrally in the left lower lobe is unchanged. 3. New very small bilateral pleural effusions. 4. Subcarinal and left hilar enlarged lymph nodes unchanged. 5. Multiple hepatic masses unchanged. Kenji Mendoza MD Brain MRI 11/07/16 0000 Signed Impressions: Service Date/Time: Monday, November 07, 2016 12:36 - CONCLUSION: 1. Solitary enhancing mass right cerebellar hemisphere with a small amount of surrounding vasogenic edema characteristic of metastatic disease to the brain. 2. No definite additional foci of abnormal enhancement are seen, however there is abnormal increased flair and T2 signal involving the bilateral occipital and parietal cortical/subcortical regions. This is nonspecific but can be seen with posterior reversible encephalopathy syndrome. Donell Estrella MD Abdomen/Pelvis CT 11/06/16 0000 Signed Impressions: Service Date/Time: Sunday, November 06, 2016 04:05 - CONCLUSION: 1. Widespread hepatic metastatic disease. The lesions are not significantly changed but the liver is slightly larger in the interim and there is now small ascites. 2. The low density lesions of the spleen are unchanged. 3. The right adrenal lesion is not significantly changed. 4. No obstruction or acute inflammatory changes are seen. 5. Pathologic-appearing harpreet hepatis lymphadenopathy again noted. There are upper limits of normal retroperitoneal lymph nodes. 6. Unchanged sclerotic area right side of the L5 vertebral body, nonspecific but not significantly changed and quite possibly degenerative. No other focal bone lesion is demonstrated. 7. Small effusion and subcarinal as well as left hilar lymphadenopathy partly seen of the lower chest. Haider Topete MD Hospital Course Patient was treated with IV fluids, with some improvement. Somnolence Improved with discontinuation of narcotics. Patient was found to have transaminitis with elevated bilirubin, found to have liver metastases on imaging as above. Underwent ERCP with no obstruction found; biliary stent was placed. Patient was found to have brain metastasis on imaging as above. Oncology followed during admission. Due to multiple metastasis, poor prognosis, family opted for hospice at home. For problem-based summary from most recent progress note, please see below. 71-year-old female with history of metastatic breast cancer on palliative chemotherapy, HTN, HLD, GERD, osteoarthritis, CAD, presents with a one-week history of generalized weakness, weight loss, and right upper quadrant abdominal pain. //Generalized Weakness: suspect multifactorial with metastatic breast cancer, abdominal pain, decreased oral intake. Lactic Acid 2.4. Blood cultures collected. UA negative. S/p IV Zosyn in the ED. -Give IVF. -Monitor labs and blood cultures -appreciatePT. //Metastatic Breast Cancer: undergoing palliative chemotherapy with oncologist Dr. Brownlee -MRI 11/07 with brain metastasis as above. Multiple liver metastases on MRCP -Appreciate hematology assistance. -Careful with pain medications due to somnolence/confusion. Discussed with family. -further workup and possible treatment per oncology. Appreciate assistance. =11/10 s/p ERCp negative with stent placement however. mets on imaging. hospice per family. //pancytopenia. -secondary to cancer/chemotherapy. no signs of acute bleeding. No fevers. Plan as per hematology/oncology. //Encephalopathy. Multifactorial. Pain medications, metastatic breast cancer based on MRI this admission. Also with transaminitis, elevated bilirubin. Ammonia only mildly elevated. Per discussion with both daughters, will limit pain medications at this time. //Transaminitis with RUQ Abdominal Pain, Weight Loss, Dysphagia: suspect secondary to hepatic metastatic disease vs subacute cholecystitis. CT Abd/ Pelvis images reviewed, showed widespread hepatic metastatic disease; lesions not significantly changed but the liver is slightly larger in the interim and there is now small ascites; low density lesions of the spleen are unchanged; right adrenal lesion is not significantly changed; No obstruction or acute inflammatory changes are seen; Pathologic-appearing harpreet hepatis lymphadenopathy again noted. Liver enzymes trending up now, T. bili 0.7 --> 3.2 , AST 125 --> 264, ALT 59 --> 115, Alk Phos 506 --> 973 -recently evaluated by surgeon Dr. Hays who recommended observation for now with liver enzymes trending down, however now liver enzymes trending up -supportive treatment with IVF, antiemetics, pain control prn. -Oncology and GI following MRCP with multiple liver metastases. Splenic lesion as well. No obvious biliary obstruction indicated. -ERCP negative. Stent placed however. Bilirubin slightly increased. Likely secondary to malignancy. -Patient likely discharged hospice. //Oropharyngeal Candidiasis: patient with some white oropharyngeal patches on exam, suspect contributing to dysphagia -improved.Continue on Magic Mouthwash qid. Avoid systemic therapy due to liver disease. //Hypercalcemia: Calcium 11.4 on admission, increased from 8.9 on 10/18/16. Suspect secondary to dehydration, decreased oral intake. -Improved with IV fluid. Continue IV fluids. //Hypertension: chronic, stable -continue patient's metoprolol and verapamil -held patient's losartan/HCTZ for now with elevated BUN and recent decreased po intake -monitor BP, adjust antihypertensives as needed //Hyperlipidemia: chronic, stable -continue patient's statin //Hypothyroidism: chronic, stable -continue patient's levothyroxine //CAD: chronic, stable -continue patient's aspirin, imdur, BB DVT Prophylaxis: teds/SCDs Pt Condition on Discharge: Stable Discharge Disposition: Hospice/ Home Discharge Time: <= 30 minutes Discharge Instructions DIET: Follow Instructions for: As Tolerated, No Restrictions Speech Therapy-Diet Recommends: Regular Activities you can perform: Regular-No Restrictions Additional Information Discharged to hospice. Malcom Berger MD November 10, 2016 14:43
--- NOTE | 2016-11-10 15:33 | PD.ONC.PN ---
Subjective Subjective Remarks Afebrile overnight. Patient's family has chosen hospice. She is about to leave to go home. Objective Data Date Time Temp Pulse Resp B/P Pulse Ox O2 Delivery O2 Flow Rate FiO2 11/10/16 12:10 16 11/10/16 12:00 98.6 74 20 123/77 94 11/10/16 10:48 74 20 123/77 94 11/10/16 08:00 97.1 84 21 146/87 93 11/10/16 04:00 82 16 138/77 93 11/10/16 01:04 96.7 88 16 147/70 96 11/09/16 22:57 94 21 11/09/16 20:00 96.9 88 18 124/85 94 11/09/16 17:45 97.7 101 20 134/76 96 Room Air 11/09/16 17:30 101 26 134/76 96 Nasal Cannula 2 11/09/16 17:15 104 28 168/91 97 Aerosol Mask 11/09/16 17:00 101 30 167/98 99 Aerosol Mask 11/09/16 16:45 97.5 93 32 157/86 97 Simple Mask 8 11/10/16 11/10/16 11/10/16 07:00 15:00 23:00 Intake Total 1495 ml Output Total 150 ml Balance 1345 ml Result Diagram: 11/10/16 0345 11/10/16 0345 Laboratory Results Laboratory Tests Test 11/10/16 11/10/16 03:45 12:30 White Blood Count 4.2 TH/MM3 Red Blood Count 3.08 MIL/MM3 Hemoglobin 10.2 GM/DL Hematocrit 29.8 % Mean Corpuscular Volume 96.7 FL Mean Corpuscular Hemoglobin 33.0 PG Mean Corpuscular Hemoglobin 34.2 % Concent Red Cell Distribution Width 28.7 % Platelet Count 68 TH/MM3 Mean Platelet Volume 9.2 FL Neutrophils (%) (Auto) 80.3 % Lymphocytes (%) (Auto) 6.7 % Monocytes (%) (Auto) 12.7 % Eosinophils (%) (Auto) 0.0 % Basophils (%) (Auto) 0.3 % Neutrophils # (Auto) 3.4 TH/MM3 Lymphocytes # (Auto) 0.3 TH/MM3 Monocytes # (Auto) 0.5 TH/MM3 Eosinophils # (Auto) 0.0 TH/MM3 Basophils # (Auto) 0.0 TH/MM3 CBC Comment AUTO DIFF Differential Comment AUTO DIFF CONFIRMED Platelet Estimate LOW Platelet Morphology Comment NORMAL Helmet Cells OCC Acanthocytes OCC Sodium Level 138 MEQ/L Potassium Level 3.8 MEQ/L Chloride Level 106 MEQ/L Carbon Dioxide Level 21.7 MEQ/L Anion Gap 10 MEQ/L Blood Urea Nitrogen 37 MG/DL Creatinine 0.91 MG/DL Estimat Glomerular Filtration 61 ML/MIN Rate Random Glucose 103 MG/DL Calcium Level 8.5 MG/DL Total Bilirubin 8.5 MG/DL Direct Bilirubin 7.1 MG/DL Aspartate Amino Transf 256 U/L (AST/SGOT) Alanine Aminotransferase 123 U/L (ALT/SGPT) Alkaline Phosphatase 973 U/L Total Protein 5.1 GM/DL Albumin 2.0 GM/DL Ammonia 55 MCMOL/L Administered Medications Medications (Trade) Dose Ordered Sig/Andrew Route PRN Reason Start Time Stop Time Status Last Admin Dose Admin Sodium Chloride (NS Flush) 2 ml UNSCH PRN IV FLUSH FLUSH AFTER USING IV ACCESS 11/06/16 05:15 11/10/16 03:39 Sodium Chloride (NS Flush) 2 ml BID IV FLUSH 11/06/16 09:00 11/10/16 09:00 Aspirin (Aspirin Chew) 162 mg DAILY CHEW 11/06/16 09:00 11/10/16 08:17 Isosorbide Mononitrate (Imdur) 30 mg DAILY PO 11/06/16 09:00 11/10/16 08:17 Lactobacillus Acidophilus (Lactinex) 1 tab DAILY PO 11/06/16 09:00 11/10/16 08:17 Levothyroxine Sodium (Synthroid) 75 mcg DAILY@06 PO 11/06/16 09:00 11/10/16 06:19 Metoprolol Succinate (Toprol Xl) 25 mg DAILY PO 11/06/16 09:00 11/10/16 08:18 Temazepam (Restoril) 15 mg HS PRN PO INSOMNIA 11/06/16 07:30 11/08/16 21:46 Pantoprazole Sodium (Protonix) 20 mg DAILY PO 11/06/16 09:00 11/10/16 08:18 Verapamil HCl (Isoptin Sr) 120 mg DAILY PO 11/06/16 09:00 11/10/16 08:19 Ondansetron HCl (Zofran Inj) 4 mg Q6H PRN IVP NAUSEA OR VOMITING 11/06/16 07:30 11/10/16 10:59 Morphine Sulfate 4 mg 4 mg Q3H PRN IV BREAKTHROUGH PAIN 11/06/16 07:30 11/10/16 13:28 Sodium Chloride (NS 1000 ml Inj) 1,000 ml @ 100 mls/hr Q10H IV 11/06/16 08:00 11/10/16 06:33 Multi-Ingredient Mouthwash/Gargle (Magic Mouthwash Adult Liq) 5 ml QID SWISH-SWAL 11/06/16 13:00 Hold 11/07/16 09:00 Enalaprilat (Vasotec Inj) 1.25 mg Q6H PRN IV PUSH SBP>180, DBP>95 11/07/16 00:15 11/09/16 12:15 Lactulose (Lactulose Liq) 30 ml QID PO 11/07/16 13:00 Hold 11/07/16 21:33 Tramadol HCl (Ultram) 50 mg Q8H PRN PO PAIN SCALE 1 TO 10 11/07/16 17:00 11/10/16 11:00 Dexamethasone Sodium Phosphate (Decadron Inj) 4 mg Q6HR IV PUSH 11/07/16 18:00 11/10/16 10:59 Objective Remarks GENERAL: Elderly female, supine in bed with daughters at bedside. SKIN: Warm and dry. HEAD: Normocephalic. EYES: ++scleral icterus. No injection or drainage. NECK: Supple, trachea midline. CARDIOVASCULAR: Regular rate and rhythm RESPIRATORY: Breath sounds equal bilaterally. No accessory muscle use. GASTROINTESTINAL: Abdomen soft, non-tender, nondistended. Assessment/Plan Assessment 71y/o female with metastatic breast cancer. h/o GERD, Hypercholesterolemia. Hypothyroidism. Irregular heart beat. Osteoarthritis. Peripheral neuropathy. Coronary artery disease. Diverticulosis. Plan 1. patient's family has chosen hospice. clear for discharge to hospice 2. comfort measures only Attending Statement c/o RUQ pain. Had morphine., Confuse, lethargic, LFT are worsening,Ammonia is rising. I recommend hospice. Family has agreed. Consult hospice. Ok to d/c The exam, history, and the medical decision-making described in the above note were completed with the assistance of the mid-level provider. I reviewed and agree with the findings presented. I attest that I had a [id number] encounter with the patient on the same day, and personally performed and documented my assessment and findings in the medical record. Diane Velarde November 10, 2016 15:33 Brandon Brownlee MD November 11, 2016 05:48
[2016-11-10 15:38] VITALS: BP 120/80; PULSE 80; RESP 14; O2SAT 94
== END 2016-11-10 15:40 | disposition hospice, home (50) | DRG 640 ==
LOC: NEPE 02:23 → NEDA 05:05 → HOCB 11:48 → OBSVTOIN 11-07 16:50
PROVIDERS: ADMIT Internal Medicine; ATTEND Internal Medicine
PROC: 0F798DZ Dilation of Common Bile Duct with Intraluminal Device, Via Natural or Artificial Opening Endoscopic (ICD-10-PCS; principal; 2016-11-09 15:15)
PROC: BF101ZZ Fluoroscopy of Bile Ducts using Low Osmolar Contrast (ICD-10-PCS; 2016-11-09 15:15)
DX: E83.52 Hypercalcemia (principal); G93.40 Encephalopathy, unspecified; B37.89 Other sites of candidiasis; D61.818 Other pancytopenia; B37.0 Candidal stomatitis; C78.00 Secondary malignant neoplasm of unspecified lung; R63.0 Anorexia; C78.7 Secondary malignant neoplasm of liver and intrahepatic bile duct; C79.31 Secondary malignant neoplasm of brain; C79.51 Secondary malignant neoplasm of bone; E86.0 Dehydration; G62.9 Polyneuropathy, unspecified; R13.10 Dysphagia, unspecified; Z85.3 Personal history of malignant neoplasm of breast; Z92.21 Personal history of antineoplastic chemotherapy; T45.1X5A Adverse effect of antineoplastic and immunosuppressive drugs, initial encounter; I10 Essential (primary) hypertension; E78.5 Hyperlipidemia, unspecified; K21.9 Gastro-esophageal reflux disease without esophagitis; M19.90 Unspecified osteoarthritis, unspecified site; I25.10 Atherosclerotic heart disease of native coronary artery without angina pectoris; E03.9 Hypothyroidism, unspecified; K64.9 Unspecified hemorrhoids; R74.0 Nonspecific elevation of levels of transaminase and lactic acid dehydrogenase [LDH]; R74.8 Abnormal levels of other serum enzymes; R63.4 Abnormal weight loss; H91.92 Unspecified hearing loss, left ear; K31.4 Gastric diverticulum; Z51.5 Encounter for palliative care; Z92.3 Personal history of irradiation; Z90.11 Acquired absence of right breast and nipple; Z17.1 Estrogen receptor negative status [ER-]
CPT/HCPCS: 36591; 70553; 71260; 74177; 74181; 74330; 76377; 78306; 80048; 80053; 80069; 80076; 81001; 82140; 82248; 83605; 83735; 84134; 85025; 85610; 87040; 93005; 94664; 96360; 96361; A9503; A9579; C1769; C2625; G0378; G8987-GP; G8988-GP; G8996-GN; G8997-GN; G8998-GN; J1100; J1642; J2250; J2270; J2405; J2430; J2543; J2805; J3010; J7030; J7040; J7613; Q9967